=== PATIENT | female | born 1955 | race Caucasian/White ===

== ENCOUNTER 2020-02-02 19:32 | Inpatient (IN) ==
[2020-02-02] MEDS ORDERED: SODIUM CHLORIDE 0.9% 1000ML 500 ML IV ONE (19:55)
[2020-02-02] MEDS ORDERED: DEXAMETHASONE SOD INJ 10 MG/ML VIAL IV ONE (19:55)
--- NOTE | 2020-02-02 20:03 | Emergency Department Note ---
Impression & Plan COVID-19, Hypoxia, Breathlessness, Weakness, Pulmonary embolism ED Provider Note Provider: Edward Milligan MD DATE OF SERVICE:02/02/2020 CHIEF COMPLAINT: Shortness of breath, weakness HISTORY OF PRESENT ILLNESS: Patient is a 64-year-old female history of hypothyroidism presenting today with complaints of weakness and shortness of breath. Patient states began to have symptoms proximally January 13 was tested on January 18 and positive for coronavirus. Since that time has been dealing w ith intermittent fever shortness of breath and weakness. Patient states Levit of burning chest pain. Denies any nausea vomiting or significant diarrhea. Denies abdominal pain. Denies significant rash. States she has been monitoring her pulse ox at home has been wavering a little bit but today seem to be worse with more fatigue and shortness of breath and given this came here for evaluation. Dates she is significantly short of breath and weak when even trying to walk to the bathroom. Denies syncope. REVIEW OF SYSTEMS: A total of 10 review of systems was obtained and negative except as stated above in the HPI. 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 NECK: Trachea midline. LUNGS: Airway patent. No retractions but slightly tachypneic. HEART: Regular rate and rhythm. ABDOMEN: Soft and non-tender, without guarding or rebound. SKIN: Acyanotic, warm, dry, without rashes EXTREMITIES: Without swelling, tenderness or deformity NEUROLOGICAL: No focal deficits. No aphasia. No facial droop or slurred speech. EK bpm normal sinus rhythm. No acute ST segment elevation or depression. QTC 443. Some baseline wander is noted. CONTINUOUS CARDIAC MONITORING: was ordered and showed a heart rate of 95 bpm in normal sinus rhythm Patient's laboratory studies and imaging reviewed. Differential includes Reactive airway disease, pneumonia, pneumothorax, COPD, CHF, infections, cardiac ischemia, pulmonary embolism, musculoskeletal, gastrointestinal, as well as other pathologies. IMPRESSION/MEDICAL DECISION MAKING: Patient presents known Covid positive for the past 2 weeks now with worsening generalized weakness and found to be hypoxic on room air with exertion dropped into the high 70s. Put on 3 L oxygen with improvement. Given dexamethasone given the coronavirus results and recent data suggesting this improves hypoxic patient's outcome. Basic labs, lactate, influenza testing, D-dimer was sent. EKG was obtained as well as troponin of the lower suspicion for acute ACS as this is likely more generalized weakness from infectious source. Patient without significant focal deficit and I doubt acute stroke or intracranial hemorrhage. Patient does not appear meningitic. Benign abdomen on exam. CT of the chest was ordered to evaluate for possible PE. Elevated D-dimer. Bilateral PEs are noted. Start on Lovenox discussed with the hospitalist team. There was some heartburn given some Tylenol, Pepcid, and Mylanta. Discussed the patient findings recommendation for admission. Hospitalist was contacted. No evidence of troponin elevation or significant anemia. Slight leukopenia consistent with coronavirus infection. Patient is stable on 3 L oxygen and was agreeable with plan for admission given the PEs and hypoxia with coronavirus. DIAGNOSIS: COVID-19, shortness of breath, hypoxia, weakness, bilateral PEs DISPOSITION: Hospitalist will evaluate for admission Patient was agreeable with this plan. Critical Care I have personally spent 33 minutes of critical care time in the direct management of this patient. This includes bedside care, interpretation of diagnostic studies, and testing, discussion with consultants, patient, and family members, and other required patient management activities. These 33 minutes is in excess of all separately billable procedures. Preliminary Findings Only See Final Report For Complete Findings CTA CHEST: Impression: Multiple bilateral partially occlusive pulmonary emboli as describ ed. Multiple bilateral subpleural groundglass and interstitial opacities involving the lung eli in the diffuse pattern consistent with multifocal pneumonitis. Multiple lymph nodes along the aortopulmonary window and surrounding the trachea with borderline enlargement. Filling defect within the left pulmonary artery at the bifurcation extending into the mid proximal branches of the left upper lobe and left lower lobe segmental pulmonary branches consistent with multiple partially occlusive pul monary emboli. Similarly, on the right, there is filling defect extending into the mid proximal branch of the right middle lobe pulmonary artery and the posterior basal segmental branches of the right lower lobe pulmonary arteries. Partially occlusive thrombus within the anterior right apical segment of the right upper lobe pulmonary artery. Upper abdomen: Diffuse fatty liver. Minimal hiatal hernia. Multilevel degenerative disease of the spine. Radiologist: Alivia Pride MD Study ready at 21:24 and initial results transmitted at 21:42 Past Med/Surg History Medical History (Updated 02/02/20 @ 21:39 by Edward Milligan M.D.) Hypothyroidism Surgical History H/O knee surgery Social History Smoking Status: Former smoker Preferred Language: Armenian Feels Safe at Home: Yes Allergies Allergies Allergy/AdvReac Type Severity Reaction Status Date / Time prednisone Allergy Unknown RASH Verified 02/02/20 22:55 Home Meds Home Medications Medication Instructions Recorded Confirmed escitalopram oxalate 5 mg PO DAILY 09/04/19 02/02/20 levothyroxine 112 mcg PO DAILY 09/04/19 02/02/20 zolpidem 10 mg PO HS 09/04/19 02/02/20 Results & Data (ED) Vital Signs Vital Signs - 24 hr 02/02/20 19:35 02/02/20 19:40 02/02/20 19:44 Temperature 37.2 C Temperature Source Oral Pulse Rate 110 H 104 H Pulse Rate from SpO2 Sensor 104 H Respiratory Rate 24 21 Respiratory Effort / Characteristics Spontaneous Accessory Muscle Use Short of Breath Respiratory Depth Normal Respiratory Pattern Blood Pressure 137/84 156/91 H Blood Pressure Mean 101 106 Pulse Oximetry 87 L 78 L 96 Oxygen Delivery Method Room Air Room Air Oxygen Flow Rate Sepsis Recent Fever Within 48 Hours No Sepsis New/Unexplained Change in Mental Status No Sepsis Action Taken by Nursing Physician Notified Oxygen Flow Rate - Titration Pulse Oximetry Post Tiitration 02/02/20 19:45 02/02/20 19:49 02/02/20 20:01 Temperature Temperature Source Pulse Rate Pulse Rate from SpO2 Sensor Respiratory Rate Respiratory Effort / Characteristics Spontaneous Respiratory Depth Normal Respiratory Pattern Regular Blood Pressure Blood Pressure Mean Pulse Oximetry 78 L 98 Oxygen Delivery Method Room Air Nasal Cannula Nasal Cannula Oxygen Flow Rate 3 3 Sepsis Recent Fever Within 48 Hours Sepsis New/Unexplained Change in Mental Status Sepsis Action Taken by Nursing Oxygen Flow Rate - Titration 3 Pulse Oximetry Post Tiitration 94 02/02/20 20:30 02/02/20 21:00 02/02/20 21:31 Temperature Temperature Source Pulse Rate 90 85 87 Pulse Rate from SpO2 Sensor 91 H 88 88 Respiratory Rate 18 20 18 Respiratory Effort / Characteristics Respiratory Depth Respiratory Pattern Blood Pressure 132/80 126/81 149/99 H Blood Pressure Mean 91 91 111 Pulse Oximetry 96 95 97 Oxygen Delivery Method Nasal Cannula Nasal Cannula Nasal Cannula Oxygen Flow Rate 3 3 3 Sepsis Recent Fever Within 48 Hours Sepsis New/Unexplained Change in Mental Status Sepsis Action Taken by Nursing Oxygen Flow Rate - Titration Pulse Oximetry Post Tiitration Laboratory Data Result diagrams: 02/02/20 20:02/02/20 20: Lab Results 02/02/20 02/02/20 02/02/20 Range/Units 20: 20: 20: WBC 8.10 (4.8-10.8) K/uL RBC 4.29 (4.2-5.4) M/uL Hgb 12.9 (12.0-16.0) g/dL Hct 39.3 (37-47) % MCV 91.6 (80-100) fL MCH 30.1 (25-34) pg MCHC 32.8 (32-36) g/dL RDW Std Deviation 44.7 (36.4-46.3) fL RDW Coeff of Mis 13.4 (11.5-14.5) % Plt Count 360 (130-400) K/uL MPV 9.3 (7.4-10.4) fL Immature Gran % (Auto) 0.2 % Neut % (Auto) 64.9 % Lymph % (Auto) 23.6 % Phillips % (Auto) 9.9 % Eos % (Auto) 1.2 % Baso % (Auto) 0.2 % Neut # (Auto) 5.25 (1.4-6.5) K/uL Lymph # (Auto) 1.91 (1.2-3.4) K/uL Phillips # (Auto) 0.80 H (0.11-0.59) K/uL Eos # (Auto) 0.10 (0-0.5) K/uL Baso # (Auto) 0.02 (0-0.2) K/uL Immature Gran # (Auto) 0.02 (0.00-0.02) K/uL Absolute Nucleated RBC 0.11 H (0-0) K/uL Nucleated RBC % (auto) 1.4 % PT 11.1 (9.0-12.0) Seconds INR 1.1 (0.9-1.1) APTT 25.6 (21.0-31.0) Seconds PTT Ratio 0.9 D-Dimer 6240 H* (0-500) ug/L FEU Sodium 140 (136-145) mmol/L Potassium 3.6 (3.5-5.1) mmol/L Chloride 108 H (98-107) mmol/L Carbon Dioxide 26 (21-32) mmol/L Anion Gap 6.0 (3-11) BUN 9 (7-18) mg/dl Creatinine 0.97 (0.6-1.2) mg/dl Est Cr Clr Drug Dosing 59.0 ml/min Est GFR ( Amer) 70.5 Est GFR (Non-Af Amer) 60.9 BUN/Creatinine Ratio 9.5 L (10-20) Glucose 117 H (70-99) mg/dl Lactate (0.4-2.0) mmol/L Calcium 9.0 (8.5-10.1) mg/dl Magnesium 2.1 (1.8-2.4) mg/dl Total Bilirubin 0.4 (0.2-1) mg/dl AST 18 (15-37) U/L ALT 28 (12-78) U/L Alkaline Phosphatase 57 (45-117) U/L Troponin I < 0.015 (0-0.045) ng/ml C-Reactive Protein 3.78 H (0-0.29) mg/dl Total Protein 7.3 (6.4-8.2) gm/dl Albumin 3.1 L (3.4-5.0) gm/dl Globulin 4.2 H (2.5-4.0) gm/dl Albumin/Globulin Ratio 0.7 L (0.9-2) TSH 3.740 (0.300-4.500) uIu/ml Influ A Molecular Assay (Negative) Influ B Molecular Assay (Negative) 02/02/20 02/02/20 Range/Units 20:46 20:55 WBC (4.8-10.8) K/uL RBC (4.2-5.4) M/uL Hgb (12.0-16.0) g/dL Hct (37-47) % MCV (80-100) fL MCH (25-34) pg MCHC (32-36) g/dL RDW Std Deviation (36.4-46.3) fL RDW Coeff of Mis (11.5-14.5) % Plt Count (130-400) K/uL MPV (7.4-10.4) fL Immature Gran % (Auto) % Neut % (Auto) % Lymph % (Auto) % Phillips % (Auto) % Eos % (Auto) % Baso % (Auto) % Neut # (Auto) (1.4-6.5) K/uL Lymph # (Auto) (1.2-3.4) K/uL Phillips # (Auto) (0.11-0.59) K/uL Eos # (Auto) (0-0.5) K/uL Baso # (Auto) (0-0.2) K/uL Immature Gran # (Auto) (0.00-0.02) K/uL Absolute Nucleated RBC (0-0) K/uL Nucleated RBC % (auto) % PT (9.0-12.0) Seconds INR (0.9-1.1) APTT (21.0-31.0) Seconds PTT Ratio D-Dimer (0-500) ug/L FEU Sodium (136-145) mmol/L Potassium (3.5-5.1) mmol/L Chloride (98-107) mmol/L Carbon Dioxide (21-32) mmol/L Anion Gap (3-11) BUN (7-18) mg/dl Creatinine (0.6-1.2) mg/dl Est Cr Clr Drug Dosing ml/min Est GFR ( Amer) Est GFR (Non-Af Amer) BUN/Creatinine Ratio (10-20) Glucose (70-99) mg/dl Lactate 1.1 (0.4-2.0) mmol/L Calcium (8.5-10.1) mg/dl Magnesium (1.8-2.4) mg/dl Total Bilirubin (0.2-1) mg/dl AST (15-37) U/L ALT (12-78) U/L Alkaline Phosphatase (45-117) U/L Troponin I (0-0.045) ng/ml C-Reactive Protein (0-0.29) mg/dl Total Protein (6.4-8.2) gm/dl Albumin (3.4-5.0) gm/dl Globulin (2.5-4.0) gm/dl Albumin/Globulin Ratio (0.9-2) TSH (0.300-4.500) uIu/ml Influ A Molecular Assay Negative (Negative) Influ B Molecular Assay Negative (Negative) Administered Medications Discontinued Medications Acetaminophen (Acetaminophen 500 Mg Tab) 1,000 mg PO NOW STA Stop: 02/02/20 21:29 Last Admin: 02/02/20 21:45 Dose: 1,000 mg Documented by: [id number] Al Hydrox/Mg Hydrox/Simethicone (Gi Cocktail Ed Use) Confirm Administered Dose 1 dose PO .STK-MED ONE Stop: 02/02/20 21:40 Last Admin: 02/02/20 21:44 Dose: 1 dose Documented by: [id number] Al Hydrox/Mg Hydrox/Simethicone 18 ml/ Lidocaine HCl 6 ml/ BARCODE IDENTIFIER 1 ea 0 ml PO ONE ONE Stop: 02/02/20 21:29 Last Admin: 02/02/20 21:45 Dose: Not Given Documented by: [id number] Dexamethasone (Dexamethasone Sod Inj 10 Mg/Ml Vial) 6 mg IV NOW ONE Stop: 02/02/20 19:56 Last Admin: 02/02/20 20:14 Dose: 6 mg Documented by: [id number] Enoxaparin Sodium (Enoxaparin 1 Mg/Kg) 1 mg SQ ONCE STA Stop: 02/02/20 21:29 Last Admin: 02/02/20 21:47 Dose: Not Given Documented by: [id number] Enoxaparin Sodium (Enoxaparin 80 Mg/0.8 Ml Syr) 80 mg SQ NOW ONE Stop: 02/02/20 21:46 Last Admin: 02/02/20 21:46 Dose: 80 mg Documented by: [id number] Sodium Chloride (Nss 1000ml) 500 mls @ 999 mls/hr IV .Q31M ONE Stop: 02/02/20 20:25 Last Infusion: 02/02/20 20:42 Dose: 0 mls/hr Documented by: [id number] Admin: 02/02/20 20:15 Dose: 999 mls/hr Documented by: [id number] Famotidine (Pepcid 20mg Iv Push) 20 mg in 5 mls @ 2.5 mls/min IV NOW STA Stop: 02/02/20 21:29 Last Admin: 12/01/20 21:45 Dose: 2.5 mls/min Documented by: [id number] Ioversol (Optiray 320 125ml) 118 ml IV ONCE ONE Stop: 02/02/20 20:40 Last Admin: 02/02/20 20:40 Dose: 1 ml Documented by: [id number] Discharge Plan Visit Data Chief Complaint: Shortness of Breath/Dyspnea Stated Complaint: SOB ED Provider: Edward Milligan Discharge Problem: COVID-19, Hypoxia, Breathlessness, Weakness, Pulmonary embolism Patient Disposition: Admitted As Inpatient Condition: Fair Forms Stand Alone Forms: [facility] Prescriptions Prescriptions: No Action zolpidem 10 mg tablet 10 mg PO HS RF: 0 levothyroxine 112 mcg tablet 112 mcg PO DAILY RF: 0 escitalopram oxalate 5 mg tablet 5 mg PO DAILY RF: 0 Referrals Referrals: Lewis Nascimento MD [Primary Care Provider] - Discharge Problem: Pulmonary embolism Qualifiers: Pulmonary embolism type: unspecified Chronicity: acute Acute cor pulmonale presence: without acute cor pulmonale Qualified Code(s): I26.99 - Other pulmonary embolism without acute cor pulmonale
[2020-02-02 20:11] LABS: Basophils # (auto) 0.02 K/uL (0-0.2); Basophils % (auto) 0.2 %; Eosinophils % (auto) 1.2 %; Hematocrit (blood only) 39.3 % (37-47); Hemoglobin 12.9 g/dL (12.0-16.0); Immature Granulocytes # (auto) 0.02 K/uL (0.00-0.02); Immature Granulocytes % (auto) 0.2 %; Lymphocytes # (auto) 1.91 K/uL (1.2-3.4); Lymphocytes % (auto) 23.6 %; Mean Corpuscular Hemoglobin 30.1 pg (25-34); Mean Corpuscular Hgb Conc 32.8 g/dL (32-36); Mean Corpuscular Volume 91.6 fL (80-100); Mean Platelet Volume 9.3 fL (7.4-10.4); Monocytes % (auto) 9.9 %; Neutrophils # (auto) 5.25 K/uL (1.4-6.5); Neutrophils % (auto) 64.9 %; Nucleated RBC # (auto) 0.11 K/uL (0-0); Nucleated RBC % (auto) 1.4 %; Platelet Count 360 K/uL (130-400); RDW Coefficient of Variation 13.4 % (11.5-14.5); RDW Standard Deviation 44.7 fL (36.4-46.3); Red Blood Count 4.29 M/uL (4.2-5.4)
[2020-02-02 20:30] LABS: INR 1.1 (0.9-1.1); Partial Thromboplastin Ratio 0.9; Partial Thromboplastin Time 25.6 Seconds (21.0-31.0); Prothrombin Time 11.1 Seconds (9.0-12.0)
[2020-02-02 20:35] LABS: Alanine Aminotransferase 28 U/L (12-78); Albumin Level 3.1 gm/dl (3.4-5.0); Aspartate Aminotransferase 18 U/L (15-37); BUN Creatinine Ratio 9.5 (10-20); Blood Urea Nitrogen 9 mg/dl (7-18); Carbon Dioxide 26 mmol/L (21-32); Chloride 108 mmol/L (98-107); Est GFR (African American) 70.5; Est GFR (Non-African American) 60.9; Glucose 117 mg/dl (70-99); Magnesium 2.1 mg/dl (1.8-2.4); Potassium 3.6 mmol/L (3.5-5.1); Sodium 140 mmol/L (136-145)
[2020-02-02] MEDS ORDERED: OPTIRAY 320 125ml IV ONE (20:39)
[2020-02-02 20:46] LABS: Albumin Globulin Ratio 0.7 (0.9-2); Alkaline Phosphatase 57 U/L (45-117); Bilirubin,Total 0.4 mg/dl (0.2-1); C Reactive Protein 3.78 mg/dl (0-0.29); Globulin 4.2 gm/dl (2.5-4.0); Total Protein 7.3 gm/dl (6.4-8.2); Troponin I < 0.015 ng/ml (0-0.045)
--- NOTE | 2020-02-02 20:46 | XRay Report ---
XR chest 1V portable HISTORY: 64 years-old Female Dyspnea acute shortness of breath. COMPARISON: Chest radiograph 06/08/2015 TECHNIQUE: Portable AP view of the chest FINDINGS: Cardiac silhouette is upper limits of normal in size. Subpleural predominant ill-defined airspace opa cities. No pneumothorax, large pleural effusion or overt pulmonary edema. Degenerative changes of the shoulders and spine. IMPRESSION: Subpleural predominant ill-defined airspace opacities are compatible with a nonspecific i nfectious or inflammatory pneumonitis, likely viral pneumonia. ACT 112: Negative or not required by law. The above report was generated using voice recognition software. It may contain grammatical, syntax o r spelling errors. Electronically signed by: Kolton Agudelo M.D. 02/02/2020 8:44 PM
[2020-02-02 21:07] LABS: D Dimer 6240 ug/L FEU (0-500)
[2020-02-02] MEDS ORDERED: ALUMINUM/MAGNESIUM SUSP 18 ML, LIDOCAINE HCL VISCOUS 2% 6 ML, BARCODE IDENTIFIER 1 EA PO ONE (21:28)
[2020-02-02] MEDS ORDERED: FAMOTIDINE 20MG IV PUSH 20 MG/5 ML SYR IV STA (21:28)
[2020-02-02] MEDS ORDERED: ACETAMINOPHEN 500 MG TAB PO STA (21:28)
[2020-02-02] MEDS ORDERED: ENOXAPARIN 1 MG/KG SQ STA (21:28)
[2020-02-02] MEDS ORDERED: GI COCKTAIL ED USE PO ONE (21:39)
[2020-02-02] MEDS ORDERED: ENOXAPARIN 80 MG/0.8 ML SYR SQ ONE (21:45)
[2020-02-02 21:59] LABS: Influenza A virus by PCR Negative (Negative); Influenza B virus by PCR Negative (Negative)
[2020-02-03 00:29] LABS: Appearance Urine Clear (Clear); Bacteria Urine Automated Negative (Negative); Bilirubin Urine Negative (Negative); Blood Urine Negative (Negative); Color Urine Yellow; Glucose Urine UA Negative (Negative); Ketones Urine Negative (Negative); Leukocyte Esterase Urine 1+ (Negative); Nitrite Urine Negative (Negative); Protein Urine Negative (Negative); RBC Urine Automated 0-4 /hpf (0-4); Specific Gravity Urine 1.018 (1.000-1.030); Urobilinogen Urine Negative (Negative)
--- NOTE | 2020-02-03 00:38 | History and Physical Report ---
DATE OF ADMISSION: 02/02/2020 CHIEF COMPLAINT: Shortness of breath. HISTORY OF PRESENT ILLNESS: A 64-year-old female with past medical history significant for hypothyroidism, insomnia, depression with anxiety, who was recently diagnosed with COVID on 01/19/2020, prior to that she has symptoms for 2-3 days, she is quarantining at home. 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 She was doing fine until a couple of days ago. She did not have any fever for the last couple of days, but she started noticing some chest discomfort and shortness of breath on exertion which got worse yesterday and today and today with minimal activity she was feeling short of breath. She says she checked her pulse ox and it was in 70% so she came to the ER. In the ER when she came in, oxygen was 78% on room air, on 3 liters, she is saturating in mid 90s. Currently resting comfortably. She says she does not have much discomfort at this time. Her nose was dry yesterday but not much runny nose, no sore throat. She had some loss of sense of smell and taste, but that got resolved a few days back, but appetite is not back yet. She lost several pounds. Denies any headache, no blurred vision, no earache. She has a minimal cough, not bringing phlegm. Was nauseous earlier, but no nausea now, no abdominal pain. Had loose stools a couple of days ago, but that resolved. Normal bladder movements. She has some rash in the chest region. She thinks it is from lying on the back and from the sweating, it is mild rash. Currently resting comfortably, talking in full sentences. In the ER, imaging studies showed bilateral PE and she was given a shot of Lovenox and also dexamethasone. ALLERGIES: No known drug allergies. PAST MEDICAL HISTORY: As mentioned above. PAST SURGICAL HISTORY: Abdominal surgery in 2014, arthroscopy of knee joint, carpal tunnel surgery, colonoscopy, bilateral cataract surgeries, right meniscus repair. MEDICATIONS: The patient is on Lexapro 5 mg p.o. daily, levothyroxine 112 mcg p.o. daily, Ambien 10 mg p.o. at bedtime. FAMILY HISTORY: Significant for father had heart disorder. SOCIAL HISTORY: . Former smoker, quit in 1994. Alcohol rarely. No drug use. REVIEW OF SYMPTOMS: As per HPI. Rest of review of symptoms negative. PHYSICAL EXAMINATION: GENERAL: The patient is of moderate build, not in acute distress. VITAL SIGNS: Temperature 37.8, pulse 87, respiratory rate 18, blood pressure 149/99, and oxygen was 78% on room air, 97% on 3 liters. HEENT: Pupils equal, round, reactive to light. Oral mucosa moist. NECK: Supple, no neck masses seen. CARDIOVASCULAR: S1, S2 heard heard, regular rate and rhythm, no murmur, no gallop. RESPIRATORY SYSTEM: Normal AP diameter. No accessory muscle use. No wheezing, no crackles. ABDOMEN: Soft, bowel sounds present, nontender. No distention. CENTRAL NERVOUS SYSTEM: Cranial nerves II-XII grossly intact, nonfocal. EXTREMITIES: No edema, no erythema. LABORATORY DATA: WBC 8.1, hemoglobin 12.9, hematocrit 39.3, platelets 360. PT 11.1, INR 1.1, APTT 25.6. D-dimer 6240. Sodium 140, potassium 3.6, chloride 108, bicarbonate 26, BUN 9, creatinine 0.9, serum glucose 117, lactate 1.1, calcium 9, magnesium 2.1, total bilirubin 0.4, AST 18, ALT 28, alkaline phosphatase 57. Troponin I less than 0.015. TSH 3.7. Influenza A and B negative. IMAGING: Chest x-ray, subpleural predominant ill-defined airspace opacities are compatible with nonspecific infectious or inflammatory pneumonitis, likely viral pneumonia. CTA of the chest preliminary report multiple bilaterally partially occlusive pulmonary emboli, multiple bilateral subpleural ground-glass and interstitial opacity involving the lung eli in a diffuse pattern consistent with multifocal pneumonitis, multiple lymph nodes along the aortopulmonary window and surrounding trachea with borderline enlargement, filling defect within the left pulmonary artery at the bifurcation extending to the mid proximal branch of the left upper lobe and left lower lobe segmental pulmonary artery branches consistent with multiple partially occlusive pulmonary emboli. Similarly in the right there is a filling defect extending into the mid proximal branch of the right middle lobe pulmonary artery and the posterior basal segmental branches of the right lower lobe pulmonary arteries, partially occlusive thrombus of the right anterior, right apical segment of the right upper lobe pulmonary artery. EKG: Normal sinus rhythm with rate of 100, no significant change was seen. ASSESSMENT AND PLAN: A 64-year-old female who was recently diagnosed with COVID, comes with increasing shortness of breath and hypoxia and found to have bilateral pulmonary embolism. 1. Hypoxia bilateral pulmonary embolism,diagnosed with COVID 19 on 01/19/2020, was quarantining at home, became short of breath, was getting worse in last [address] A chest showing bilateral PE. Started on Lovenox, which we will continue and monitor in tele floor. Requiring oxygenation.We will also get echocardiogram to check for any right heart strain , and lower extremity Doppler for clot burden.. Troponin is negative. We will closely monitor. 2. COVID-19 pneumonia. The patient was diagnosed with COVID-19 01/19/2020. She has symptoms 2-3 days prior to that.Received a dose dexamethasone in the ER.Discussed with the Pulmonary. Says has no benefit currently with remdesivir or dexamethasone. We will follow with supportive care and treat the PE for now. Her lactic acid was normal and troponin is negative. Rest of the labs are fine. Will follow d dimer, ferritin and troponin levels in am . Will continue airborne and contact isolation precautions. 3. Hypothyroidism. Continue Synthroid. 4. Depression, anxiety. Continue Lexapro. 5. Deep venous thrombosis prophylaxis on Lovenox. DISPOSITION: Closely monitor in tele floor. Level 1 full code. MTDD
[2020-02-03] MEDS ORDERED: ACETAMINOPHEN 325 MG TAB PO PRN (02:42)
[2020-02-03] MEDS ORDERED: NITROGLYCERIN SL 0.4 MG/TAB TAB SL PRN (02:42)
[2020-02-03] MEDS ORDERED: POLYETHYLENE (MIRALAX) 17 GM PACK PO PRN (02:42)
[2020-02-03] MEDS: LEVOTHYROXINE SODIUM 112 MCG TABLET PO SCH (05:45)
[2020-02-03] MEDS: ESCITALOPRAM OXALATE 10 MG TAB PO SCH (05:45)
[2020-02-03 06:03] LABS: Basophils # (auto) 0.01 K/uL (0-0.2); Basophils % (auto) 0.1 %; Hematocrit (blood only) 39.4 % (37-47); Hemoglobin 12.8 g/dL (12.0-16.0); Immature Granulocytes # (auto) 0.01 K/uL (0.00-0.02); Immature Granulocytes % (auto) 0.1 %; Lymphocytes # (auto) 0.84 K/uL (1.2-3.4); Lymphocytes % (auto) 11.1 %; Mean Corpuscular Hemoglobin 30.1 pg (25-34); Mean Corpuscular Hgb Conc 32.5 g/dL (32-36); Mean Corpuscular Volume 92.7 fL (80-100); Mean Platelet Volume 9.4 fL (7.4-10.4); Monocytes # (auto) 0.07 K/uL (0.11-0.59); Monocytes % (auto) 0.9 %; Neutrophils # (auto) 6.66 K/uL (1.4-6.5); Neutrophils % (auto) 87.8 %; Platelet Count 421 K/uL (130-400); RDW Coefficient of Variation 13.4 % (11.5-14.5); Red Blood Count 4.25 M/uL (4.2-5.4); White Blood Count 7.59 K/uL (4.8-10.8)
[2020-02-03 06:30] LABS: BUN Creatinine Ratio 8.7 (10-20); Blood Urea Nitrogen 8 mg/dl (7-18); Calcium 8.9 mg/dl (8.5-10.1); Carbon Dioxide 26 mmol/L (21-32); Chloride 109 mmol/L (98-107); Creatinine Clr Calc Pharmacy 64.5 ml/min; Est GFR (African American) 79.4; Est GFR (Non-African American) 68.5; Glucose 173 mg/dl (70-99); Magnesium 2.3 mg/dl (1.8-2.4); Sodium 139 mmol/L (136-145)
[2020-02-03 06:37] LABS: Ferritin 476.2 ng/ml (8-388); Troponin I < 0.015 ng/ml (0-0.045)
[2020-02-03 06:52] LABS: D Dimer 4450 ug/L FEU (0-500)
--- NOTE | 2020-02-03 07:02 | CT Scan Report ---
CT ANGIOGRAM OF THE CHEST CLINICAL HISTORY: Dyspnea, +COVID FEVER, COUGH COMPARISON STUDY: Chest x-ray dated 02/02/2020 TECHNIQUE: Following the IV administration of 118 mL of [id number]-320, CT angiogram of the thorax was p erformed from the thoracic inlet to the lung bases utilizing the pulmonary embolus protocol. Images a re reviewed in the axial, sagittal, and coronal planes. IV contrast was administered without complica tion. MIP imaging was performed. A dose lowering technique was utilized adhering to the principles o f ALARA. CT DOSE: 580.40 mGy.cm FINDINGS: There is hepatic steatosis. There are borderline enlarged mediastinal and hilar lymph nodes, likely reactive. There was no evidence of thoracic aortic dilatation. There are bilateral multilobar pulmonary artery filling defects indicative of acute pulmonary embolis m. There is slight straightening of the intraventricular septum. There are peripheral groundglass pulmonary opacities, likely secondary to a multifocal pneumonitis. T here are dependent lower lobe airspace opacities, atelectatic versus infectious/inflammatory There are no significant pleural effusions IMPRESSION: 1. Acute bilateral pulmonary embolism 2. Multifocal airspace opacities consistent with a multifocal pneumonitis 3. Hepatic steatosis 4. Borderline enlarged mediastinal and hilar lymph nodes ACT 112: Negative or not required by law. Electronically signed by: Preston Flores M.D. 02/03/2020 7:01 AM
--- NOTE | 2020-02-03 07:27 | Ultrasound Report ---
US venous doppler LE BI CLINICAL HISTORY: Pulmonary embolism. COVID POSITIVE PATIENT COMPARISON STUDY: No previous studies for comparison. FINDINGS: Real-time and color flow Doppler imaging were performed. Flow was seen within the femoral, popliteal and calf veins with no intraluminal thrombus demonstrated. The saphenous vein is patent. IMPRESSION: No evidence of lower extremity DVT. ACT 112: Negative or not required by law. Electronically signed by: Preston Flores M.D. 02/03/2020 7:26 AM
[2020-02-03] MEDS: ENOXAPARIN 80 MG/0.8 ML SYR SQ SCH ×2 (08:57→20:07)
--- NOTE | 2020-02-03 14:07 | Electrocardiogram Report ---
Test Reason : Blood Pressure : / mmHG Vent. Rate : 100 BPM Atrial Rate : 100 BPM P-R Int : 138 ms QRS Dur : 076 ms QT Int : 344 ms P-R-T Axes : 033 016 023 degrees QTc Int : 443 ms Poor data quality, interpretation may be adversely affected Normal sinus rhythm When compared with ECG of 08-JUN-2015 21:35, No significant change was found Confirmed by Ross Valle ([id number]) on 02/03/2020 2:07:11 PM Referred By: REFERRED SELF Confirmed By:Travon Valle
--- NOTE | 2020-02-03 14:13 | Electrocardiogram Report ---
Test Reason : Blood Pressure : / mmHG Vent. Rate : 066 BPM Atrial Rate : 066 BPM P-R Int : 148 ms QRS Dur : 070 ms QT Int : 426 ms P-R-T Axes : 046 008 012 degrees QTc Int : 446 ms Poor data quality, interpretation may be adversely affected Normal sinus rhythm Normal ECG When compared with ECG of 02-FEB-2020 19:49, (unconfirmed) Vent. rate has decreased BY 34 BPM Confirmed by Ross Valle ([id number] on 02/03/2020 2:13:33 PM Referred By: REFERRED SELF Confirmed By:Travon Valle
--- NOTE | 2020-02-03 15:53 | Hospitalist Progress Note ---
Date of Service February 03, 2020 Assessment & Plan (1) Pulmonary embolism: Patient is a 64 yr female who was recently diagnosed with COVID, comes with worsening SOB and hypoxia and found to have B/L Pulmonary Embolism. Acute respiratory failure with hypoxia Acute bilateral pulmonary embolism Recently diagnosed with COVID on 01/19/2020 --CTA:Acute bilateral pulmonary embolism. Multifocal airspace opacities consistent with a multifocal pneumonitis. Hepatic steatosis. Borderline enlarged mediastinal and hilar lymph nodes -Venous Doppler:No evidence of lower extremity DVT. -Elevated D-dimer -Negative troponin X2 Denies cough, chest pain, hemoptysis -Discussed with Atmospheric Scientist electrician front--No indication for remdesivir, dexamethasone currently as per pulmonology -Continue Lovenox BID at therapeutic dose -Plan to transition to oral anticoagulation as able -Continue supplemental oxygen as needed -Continue Isolation precautions -Hypercoagulable work-up as outpatient -May need 2 step prior to discharge Hypothyroidism Continue Levothyroxine Depression, anxiety Continue Lexapro, Zolpidem DVT Px: On Lovenox Code Status Full Code DISPOSITION: Expected discharge home when medically stable Admission and Anticipated Discharge Date Admission Date: February 02, 2020 Subjective Patient is seen and examined at bedside Reports dyspnea on exertion Also states having mild headache this morning Denies cough, hemoptysis, chest pain, nausea, vomiting, abdominal pain Offers no other complaints Discussed with pulmonology this morning Review of Systems Review of Systems: All systems reviewed & are unremarkable except as noted in HPI & below Physical Exam Physical Exam: Physical Exam: Vitals signs as noted above General Appearance:Moderately built and nourished, no apparent distress Head: normocephalic, Atraumatic Eyes: normal inspection, EOMI Neck: supple, Trachea midline Respiratory/Chest: Normal breath sounds, CTA, No accessory muscle use Cardiovascular: S1, S2, No murmur Abdomen/GI:Soft, Non tender, Bowel sounds present Extremities/Musculoskelatal:normal inspection, no edema Neurologic/Psych:AAOX3, grossly no focal neurological deficits Skin: normal color, warm Results & Data Results & Data ([facility]) Vital Signs (Past 12 Hours) Vital Signs Temp Pulse Resp BP Pulse Ox 02/03/20 15:17 70 24 114/72 95 02/03/20 13:23 36.7 C 72 20 130/75 95 02/03/20 07:24 36.6 C 69 18 141/77 H 95 Laboratory Results Short CBC 02/02/20 02/03/20 Range/Units 20:01 05:29 WBC 8.10 7.59 (4.8-10.8) K/uL Hgb 12.9 12.8 (12.0-16.0) g/dL Hct 39.3 39.4 (37-47) % Plt Count 360 421 H (130-400) K/uL BMP 02/02/20 02/03/20 20:01 05:29 Sodium 140 139 Potassium 3.6 4.0 Chloride 108 H 109 H Carbon Dioxide 26 26 BUN 9 8 Creatinine 0.97 0.88 Glucose 117 H 173 H Calcium 9.0 8.9 Cardiac Enzymes 02/02/20 02/03/20 Range/Units 20:01 05:29 Troponin I < 0.015 < 0.015 (0-0.045) ng/ml Liver Function 02/02/20 Range/Units 20:01 Total Bilirubin 0.4 (0.2-1) mg/dl AST 18 (15-37) U/L ALT 28 (12-78) U/L Alkaline Phosphatase 57 (45-117) U/L Albumin 3.1 L (3.4-5.0) gm/dl Urine 02/02/20 Range/Units 23:00 Urine Color Yellow Urine Appearance Clear (Clear) Urine pH 7.0 (4.5-7.5) Ur Specific [place] 1.018 (1.000-1.030) Urine Protein Negative (Negative) Urine Glucose (UA) Negative (Negative) (1) Pulmonary embolism Acute cor pulmonale presence: without acute cor pulmonale Chronicity: acute Pulmonary embolism type: unspecified Qualified Code(s): I26.99 - Other pulmonary embolism without acute cor pulmonale
[2020-02-03] MEDS: ZOLPIDEM TARTRATE 5 MG TAB PO PRN (21:33)
[2020-02-04] MEDS: LEVOTHYROXINE SODIUM 112 MCG TABLET PO SCH (05:53)
[2020-02-04] MEDS: ESCITALOPRAM OXALATE 10 MG TAB PO SCH (05:54)
[2020-02-04] MEDS: ENOXAPARIN 80 MG/0.8 ML SYR SQ SCH ×2 (05:57→20:04)
[2020-02-04 06:58] LABS: Calcium 9.1 mg/dl (8.5-10.1); Creatinine Clr Calc Pharmacy 68.8 ml/min; Est GFR (African American) 85.2; Est GFR (Non-African American) 73.5; Magnesium 2.4 mg/dl (1.8-2.4); Potassium 4.2 mmol/L (3.5-5.1)
--- NOTE | 2020-02-04 17:37 | Hospitalist Progress Note ---
Date of Service February 04, 2020 Assessment & Plan (1) Pulmonary embolism: Patient is a 64 yr female who was recently diagnosed with COVID, comes with worsening SOB and hypoxia and found to have B/L Pulmonary Embolism. Acute respiratory failure with hypoxia Acute bilateral pulmonary embolism Recently diagnosed with COVID on 01/19/2020 --CTA:Acute bilateral pulmonary embolism. Multifocal airspace opacities consistent with a multifocal pneumonitis. Hepatic steatosis. Borderline enlarged mediastinal and hilar lymph nodes -Venous Doppler:No evidence of lower extremity DVT. -Elevated D-dimer -Negative troponin X2 Denies cough, chest pain, hemoptysis -Discussed with Supervisor Of Instruction power generation technician--No indication for remdesivir, dexamethasone currently as per pulmonology -Continue Lovenox BID at therapeutic dose -Plan to transition to oral anticoagulation as able--Prefers Xarelto (Explained risks and benefits)--Patient agrees -Continue supplemental oxygen as needed -Continue Isolation precautions -Hypercoagulable work-up as outpatient -May need 2 step prior to discharge -Wean off of oxygen as able Hypothyroidism Continue Levothyroxine Depression, anxiety Continue Lexapro, Zolpidem DVT Px: On Lovenox Code Status Full Code DISPOSITION: Expected discharge home when medically stable Admission and Anticipated Discharge Date Admission Date: February 02, 2020 Subjective Patient is seen and examined at bedside Minimal non expectorant cough Dyspnea on exertion improved Denies any bleeding issues Headache resolved Denies hemoptysis, chest pain, nausea, vomiting, abdominal pain Requiring 2 to 3 L of supplemental oxygen to maintain saturation Review of Systems Review of Systems: All systems reviewed & are unremarkable except as noted in HPI & below Physical Exam Physical Exam: Physical Exam: Vitals signs as noted above General Appearance:Moderately built and nourished, no apparent distress Head: normocephalic, Atraumatic Eyes: normal inspection, EOMI Neck: supple, Trachea midline Respiratory/Chest: Normal breath sounds, CTA, No accessory muscle use Cardiovascular: S1, S2, No murmur Abdomen/GI:Soft, Non tender, Bowel sounds present Extremities/Musculoskelatal:normal inspection, no edema Neurologic/Psych:AAOX3, grossly no focal neurological deficits Skin: normal color, warm Results & Data Results & Data ([facility]) Vital Signs (Past 12 Hours) Vital Signs Temp Pulse Resp BP Pulse Ox 02/04/20 15:30 36.5 C 61 22 111/58 L 97 02/04/20 11:26 36.5 C 56 L 15 129/78 97 02/04/20 07:26 36.7 C 53 L 18 104/65 96 Laboratory Results [facility] 02/04/20 05:22 Sodium 143 Potassium 4.2 Chloride 111 H Carbon Dioxide 25 BUN 15 D Creatinine 0.83 Glucose 115 H Calcium 9.1 (1) Pulmonary embolism Acute cor pulmonale presence: without acute cor pulmonale Chronicity: acute Pulmonary embolism type: unspecified Qualified Code(s): I26.99 - Other pulmonary embolism without acute cor pulmonale
[2020-02-04] MEDS: ZOLPIDEM TARTRATE 5 MG TAB PO PRN (20:03)
[2020-02-05] MEDS: LEVOTHYROXINE SODIUM 112 MCG TABLET PO SCH (06:23)
[2020-02-05 06:49] LABS: BUN Creatinine Ratio 20.4 (10-20); Calcium 8.5 mg/dl (8.5-10.1); Creatinine Clr Calc Pharmacy 69.8 ml/min; Est GFR (African American) 86.4; Est GFR (Non-African American) 74.6; Potassium 4.1 mmol/L (3.5-5.1)
[2020-02-05] MEDS: ESCITALOPRAM OXALATE 10 MG TAB PO SCH (08:11)
[2020-02-05] MEDS: ENOXAPARIN 80 MG/0.8 ML SYR SQ SCH (08:12)
--- NOTE | 2020-02-05 15:41 | Hospitalist Progress Note ---
Date of Service February 05, 2020 Assessment & Plan (1) Pulmonary embolism: Patient is a 64 yr female who was recently diagnosed with COVID, comes with worsening SOB and hypoxia and found to have B/L Pulmonary Embolism. Acute respiratory failure with hypoxia Acute bilateral pulmonary embolism Recently diagnosed with COVID on 01/19/2020 --CTA:Acute bilateral pulmonary embolism. Multifocal airspace opacities consistent with a multifocal pneumonitis. Hepatic steatosis. Borderline enlarged mediastinal and hilar lymph nodes -Venous Doppler:No evidence of lower extremity DVT. -Elevated D-dimer -Negative troponin X2 Denies cough, chest pain, hemoptysis -Discussed with [facility] Nurse community relations director--No indication for remdesivir, dexamethasone currently as per pulmonology -Continue Lovenox BID at therapeutic dose -Plan to transition to oral anticoagulation as able--Prefers Xarelto (Explained risks and benefits)--Patient agrees -Continue supplemental oxygen as needed -Continue Isolation precautions -Hypercoagulable work-up as outpatient -Saturating low 90s on room air -2 STep: Requires 2 L of supplemental oxygen with activity. Hypothyroidism Continue Levothyroxine Depression, anxiety Continue Lexapro, Zolpidem DVT Px: On Lovenox Code Status Full Code DISPOSITION: Expected discharge home when medically stable Admission and Anticipated Discharge Date Admission Date: February 02, 2020 Subjective Patient is seen and examined at bedside States feeling much better today No new complaints Much less cough today Denies shortness of breath Denies hemoptysis, chest pain, nausea, vomiting, abdominal pain Saturating low 90s on room air Review of Systems Review of Systems: All systems reviewed & are unremarkable except as noted in HPI & below Physical Exam Physical Exam: Physical Exam: Vitals signs as noted above General Appearance:Moderately built and nourished, no apparent distress Head: normocephalic, Atraumatic Eyes: normal inspection, EOMI Neck: supple, Trachea midline Respiratory/Chest: Normal breath sounds, CTA, No accessory muscle use Cardiovascular: S1, S2, No murmur Abdomen/GI:Soft, Non tender, Bowel sounds present Extremities/Musculoskelatal:normal inspection, no edema Neurologic/Psych:AAOX3, grossly no focal neurological deficits Skin: normal color, warm Results & Data Results & Data ([facility]) Vital Signs (Past 12 Hours) Vital Signs Temp Pulse Pulse Pulse Pulse Pulse Pulse 02/05/20 15:33 105 H 02/05/20 15:00 36.9 C 85 02/05/20 11:41 75 82 77 70 02/05/20 10:51 36.7 C 69 02/05/20 07:37 36.6 C 62 02/05/20 07:36 52 L 02/05/20 05:11 36.5 C 62 Resp Resp Resp Resp Resp BP Pulse Ox 02/05/20 15:33 02/05/20 15:00 20 107/75 90 02/05/20 11:41 20 22 20 20 02/05/20 10:51 20 97/54 L 96 02/05/20 07:37 21 120/70 97 02/05/20 07:36 02/05/20 05:11 18 110/69 95 Pulse Ox Pulse Ox Pulse Ox Pulse Ox 02/05/20 15:33 02/05/20 15:00 02/05/20 11:41 93 86 L 91 91 02/05/20 10:51 02/05/20 07:37 02/05/20 07:36 02/05/20 05:11 Laboratory Results [facility] 02/05/20 05:47 Sodium 140 Potassium 4.1 Chloride 109 H Carbon Dioxide 26 BUN 17 Creatinine 0.82 Glucose 90 Calcium 8.5 (1) Pulmonary embolism Acute cor pulmonale presence: without acute cor pulmonale Chronicity: acute Pulmonary embolism type: unspecified Qualified Code(s): I26.99 - Other pulmonary embolism without acute cor pulmonale
--- NOTE | 2020-02-05 15:55 | Discharge Summary ---
Date of Service February 05, 2020 Admission HPI Per Admitting Provider CHIEF COMPLAINT: Shortness of breath. HISTORY OF PRESENT ILLNESS: A 64-year-old female with past medical history significant for hypothyroidism, insomnia, depression with anxiety, who was recently diagnosed with COVID on 01/19/2020, prior to that she has symptoms for 2-3 days, she is quarantining at home. 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 She was doing fine until a couple of days ago. She did not have any fever for the last couple of days, but she started noticing some chest discomfort and shortness of breath on exertion which got worse yesterday and today and today with minimal activity she was feeling short of breath. She says she checked her pulse ox and it was in 70% so she came to the ER. In the ER when she came in, oxygen was 78% on room air, on 3 liters, she is saturating in mid 90s. Currently resting comfortably. She says she does not have much discomfort at this time. Her nose was dry yesterday but not much runny nose, no sore throat. She had some loss of sense of smell and taste, but that got resolved a few days back, but appetite is not back yet. She lost several pounds. Denies any headache, no blurred vision, no earache. She has a minimal cough, not bringing phlegm. Was nauseous earlier, but no nausea now, no abdominal pain. Had loose stools a couple of days ago, but that resolved. Normal bladder movements. She has some rash in the chest region. She thinks it is from lying on the back and from the sweating, it is mild rash. Currently resting comfortably, talking in full sentences. In the ER, imaging studies showed bilateral PE and she was given a shot of Lovenox and also dexamethasone. Admission Exam Per Admitting Provider PHYSICAL EXAMINATION: GENERAL: The patient is of moderate build, not in acute distress. VITAL SIGNS: Temperature 37.8, pulse 87, respiratory rate 18, blood pressure 149/99, and oxygen was 78% on room air, 97% on 3 liters. HEENT: Pupils equal, round, reactive to light. Oral mucosa moist. NECK: Supple, no neck masses seen. CARDIOVASCULAR: S1, S2 heard heard, regular rate and rhythm, no murmur, no gallop. RESPIRATORY SYSTEM: Normal AP diameter. No accessory muscle use. No wheezing, no crackles. ABDOMEN: Soft, bowel sounds present, nontender. No distention. CENTRAL NERVOUS SYSTEM: Cranial nerves II-XII grossly intact, nonfocal. EXTREMITIES: No edema, no erythema. Principal Diagnosis Acute respiratory failure with hypoxia Acute bilateral pulmonary embolism Discharge Data Allergies Allergy/AdvReac Type Severity Reaction Status Date / Time prednisone Allergy Unknown RASH Verified 02/02/20 22:55 Consultations 02/02/20 21:27 ED Decision to Admit Stat 02/03/20 02:42 Consult Case Management - Discharge Planning Routine Procedures Performed CTA:Acute bilateral pulmonary embolism. Multifocal airspace opacities consistent with a multifocal pneumonitis. Hepatic steatosis. Borderline enlarged mediastinal and hilar lymph nodes Venous Doppler:No evidence of lower extremity DVT. Ordered Studies 02/02/20 19:43 CT angio chest PE protocol Urgent 02/03/20 02:42 US venous doppler LE BI Routine Hospital Course (1) Pulmonary embolism: Patient is a 64 yr female who was recently diagnosed with COVID, comes with worsening SOB and hypoxia and found to have B/L Pulmonary Embolism. Acute respiratory failure with hypoxia Acute bilateral pulmonary embolism Recently diagnosed with COVID on 01/19/2020 --CTA:Acute bilateral pulmonary embolism. Multifocal airspace opacities consistent with a multifocal pneumonitis. Hepatic steatosis. Borderline enlarged mediastinal and hilar lymph nodes -Venous Doppler:No evidence of lower extremity DVT. -Elevated D-dimer -Negative troponin X2 Denies cough, chest pain, hemoptysis -Discussed with Territory Sales Representative rehabilitation team lead--No indication for remdesivir, dexamethasone currently as per pulmonology -Continue Lovenox BID at therapeutic dose -Plan to transition to oral anticoagulation as able--Prefers Xarelto (Explained risks and benefits)--Patient agrees -Continue supplemental oxygen as needed -Continue Isolation precautions -Hypercoagulable work-up as outpatient -Saturating low 90s on room air -2 STep: Requires 2 L of supplemental oxygen with activity. Hypothyroidism Continue Levothyroxine Depression, anxiety Continue Lexapro, Zolpidem DVT Px: On Lovenox Code Status Full Code DISPOSITION: Expected discharge home when medically stable Total Time Total Time Spent Total Time Spent (In Minutes): 39 minutes Total Time Includes: Examination of the Patient, Discharge Planning, Medication Reconciliation, Communication With Other Providers and Other Discharge Plan Discharge Items Patient Disposition: Home - Self-Care Reason For Visit: SOB Discharge Diagnosis: Acute respiratory failure with hypoxia Acute bilateral pulmonary embolism Condition on Discharge: Fair Activity: Per Instructions section Exercise/Sports: Gradually increase as tolerated Non-emergency contact: Primary Care Provider Call non-emergency contact if: you have any medication questions, your symptoms worsen, your pain is not controlled, your pain is worsening, your pain is unusual for you, your pain is concerning for you and you have a fever Follow-up/Referrals: Lewis Nascimento MD [Primary Care Provider] - 02/10/20 11:20 am (Date & Time 02/10/2020 11:20 AM Provider Lewis Nascimento MD Department Family [facility] PLEASE NOTE: THIS HOSPITAL DISCHARGE FOLLOW UP IS A TELEVIDEO APPOINTMENT. PLEASE FOLLOW THE INSTRUCTIONS IN THE EMAIL THAT YOU WILL RECEIVE. IF YOU HAVE ANY QUESTIONS OR NEED TO CHANGE THE APPOINTMENT, PLEASE CALL ) Diet: Heart Healthy Addtl Attending Provider Instructions: Follow-up with your primary care physician on 02/10/2020 11:20 AM Use oxygen 2 L via nasal cannula with activity as advised Take Xarelto regularly: Start Xarelto 15 mg twice a day for 3 weeks and then 20 mg daily Get hypercoagulable work-up as advised as outpatient. Seek immediate medical attention if your symptoms reoccur or worsen Home Isolation COVID-19 Instructions The following information about Home Isolation is from the CDC Website: https://www.cdc.gov/coronavirus/2019-ncov/hcp/ulxkjawl-icrleow-uqroed.html Stay home except to get medical care People who are mildly ill with COVID-19 are able to isolate at home during their illness. You should restrict activities outside your home, except for getting medical care. Do not go to work, school, or public areas. Avoid using public transportation, ride-sharing, or taxis. Separate yourself from other people and animals in your home People: As much as possible, you should stay in a specific room and away from other people in your home. Also, you should use a separate bathroom, if available. Animals: You should restrict contact with pets and other animals while you are sick with COVID-19, just like you would around other people. Although there have not been reports of pets or other animals becoming sick with COVID-19, it is still recommended that people sick with COVID-19 limit contact with animals until more information is known about the virus. When possible, have another member of your household care for your animals while you are sick. If you are sick with COVID-19, avoid contact with your pet, including petting, snuggling, being kissed or licked, and sharing food. If you must care for your pet or be around animals while you are sick, wash your hands before and after you interact with pets and wear a face mask. Call ahead before visiting your doctor If you have a medical appointment, call the healthcare provider and tell them that you have or may have COVID-19. This will help the healthcare providers office take steps to keep other people from getting infected or exposed. Wear a face mask You should wear a face mask when you are around other people (e.g., sharing a room or vehicle) or pets and before you enter a healthcare providers office. If you are not able to wear a face mask (for example, because it causes trouble breathing), then people who live with you should not stay in the same room with you, or they should wear a face mask if they enter your room. Cover your coughs and sneezes Cover your mouth and nose with a tissue when you cough or sneeze. Throw used tissues in a lined trash can. Immediately wash your hands with soap and water for at least 20 seconds or, if soap and water are not available, clean your hands with an alcohol-based hand water main installer helper that contains at least 60% alcohol. Clean your hands often Wash your hands often with soap and water for at least 20 seconds, especially after blowing your nose, coughing, or sneezing; going to the bathroom; and before eating or preparing food. If soap and water are not readily available, use an alcohol-based hand water main installer helper with at least 60% alcohol, covering all surfaces of your hands and rubbing them together until they feel dry. Soap and water are the best option if hands are visibly dirty. Avoid touching your eyes, nose, and mouth with unwashed hands. Avoid sharing personal household items You should not share dishes, drinking glasses, cups, eating utensils, towels, or bedding with other people or pets in your home. After using these items, they should be washed thoroughly with soap and water. Clean all high-touch surfaces everyday High touch surfaces include counters, tabletops, doorknobs, bathroom fixtures, toilets, phones, keyboards, tablets, and bedside tables. Also, clean any surfaces that may have blood, stool, or body fluids on them. Use a household cleaning spray or wipe, according to the label instructions. Labels contain instructions for safe and effective use of the cleaning product including precautions you should take when applying the product, such as wearing gloves and making sure you have good ventilation during use of the product. Monitor your symptoms Seek prompt medical attention if your illness is worsening (e.g., difficulty breathing).Beforeseeking care, call your healthcare provider and tell them that you have, or are being evaluated for, COVID-19. Put on a face mask before you enter the facility. These steps will help the healthcare providers office to keep other people in the office or waiting room from getting infected or exposed. Ask your healthcare provider to call the local or state health department. Persons who are placed under active monitoring or facilitated self- monitoring should follow instructions provided by their local health department or occupational health professionals, as appropriate. When working with your local health department check their available hours. If you have a medical emergency and need to call 911, notify the dispatch personnel that you have, or are being evaluated for COVID-19. If possible, put on a face mask before emergency medical services arrive. Discontinuing home isolation Patients with confirmed COVID-19 should remain under home isolation precautions until the risk of secondary transmission to others is thought to be low. The decision to discontinue home isolation precautions should be made on a pkcp-dc-tsju basis, in consultation with healthcare providers and state and local health departments. Coronavirus disease 2019 (COVID-19) is a virus that causes a respiratory illness. It is caused by a coronavirus called 2019 novel coronavirus (2019- nCoV). There are many types of coronavirus. Coronaviruses are a very common cause of bronchitis. They may sometimes cause lung infection(pneumonia). Symptoms can range from mild to severe respiratory illness. These viruses are also foundin some animals. COVID-19 was first found in people in [facility], in late 2019. In 2020, several cases of COVID-19 have been confirmed in the [place] Public health officials are working to find the source. How the virus spreads is not yet fully known. It may be spread through droplets of fluid that a person coughs or sneezes into the air. It may be spread if you touch a surface with virus on it, such as a handle or object, and then touch your mouth. What are the symptoms of COVID-19? Some people have no symptoms or mild symptoms. Symptoms may appear 2 to 14 days after contact with the virus. Symptoms can include: Fever Coughing Trouble breathing What are possible complications from COVID-19? In many cases, this virus can cause infection (pneumonia) in both lungs. In some cases, this can cause . How is COVID-19 diagnosed? Your healthcare provider will ask about your symptoms. He or she will also ask about your recent travel and contact with sick people. Testing for the virus is only done through the [facility]. If yourhealthcare provider thinks you may have COVID- 19, he or she will work with your local health department and the CDC on testing. Follow all instructions from your healthcare provider. COVID-19 is diagnosed by: Nasal and throat swab. A cotton-tipped swab is wiped inside your nose or throat. This is done to check for viruses in your nasal mucus. Sputum culture. A small sample of mucus coughed from your lungs (sputum) is collected if you have a cough. It is checked for the virus. How is COVID-19 treated? There is currently no medicine to treat the virus. Treatment is done to help your body while it fights the virus. This is known as supportive care. Supportive care may include: Pain medicine. These include acetaminophen and ibuprofen. They are used to help ease pain and reduce fever. Bed rest. This helps your body fight the illness. For severe illness, you may need to stay in the hospital. Care during severe illness may include: IV (intravenous) fluids.These are given through a vein to help keep your body hydrated. Oxygen. Supplemental oxygen or ventilation with a breathing machine (ventilator) may be given. This is done to keep enough oxygen in your body. Are you at risk for COVID-19? If youve been to a place where people have been sick with this virus, you are at risk for infection. You are at risk if you: Recently traveled to an affected area Had contact with a sick person who recently traveled to this area Had contact with a person who was diagnosed with COVID-19 How can COVID-19 be prevented? There is no vaccine yet. The best prevention is to not have contact with the virus. The CDC advises that people should not travel to areas where there are COVID-19 outbreaks right now for any reason that is not urgent. To help prevent spreading the infection, wash your hands often, or use an alcohol-basedhand water main installer helper. If you are in an area with COVID-19: Wash your hands often. Or use an alcohol-based hand water main installer helper often. Only touch your eyes, nose, or mouth with clean hands. Dont have contact with people who are sick. Follow local instructions about being in public. For example, you may be told to not use public transport for a period of time. Stay away from markets that have live or animals. Wash your hands after touching any animals. Don't touch animals that may be sick. Dont share eating or drinking tools with sick people. Dont kiss someone who is sick. Clean surfaces often with disinfectant. If you were in an area with COVID-19 in the last 14 days: Call your healthcare provider. He or she can talk with local health staff to see what action may be needed. Follow all instructions from your provider. Take your temperature every morning and evening for at least 14 days. This is to check for fever. Keep a record of the readings. Keep watch for symptoms of the virus. Tell your provider right away if you have symptoms. If you were in an area with COVID-19 and have a fever or other symptoms: Dont panic. Keep in mind that other illnesses can cause similar symptoms. Stay away from work, school, and public places. Limit physical contact with family members. Don't kiss anyone or share eating or drinking utensils. Clean surfaces you touch with disinfectant. This is to help prevent the virus from spreading. Call your healthcare provider. Explain that you have been exposed to COVID-19 and have symptoms. Do this before going to any hospital. Wait for instructions. Keep in mind that healthcare staff may wear protective equipment such as masks, gowns, gloves, and eye protection. You may be put in a separate room. This is to prevent the possible virus from spreading. Tell the healthcare staff about recent travel. This includes local travel on public transport. Staff may need to find other people you have been in contact with. Follow all instructions the healthcare staff give you. If you have been diagnosed with COVID-19 Follow all instructions from your healthcare provider. Dont leave your home, except to get medical care. Call your healthcare providers office before going. They can prepare and give you instructions. This will help prevent the virus from spreading. Dont go to work, school, or public areas. Dont use public transport or taxis. Stay away from other people in your home. Have them wear face masks around you. Dont share household items or food. Wear a face mask if you can. This includes at home or in a medical facility. Cover your face with a tissue when you cough or sneeze. Throw the tissue away. Wash your hands. Wash your hands often. Caregivers should: Follow all instructions from healthcare staff. Wear a face mask and protective clothing as advised. Wash hands often. Keep track of the sick persons symptoms. Clean surfaces, fabrics, and laundry thoroughly. Keep other people away from the sick person. When to call your healthcare provider Call your healthcare provider: If youve recently traveled and have symptoms If you have been diagnosed with COVID-19 and your symptoms are worse To learn more To find out more about COVID-19, visit the CDC website at www.cdc.gov/coronavirus/2019-ncov/index.html. 9237-2269 [employer]. [address] [place] [address]. All rights reserved. This information is not intended as a substitute for professional medical care. Always follow your healthcare professional's instructions. This information has been adapted from [employer] Pending Studies at Discharge: No Stand-Alone Forms: My [facility] [employer], Smoking Cessation Medications and DC Order Prescriptions: New (DME) Oxygen Home Liters Per Minute 1 ea .Route UD Qty: 1 RF: 0 Xarelto DVT-PE Treat 30d Start 15 mg (42)- 20 mg (9) tablets,dose pack 1 ea PO UD Qty: 51 RF: 0 Continued zolpidem 10 mg tablet 10 mg PO HS RF: 0 levothyroxine 112 mcg tablet 112 mcg PO DAILY RF: 0 escitalopram oxalate 5 mg tablet 5 mg PO DAILY RF: 0 Discharge Orders: Discharge Order (Routine); Ordered 02/05/20 Ordered By: Edgar Sarah Admission Data Admit Date/Time: 02/02/20 23:02 Attending Provider: Edgar Sarah Admit Provider: Srinath Grady Primary Care Provider: Lewis Nascimento Other Providers: Srinath Grady Other Interventions: Discharge Summary Assessment (RN) Last Done: 02/05/20 15:41
--- NOTE | 2020-02-14 12:07 | Coding Query ---
PRESENT ON ADMISSION QUERY To promote full compliance with coding requirements relating to pateint care, physician participation is requested in all cases of wet process assistant head miller uncertainty. Please assist us with the question(s) below: Please place an X within the parenthesis (x). The following diagnosis listed in this patient's medical record require physician assistance to determine if they were present on admission (POA) or not. Please advise for each diagnosis whether it was present on admission, not present on admission, or if it was clinically undetermined. 1. ACUTE RESPIRATORY FAILURE WITH HYPOXIA (regarding the Acute Respiratory Failure with documentation beginning on 02/03/20 PN) ( x) Present On Admission ( ) Not Present On Admission ( ) Clinically Undetermined Thank you Ruth Bruce *Definition of the present on admission (POA)-Present on admission is defined as present at the time the order for inpatient admission occurs. Conditions that develop during an outpatient encounter prior to a written order for inpatient admission (including emergency department, observation, or outpatient surgery) are considered present on admission. ANTONIETAD
--- NOTE | 2020-02-14 12:24 | Coding Query ---
CODING QUERY To promote full compliance with coding requirements relating to patient care, provider participation is requested in all cases of fermentation operator uncertainty. Please assist us with the question(s) below: Coding Question(s): 1. There is documentation on the ER of COVID-19 with positive test results on 01/18 and "Slight leukopenia consistent with coronavirus infection. Patient is stable on 3 L oxygen and was agreeable with plan for admission given the PEs and hypoxia with coronavirus", and documentation on the H&P besided COVID-19 pneumonia that the patient received a dose of Dexamethasone in the ER, with documentation in the rest of the chart including the Discharge Summary of recent COVID-19. It is not clear if the patient was treated for COVID-19 or had history of COVID-19 with no current infection on this admission. Please specify below, in your clinical opinion. ( ) COVID-19 treated on this admission (x ) History only of COVID-19 on this admission with No current COVID-19 ( ) Other: Please Specify 2. The H&P documents COVID-19 Pneumonia. There is no further documentation in the Progress Notes or Discharge Summary of COVID-19 Pneumonia but documentation of, "Recently diagnosed with COVID on 01/19/2020 --CTA:Acute bilateral pulmonary embolism. Multifocal airspace opacities consistent with a multifocal pneumonitis". Please specify below, in your clinical opinion. ( ) COVID-19 Pneumonia treated on this admission ( x) History only of COVID-19 Pneumonia on this admission with No current COVID-19 Pneumonia ( ) Other Pneumonia treated: Please Specify 3. There is documentation of Acute Bilateral Pulmonary Embolism in patient with recent positive COVID-19 testing from 01/19/20. Please specify below, regarding the Pulmonary Embolism regarding etiology. (x ) Acute Bilateral Pulmonary Embolism is likely due to COVID-19 ( ) Acute Bilateral Pulmonary Embolism is likely due to Other: Please Specify ( ) Acute Bilateral Pulmonary Embolism from Unknown likely etiology Physician's Response(s): Thank you Ruth Bruce Principal Diagnosis: "that condition established after study, to be chiefly responsible for occasioning the admission of the patient to the hospital for care." Co-Existing Principal Diagnosis: "when two or more diagnoses equally meet the criteria for principal diagnosis as determined by the circumstances of admission, diagnostic work up, and/or therapy provided, and the Alphabetic Index, Tabular List, or another coding guideline does not provide sequencing direction, any one of the diagnoses may be sequenced first." "When the physician has documented what appears to be a current diagnosis in the body of the record, but has not included the diagnosis in the final diagnostic statement, the physician should be asked whether the diagnosis should be added." (Source Coding Clinic 2 QTR90. p3-4) MARY
== END 2020-02-05 17:04 | disposition home or self-care (01) | DRG 175 ==
LOC: ED 19:32 → SUATTDRO 23:02 → 2E 23:02

== ENCOUNTER 2023-09-16 09:10 | Inpatient (IN) ==
--- NOTE | 2023-09-16 09:30 | Emergency Department Note ---
Impression & Plan Vertigo, Ataxia, Stroke-like symptoms, Carotid arterial disease ED Provider Note NAME: ÁNGELA GIRALDO AGE: 68 SEX: F : 1955 ARRIVES VIA: Ambulance INFORMANT: Patient, EMS ED PROVIDER(S): Jeremy Rocha DO CHIEF COMPLAINT: Dizziness HPI: The patient is a 68-year-old female who presented to the emergency department by ambulance because of difficulty ambulating. The patient started having symptoms on Saturday. She initially went to stand up and felt her left leg was not working. She describes it as not being able to walk straight and was "drunk walking". I introduced this phrase to the patient and she agreed. The patient states that she has a slight frontal headache. She does complain of nausea but she has not had any vomiting. She denies having any recent falls. She also notices her left arm is not working well. The patient states that these symptoms resolved spontaneously. She continued to work. She called 911 this morning because she awoke with the symptoms this a.m. The patient states that she went to bed normally last evening. She had no symptoms at that time. The patient denies having any fevers. She has not been seen by her family doctor for the symptoms. She has no history of hypertension or irregular heartbeat. ROS: See above HPI for pertinent positives & negatives. A total of 10 systems reviewed and were otherwise negative. PAST MEDICAL HISTORY: See Below PAST SURGICAL HISTORY: See Below FAMILY HISTORY: See Below SOCIAL HISTORY: See Below HOME MEDICATIONS: See Below ALLERGIES: See Below VITALS: See Below PHYSICAL EXAMINATION: GENERAL: Patient is awake alert in no acute distress patient is resting comfortably and showing no signs of anxiety EYES: The conjunctivae are clear. The pupils are round and reactive. There is no nystagmus elicited. EARS, NOSE, MOUTH AND THROAT: The nose is without any evidence of any deformity. Mucous membranes are moist. Panic membranes are clear. NECK: The neck is nontender and supple. RESPIRATORY: Normal respiratory effort is noted there is no evidence of wheezing rhonchi or rales CARDIOVASCULAR: Regular rate and rhythm noted there no murmurs rubs or gallops normal S1 normal S2. GASTROINTESTINAL: The abdomen is soft. Abdomen is nontender. MUSCULOSKELETAL/EXTREMITIES: There is no evidence of gross deformity full range of motion is noted in the hips and shoulders. SKIN: There is no obvious evidence of any rash. There are no petechiae, pallor or cyanosis noted. NEUROLOGIC: Patient is awake alert and oriented x3. There is no drift in the upper extremities however there is a fine tremor noted in the left upper extremity. [id number] was symmetric. Marketing Services Specialist strength was symmetric. MEDICAL DECISION MAKING: The patient is a 68-year-old female who presented to the emergency department by ambulance for an evaluation of dizziness. The patient had an acute onset of dizziness which was associated with ataxia. In the emergency department the patient had a similar exam. The ataxia was worrisome for a central cause for her dizziness. I discussed patient's laboratory and radiographic studies with her. Given her physical exam findings I do feel that she would benefit from further inpatient management. [facility] have agreed to evaluate the patient in the emergency department. The patient was agreeable to the plan. Triage Nursing notes reviewed. Prior medical records reviewed Vital Signs: reviewed and remarkable for no significant abnormalities Differential diagnosis: Benign positional vertigo, dehydration, hypovolemia, anemia, tumor, infection, hypoglycemia, electrolyte abnormalities, cardiac sources, intracerebral event, toxicologic, neurologic, as well as other pathologies. ER treatment provided: See below Diagnostics interpreted by me: ECG: EKG was obtained in the emergency department. My interpretation is normal sinus rhythm at 74 bpm. There is no ectopy. There is no acute ST segment abnormalities noted. This was compared to a tracing from May 23, 2023. No changes were noted. Cardiac Monitoring: An order was placed for continuous cardiac monitoring. The monitor shows a rate of 75 bpm with sinus rhythm. Laboratory studies: As stated above and show below. Imaging studies: See below. Radiographic imaging was reviewed by myself Consultation(s): I discussed this case with Solange who [facility] Past Med/Surg History Problem List (Updated 09/16/23 @ 16:10 by Jeremy Rocha DO) Carotid arterial disease (Acute) Stroke-like symptoms (Acute) Depression with anxiety Prediabetes Ataxia (Acute) Vertigo (Acute) Hypothyroidism (Chronic) Medical History (Updated 09/16/23 @ 16:10 by Jeremy Rocha DO) Diverticulosis of colon Atypical migraine Pinched nerve lower back, takes meloxicam prn History of depression controlled with med History of COVID-19 (~2019) admitted to hospital Hx pulmonary embolism (~2019) had COVID, admitted to [facility], blood thinners Surgical History H/O abdominoplasty H/O colonoscopy Hx of cataract removal with insertion of prosthetic lens H/O arthroscopic knee surgery Hx of tooth extraction (~2021) with implants History of bilateral carpal tunnel release Family History (Updated 09/16/23 @ 10:59 by Chelsea Mendes PA-C) Other Heart disease Social History Smoking Status: Former smoker Tobacco Type: Cigarettes Cigarettes Per Day: socially; Second Hand Exposure: No; Do You Dip or Chew Tobacco: No; Tobacco Cessation Education Requested by Patient: No Hx Alcohol Use: Yes Alcohol type: beer Hx Substance Use: No Preferred Language: Irish Communication Ability: Effective Neuropsychologist Required: No Beliefs That Will Affect Care: None Current Living Situation: Alone Other Information That Helps Us Care for You: No Feels Safe at Home: Yes Safety Concerns: Feels Safe At This Time Assistive Devices: None Allergies Allergies Allergy/AdvReac Type Severity Reaction Status Date / Time prednisone Allergy Intermediate RASH Verified 06/04/23 06:13 Home Meds Home Medications Medication Instructions Recorded Confirmed escitalopram oxalate 5 mg tablet 5 mg PO QAM 09/04/19 09/16/23 levothyroxine 112 mcg tablet 112 mcg PO QAM 09/04/19 09/16/23 zolpidem 10 mg tablet 5 mg PO HS PRN Sleep 09/04/19 09/16/23 meloxicam 15 mg tablet 15 mg PO QAM PRN Pain 09/16/23 09/16/23 Results & Data (ED) Vital Signs Vital Signs - 24 hr 09/16/23 09:06 09/16/23 09:23 Temperature 37.0 C Temperature Source Oral Pulse Rate 78 76 Respiratory Rate 16 Blood Pressure 150/93 H Blood Pressure Mean 112 Pulse Oximetry 95 Oxygen Delivery Method Room Air Sepsis Recent Fever Within 48 Hours No Sepsis New/Unexplained Change in Mental Status N/A Sepsis Action Taken by Nursing No Action Required Home Medications Current Medication List: was personally reviewed by me Laboratory Data Attestation: I reviewed the patient's lab results. 09/16/23 09:15 09/16/23 09:15 Lab Results 09/16/23 09/16/23 Range/Units 09:15 09:22 WBC 5.61 (4.8-10.8) K/ul RBC 4.37 (4.20-5.40) M/uL Hgb 12.7 (12.0-16.0) g/dl POC Hgb 12.9 (12.0-16.0) g/dl Hct 40.3 (37.0-47.0) % POC Hct 38 (37-47) % MCV 92.2 (80.0-100.0) fL MCH 29.1 (25.0-34.0) pg MCHC 31.5 L (32.0-36.0) g/dL RDW Std Deviation 46.1 (36.4-46.3) fL RDW Coeff of Mis 13.5 (11.5-14.5) % Plt Count 269 (130-400) K/uL MPV 9.9 (9.4-12.4) fL Immature Gran % (Auto) 0.4 % Neut % (Auto) 57.3 % Lymph % (Auto) 27.3 % Ashley % (Auto) 9.6 % Eos % (Auto) 4.3 % Baso % (Auto) 1.1 % Neut # (Auto) 3.22 (1.40-6.50) K/uL Lymph # (Auto) 1.53 (1.20-3.40) K/uL Ashley # (Auto) 0.54 (0.11-0.59) K/uL Eos # (Auto) 0.24 (0.00-0.50) K/uL Baso # (Auto) 0.06 (0.00-0.20) K/uL Immature Gran # (Auto) 0.02 (0.01-0.20) K/uL PT 10.5 (9.0-12.0) Seconds INR 1.0 (0.9-1.1) APTT 23 (21-31) Seconds PTT Ratio 0.9 POC Sodium 140 (135-144) mmol/L Sodium 139 (136-145) mmol/L POC Potassium 4.2 (3.3-5.0) mmol/L Potassium 4.3 (3.5-5.1) mmol/L POC Chloride 107 (101-112) mmol/L Chloride 108 H (98-107) mmol/L Carbon Dioxide 25 (21-32) mmol/L POC Total CO2 23 L (24-31) mmol/L Anion Gap 6 (3-11) POC Anion Gap 16.0 (16-25) mmol/L POC BUN 17 (7-18) mg/dl BUN 18 (6-23) mg/dl Creatinine 0.82 (0.6-1.2) mg/dl POC Creatinine 0.8 (0.6-1.3) mg/dl Est Cr Clr Drug Dosing 62.9 ml/min Est GFR ( Amer) 84.0 ml/min Est GFR (Non-Af Amer) 72.5 ml/min BUN/Creatinine Ratio 22.0 H (10-20) Glucose 98 (70-99(Fasting)) mg/dl POC Glucose (other) 102 H (70-99) mg/dl Calcium 9.1 (8.6-10.3) mg/dl POC Ioniz Calcium Nicole 1.12 (1.12-1.32) mmol/l Magnesium 1.9 (1.7-2.4) mg/dl Total Bilirubin 0.4 (0.2-1.0) mg/dl AST 14 (13-39) U/L ALT 13 (7-52) U/L Alkaline Phosphatase 58 (34-104) U/L Troponin I High Sens 3.2 (0-14) pg/ml Total Protein 6.5 (6.0-8.3) gm/dl Albumin 4.0 (3.4-5.0) gm/dl Globulin 2.5 (2.5-4.0) gm/dl Albumin/Globulin Ratio 1.6 (0.9-2) Administered Medications Discontinued Medications Ioversol (Optiray 320 125ml) 112 ml IV ONCE ONE Stop: 09/16/23 09:51 Last Admin: 09/16/23 09:50 Dose: 112 ml Documented By: EZE Lorazepam (Lorazepam 1 Mg Tab) 1 mg PO NOW ONE Stop: 09/16/23 11:44 Last Admin: 09/16/23 12:07 Dose: 1 mg Documented By: AZAEL Imaging Data Attestation: I personally reviewed and interpreted this imaging study as follows: My Impression: 1 view chest x-ray was obtained in the emergency department. My interpretation is no free air or definite infiltrate, final report below. CT of the brain was obtained in the emergency department. My interpretation is no intracranial hemorrhage or mass effect, final report below. Radiologist's Impression: Chest X-Ray 09/16/23 09:21 XR chest 1V portable CLINICAL HISTORY: neuro deficit, acute stroke suspected TECHNIQUE: Single frontal radiograph of the chest was obtained. Comparison: Comparison is made to chest radiograph 03/01/2020 FINDINGS: No lines and tubes are seen. The cardiomediastinal silhouette is normal. The lungs are clear. No evidence of pleural effusion or pneumothorax. IMPRESSION: No acute chest disease. ACT 112: Negative or not required by law. Electronically signed by: Myke Arredondo M.D. 09/16/2023 9:[address] 09/16/23 09:21 CT head/brain wo con CLINICAL HISTORY: neuro deficit, acute stroke suspected Technique: Contiguous axial CT images of the head were acquired from the base of the skull to the vertex without intravenous contrast administration. Images were viewed in brain, subdural and bone windows. Automated dose lowering techniques and/or adjustment according to patient size were utilized for this exam. Comparison: None available at the time of this dictation. Findings: The ventricles, basal cisterns, and cerebral sulci are normal. There is no acute intracranial hemorrhage or evidence of acute territorial infarction. Neither mass effect, shift of the midline structures, nor abnormal extra-axial fluid collections are shown. Imaged portions of the paranasal sinuses and mastoid air cells are clear. The orbits appear normal. There are no acute fractures of the calvaria or scalp swelling. Impression: No acute intracranial hemorrhage, no evidence of acute territorial infarction or other acute intracranial disease process. ACT 112: Negative or not required by law. Electronically signed by: Myke Arredondo M.D. 09/16/2023 10:03 AM Head CTA 09/16/23 09:21 CTA ANGIOGRAPHY OF THE HEAD CLINICAL HISTORY: neuro deficit, acute stroke suspected COMPARISON STUDY: MRA of the head June 10, 2015. TECHNIQUE: Helical axial images of the head were obtained following uneventful intravenous administration of 112 cc of Optiray. Sagittal and coronal reconstructions were viewed as well as maximal intensity projections on an independent 3-D workstation. Automated exposure control was utilized for the study. A dose lowering technique was utilized adhering to the principles of ALARA. FINDINGS: No acute intracranial hemorrhage is identified. Ventricular system is normal. Basal cisterns are patent. There are no extra-axial collections. There is moderate atherosclerotic plaque within bilateral cavernous carotids without stenosis. No vessel occlusion is a identified. The posterior circulation is intact. No intracranial aneurysm or dissection. IMPRESSION: No large vessel occlusion. No intracranial aneurysm. ACT 112: Negative or not required by law. Electronically signed by: Edson Palumbo M.D. 09/16/2023 10:23 AM Neck CTA 09/16/23 09:21 CT ANGIOGRAPHY OF THE NECK WITH CONTRAST CLINICAL HISTORY: neuro deficit, acute stroke suspected COMPARISON STUDY: MRA of the neck June 10, 2015. Technique: CT angiography of the carotid and vertebral arteries was obtained using Optiray and 3D reconstruction on an independent workstation. NASCET criteria was utilized. Automated exposure control was utilized for the study. A dose lowering technique was utilized adhering to the principles of ALARA. CT DOSE: 1047.29 mGy.cm Findings: Visualized portions of the lung apices are unremarkable. There are no cervical spine fracture. There is no cervical lymphadenopathy. There is moderate atherosclerotic plaque within the proximal bilateral internal carotid arteries without significant stenosis. The origin of the left vertebral artery is suboptimally assessed due to artifact. No definite stenoses within the vertebral arteries are present. There is no dissection or aneurysm within the neck. IMPRESSION: 1. Moderate atherosclerotic plaque within the proximal bilateral internal carotid arteries without significant stenosis. 2. No dissection or aneurysm within the neck. 3. Patent bilateral vertebral arteries. Suboptimal evaluation of the left vertebral artery origin. ACT 112: Negative or not required by law. Electronically signed by: Edson Palumbo M.D. 09/16/2023 10:21 AM Discharge Plan Visit Data Chief Complaint: Vertigo Stated Complaint: VERTIGO ED Provider: Jeremy Rocha Discharge Problem: Vertigo, Ataxia, Stroke-like symptoms, Carotid arterial disease Patient Disposition: Admitted As Inpatient Discharge Instructions Interventions: ED Discharge Assessment Last Done: 09/16/23 13:45 Discharge Problem: Carotid arterial disease Qualifiers: Carotid artery disease type: unspecified Laterality: unspecified laterality Q ualified Code(s): I77.9 - Disorder of arteries and arterioles, unspecified
[2023-09-16 09:34] LABS: iSTAT Creatinine 0.8 mg/dl (0.6-1.3); iSTAT Hemoglobin 12.9 g/dl (12.0-16.0); iSTAT Ionized Calcium 1.12 mmol/l (1.12-1.32); iSTAT Potassium 4.2 mmol/L (3.3-5.0)
[2023-09-16 09:36] LABS: Basophils # (auto) 0.06 K/uL (0.00-0.20); Basophils % (auto) 1.1 %; Eosinophils # (auto) 0.24 K/uL (0.00-0.50); Eosinophils % (auto) 4.3 %; Hematocrit (blood only) 40.3 % (37.0-47.0); Hemoglobin 12.7 g/dl (12.0-16.0); Immature Granulocytes # (auto) 0.02 K/uL (0.01-0.20); Immature Granulocytes % (auto) 0.4 %; Lymphocytes # (auto) 1.53 K/uL (1.20-3.40); Lymphocytes % (auto) 27.3 %; Mean Corpuscular Hemoglobin 29.1 pg (25.0-34.0); Mean Corpuscular Hgb Conc 31.5 g/dL (32.0-36.0); Mean Corpuscular Volume 92.2 fL (80.0-100.0); Mean Platelet Volume 9.9 fL (9.4-12.4); Monocytes # (auto) 0.54 K/uL (0.11-0.59); Monocytes % (auto) 9.6 %; Neutrophils # (auto) 3.22 K/uL (1.40-6.50); Neutrophils % (auto) 57.3 %; Platelet Count 269 K/uL (130-400); RDW Coefficient of Variation 13.5 % (11.5-14.5); RDW Standard Deviation 46.1 fL (36.4-46.3); Red Blood Count 4.37 M/uL (4.20-5.40); White Blood Count 5.61 K/ul (4.8-10.8)
--- NOTE | 2023-09-16 09:48 | XRay Report ---
XR chest 1V portable CLINICAL HISTORY: neuro deficit, acute stroke suspected TECHNIQUE: Single frontal radiograph of the chest was obtained. Comparison: Comparison is made to chest radiograph 03/01/2020 FINDINGS: No lines and tubes are seen. The cardiomediastinal silhouette is normal. The lungs are clear. No evid ence of pleural effusion or pneumothorax. IMPRESSION: No acute chest disease. ACT 112: Negative or not required by law. Electronically signed by: Myke Arredondo M.D. 09/16/2023 9:47 AM
[2023-09-16] MEDS: OPTIRAY 320 125ml IV ONE (09:50)
[2023-09-16 09:51] LABS: Albumin Globulin Ratio 1.6 (0.9-2); Bilirubin,Total 0.4 mg/dl (0.2-1.0); Calcium 9.1 mg/dl (8.6-10.3); Creatinine Clr Calc Pharmacy 62.9 ml/min; Est GFR (Non-African American) 72.5 ml/min; Globulin 2.5 gm/dl (2.5-4.0); Magnesium 1.9 mg/dl (1.7-2.4); Potassium 4.3 mmol/L (3.5-5.1); Total Protein 6.5 gm/dl (6.0-8.3)
[2023-09-16 09:58] LABS: Troponin I High Sensitivity 3.2 pg/ml (0-14)
[2023-09-16 10:02] LABS: Partial Thromboplastin Ratio 0.9; Partial Thromboplastin Time 23 Seconds (21-31); Prothrombin Time 10.5 Seconds (9.0-12.0)
--- NOTE | 2023-09-16 10:05 | CT Scan Report ---
CT head/brain wo con CLINICAL HISTORY: neuro deficit, acute stroke suspected Technique: Contiguous axial CT images of the head were acquired from the base of the skull to the rajesh tani without intravenous contrast administration. Images were viewed in brain, subdural and bone [facility]. Automated dose lowering techniques and/or adjustment according to patient size were utilized for this exam. Comparison: None available at the time of this dictation. Findings: The ventricles, basal cisterns, and cerebral sulci are normal. There is no acute intracranial hemorrh age or evidence of acute territorial infarction. Neither mass effect, shift of the midline structures , nor abnormal extra-axial fluid collections are shown. Imaged portions of the paranasal sinuses and mastoid air cells are clear. The orbits appear normal. There are no acute fractures of the calvaria or scalp swelling. Impression: No acute intracranial hemorrhage, no evidence of acute territorial infarction or other acute intracra nial disease process. ACT 112: Negative or not required by law. Electronically signed by: Myke Arredondo M.D. 09/16/2023 10:03 AM
--- NOTE | 2023-09-16 10:22 | CT Scan Report ---
CT ANGIOGRAPHY OF THE NECK WITH CONTRAST CLINICAL HISTORY: neuro deficit, acute stroke suspected COMPARISON STUDY: MRA of the neck June 10, 2015. Technique: CT angiography of the carotid and vertebral arteries was obtained using Optiray and 3D rec onstruction on an independent workstation. NASCET criteria was utilized. Automated exposure control was utilized for the study. A dose lowering technique was utilized adhering to the principles of ALA RA. CT DOSE: 1047.29 mGy.cm Findings: Visualized portions of the lung apices are unremarkable. There are no cervical spine fractu re. There is no cervical lymphadenopathy. There is moderate atherosclerotic plaque within the proxima l bilateral internal carotid arteries without significant stenosis. The origin of the left vertebral artery is suboptimally assessed due to artifact. No definite stenoses within the vertebral arteries a re present. There is no dissection or aneurysm within the neck. IMPRESSION: 1. Moderate atherosclerotic plaque within the proximal bilateral internal carotid arteries without si gnificant stenosis. 2. No dissection or aneurysm within the neck. 3. Patent bilateral vertebral arteries. Suboptimal evaluation of the left vertebral artery origin. ACT 112: Negative or not required by law. Electronically signed by: Edson Palumbo M.D. 09/16/2023 10:21 AM
--- NOTE | 2023-09-16 10:25 | CT Scan Report ---
CTA ANGIOGRAPHY OF THE HEAD CLINICAL HISTORY: neuro deficit, acute stroke suspected COMPARISON STUDY: MRA of the head June 10, 2015. TECHNIQUE: Helical axial images of the head were obtained following uneventful intravenous administr ation of 112 cc of Optiray. Sagittal and coronal reconstructions were viewed as well as maximal inten sity projections on an independent 3-D workstation. Automated exposure control was utilized for the study. A dose lowering technique was utilized adhering to the principles of ALARA. FINDINGS: No acute intracranial hemorrhage is identified. Ventricular system is normal. Basal cistern s are patent. There are no extra-axial collections. There is moderate atherosclerotic plaque within b ilateral cavernous carotids without stenosis. No vessel occlusion is a identified. The posterior circ ulation is intact. No intracranial aneurysm or dissection. IMPRESSION: No large vessel occlusion. No intracranial aneurysm. ACT 112: Negative or not required by law. Electronically signed by: Edson Palumbo M.D. 09/16/2023 10:23 AM
--- NOTE | 2023-09-16 10:59 | History & Physical Report ---
Date of Service September 16, 2023 Assessment & Plan (1) Stroke-like symptoms: Plan: This is a 68 y/o female with history of PAF, no longer on AC, hx PE associated with COVID-19 infection, prediabetes, hypothyroidism, and other history as outlined who presents to the ED today with stroke-like symptoms. She had a brief episode of symptoms three days that resolved within half an hour. She woke up with neurologic symptoms at 4 am today, which have persisted since then. Initial work-up in the ED negative for acute infarct, but pt has continued with symptoms, specifically a sense of dysequilibrium, vertigo, and ataxia. She also notes a new left hand tremor. She was referred for admission for further work-up and management. - Admit to PCU - Check MRI of the brain - Update ECHO - Discussed with patient the importance of restarting anticoagulation. Assuming that event on Saturday was a TIA, pt's current [id number] score is four. She is agreeable to anticoagulation so will start Eliquis - PT evaluation for possible Leonardo, trial of meclizine. OT evaluation - Passed bedside swallow evaluation so will order diet, no need for speech evaluation at this time - Neuro checks per protocol - Labs in the AM - CBC, BMP, TSH, A1c, lipids, homocysteine - Consult neurology for additional recommendations (2) Vertigo: Plan: PT eval for Janetley Trial of meclizine for symptoms (3) Hypothyroidism: Plan: Chronic, stable Continue outpatient levothyroxine Check TSH with reflex T4 in the AM (4) PAF (paroxysmal atrial fibrillation): Plan: Not current in atrial fib, not on rate or rhythm control - consider outpatient f/u with cardiology Anticoagulation as discussed in #1 (5) Prediabetes: Plan: Not on medication Check A1c in the AM Plan Pt seen and reviewed with collaborating physician, Dr. Betancourt. Plan of care discussed and as outlined above. Code status: full code DVT Prophylaxis: starting on Eliquis Admit to PCU for additional evaluation and management Jonathan Mendes PA-C History of Present Illness Chief Complaint: stroke-like symptoms Primary Care Provider: Emery Plummer MD This is a 68 y/o female with history of PAF, no longer on AC, hx PE associated with COVID-19 infection, prediabetes, hypothyroidism, and other history as outlined who presents to the ED today with stroke-like symptoms. 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 She sat down to rest and was evaluated by a medic who was there. These symptoms resolved within about half an hour so she did not come to the ED for additional evaluation. No sense of dysequilibrium at that time. Over the weekend, she reports working long days at her business and felt fine without recurrence of the symptoms. Today woke up around 4 am to go to the bathroom and has trouble walking due to sense of dysequilibrium, balance off which caused legs not to function. Describes sensation of her head spinning, especially when she tries to walk or turns her head to the side. She denies visual changes, numbness or tingling. No overt weakness in the arms or legs. Does note a new left hand tremor today. She is right-hand dominant. She has a history of migraines with associated difficulty speaking - her one was 2-3 weeks ago. She denies LEVIN at present and current symptoms feel different from prior migraines. She denies dysphagia, N/V. Currently feels hungry and asking to eat. She was diagnosed with paroxysmal atrial fibrillation when she had COVID and was placed on Xarelto but reports this was discontinued for unknown reasons. Currently, she denies chest pain, palpitations, syncope, near-syncope. Allergies Allergy/AdvReac Type Severity Reaction Status Date / Time prednisone Allergy Intermediate RASH Verified 06/04/23 06:13 Home Medications Medication Instructions Recorded Confirmed Type escitalopram oxalate 5 mg tablet 5 mg PO QAM 09/04/19 09/16/23 History levothyroxine 112 mcg tablet 112 mcg PO QAM 09/04/19 09/16/23 History zolpidem 10 mg tablet 5 mg PO HS PRN Sleep 09/04/19 09/16/23 History meloxicam 15 mg tablet 15 mg PO QAM PRN Pain 09/16/23 09/16/23 History Past Med/Surg History Problem List (Updated 09/16/23 @ 19:18 by Chelsea Mendes PA-C) PAF (paroxysmal atrial fibrillation) Carotid arterial disease (Acute) Stroke-like symptoms (Acute) Depression with anxiety Prediabetes Ataxia (Acute) Vertigo (Acute) Hypothyroidism (Chronic) Medical History (Updated 09/16/23 @ 19:18 by Chelsea Mendes PA-C) Diverticulosis of colon Atypical migraine Pinched nerve lower back, takes meloxicam prn History of depression controlled with med History of COVID-19 (~2019) admitted to hospital Hx pulmonary embolism (~2019) had COVID, admitted to [facility], blood thinners Surgical History H/O abdominoplasty H/O colonoscopy Hx of cataract removal with insertion of prosthetic lens H/O arthroscopic knee surgery Hx of tooth extraction (~2021) with implants History of bilateral carpal tunnel release Family History (Updated 09/16/23 @ 10:59 by Chelsea Mendes PA-C) Other Heart disease Social History Smoking Status: Former smoker Tobacco Type: Cigarettes Cigarettes Per Day: socially; Second Hand Exposure: No; Do You Dip or Chew Tobacco: No; Tobacco Cessation Education Requested by Patient: No Hx Alcohol Use: Yes Alcohol type: beer Hx Substance Use: No Preferred Language: Polish Communication Ability: Effective 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 Beliefs That Will Affect Care: None Current Living Situation: Alone Other Information That Helps Us Care for You: No Feels Safe at Home: Yes Safety Concerns: Feels Safe At This Time Assistive Devices: None Review of Systems Review of Systems: All systems reviewed & are unremarkable except as noted in Subjective Physical Exam Physical Exam: General: awake, alert, NAD HEENT: PERRL, EOMI though mild difficulty tracking to the extreme periphery on the left, no nystagmus, tongue midline, uvula rises symmetrically with phonation, facial expressions symmetric Neck: trachea midline Heart: RRR Lungs: CTA bilaterally without W/R/R Abdomen: soft, NT, +BS Extremities: distal pulses intact and equal, no pedal edema. Neurologic: +left hand tremor with intention, no tremor noted right hand; left emergency care attendant 4/5, right emergency care attendant 5/5, otherwise strength testing equal bilaterally; Ox3, no confusion or dysarthria, no aphasia Skin: warm, dry, no jaundice Results & Data Results & Data Vital Signs (Past 12 Hours) Vital Signs Temp Pulse Resp BP Pulse Ox O2 Del Method 09/16/23 09:23 76 09/16/23 09:06 37.0 C 78 16 150/93 H 95 Room Air Laboratory Results Lab Results 09/16/23 09/16/23 Range/Units 09:15 09:22 WBC 5.61 (4.8-10.8) K/ul RBC 4.37 (4.20-5.40) M/uL Hgb 12.7 (12.0-16.0) g/dl POC Hgb 12.9 (12.0-16.0) g/dl Hct 40.3 (37.0-47.0) % POC Hct 38 (37-47) % MCV 92.2 (80.0-100.0) fL MCH 29.1 (25.0-34.0) pg MCHC 31.5 L (32.0-36.0) g/dL RDW Std Deviation 46.1 (36.4-46.3) fL RDW Coeff of Mis 13.5 (11.5-14.5) % Plt Count 269 (130-400) K/uL MPV 9.9 (9.4-12.4) fL Immature Gran % (Auto) 0.4 % Neut % (Auto) 57.3 % Lymph % (Auto) 27.3 % [place] % (Auto) 9.6 % Eos % (Auto) 4.3 % Baso % (Auto) 1.1 % Neut # (Auto) 3.22 (1.40-6.50) K/uL Lymph # (Auto) 1.53 (1.20-3.40) K/uL [place] # (Auto) 0.54 (0.11-0.59) K/uL Eos # (Auto) 0.24 (0.00-0.50) K/uL Baso # (Auto) 0.06 (0.00-0.20) K/uL Immature Gran # (Auto) 0.02 (0.01-0.20) K/uL PT 10.5 (9.0-12.0) Seconds INR 1.0 (0.9-1.1) APTT 23 (21-31) Seconds PTT Ratio 0.9 POC Sodium 140 (135-144) mmol/L Sodium 139 (136-145) mmol/L POC Potassium 4.2 (3.3-5.0) mmol/L Potassium 4.3 (3.5-5.1) mmol/L POC Chloride 107 (101-112) mmol/L Chloride 108 H (98-107) mmol/L Carbon Dioxide 25 (21-32) mmol/L POC Total CO2 23 L (24-31) mmol/L Anion Gap 6 (3-11) POC Anion Gap 16.0 (16-25) mmol/L POC BUN 17 (7-18) mg/dl BUN 18 (6-23) mg/dl Creatinine 0.82 (0.6-1.2) mg/dl POC Creatinine 0.8 (0.6-1.3) mg/dl Est Cr Clr Drug Dosing 62.9 ml/min Est GFR ( Amer) 84.0 ml/min Est GFR (Non-Af Amer) 72.5 ml/min BUN/Creatinine Ratio 22.0 H (10-20) Glucose 98 (70-99(Fasting)) mg/dl POC Glucose (other) 102 H (70-99) mg/dl Calcium 9.1 (8.6-10.3) mg/dl POC Ioniz Calcium Nicole 1.12 (1.12-1.32) mmol/l Magnesium 1.9 (1.7-2.4) mg/dl Total Bilirubin 0.4 (0.2-1.0) mg/dl AST 14 (13-39) U/L ALT 13 (7-52) U/L Alkaline Phosphatase 58 (34-104) U/L Troponin I High Sens 3.2 (0-14) pg/ml Total Protein 6.5 (6.0-8.3) gm/dl Albumin 4.0 (3.4-5.0) gm/dl Globulin 2.5 (2.5-4.0) gm/dl Albumin/Globulin Ratio 1.6 (0.9-2) Diagnostic Findings Chest X-Ray 09/16/23 09:21 XR chest 1V portable CLINICAL HISTORY: neuro deficit, acute stroke suspected TECHNIQUE: Single frontal radiograph of the chest was obtained. Comparison: Comparison is made to chest radiograph 03/01/2020 FINDINGS: No lines and tubes are seen. The cardiomediastinal silhouette is normal. The lungs are clear. No evidence of pleural effusion or pneumothorax. IMPRESSION: No acute chest disease. ACT 112: Negative or not required by law. Electronically signed by: Myke Arredondo M.D. 09/16/2023 9:[address] 09/16/23 09:21 CT head/brain wo con CLINICAL HISTORY: neuro deficit, acute stroke suspected Technique: Contiguous axial CT images of the head were acquired from the base of the skull to the vertex without intravenous contrast administration. Images were viewed in brain, subdural and bone windows. Automated dose lowering techniques and/or adjustment according to patient size were utilized for this exam. Comparison: None available at the time of this dictation. Findings: The ventricles, basal cisterns, and cerebral sulci are normal. There is no acute intracranial hemorrhage or evidence of acute territorial infarction. Neither mass effect, shift of the midline structures, nor abnormal extra-axial fluid collections are shown. Imaged portions of the paranasal sinuses and mastoid air cells are clear. The orbits appear normal. There are no acute fractures of the calvaria or scalp swelling. Impression: No acute intracranial hemorrhage, no evidence of acute territorial infarction or other acute intracranial disease process. ACT 112: Negative or not required by law. Electronically signed by: Myke Arredondo M.D. 09/16/2023 10:03 AM Head CTA 09/16/23 09:21 CTA ANGIOGRAPHY OF THE HEAD CLINICAL HISTORY: neuro deficit, acute stroke suspected COMPARISON STUDY: MRA of the head June 10, 2015. TECHNIQUE: Helical axial images of the head were obtained following uneventful intravenous administration of 112 cc of Optiray. Sagittal and coronal reconstructions were viewed as well as maximal intensity projections on an independent 3-D workstation. Automated exposure control was utilized for the study. A dose lowering technique was utilized adhering to the principles of ALARA. FINDINGS: No acute intracranial hemorrhage is identified. Ventricular system is normal. Basal cisterns are patent. There are no extra-axial collections. There is moderate atherosclerotic plaque within bilateral cavernous carotids without stenosis. No vessel occlusion is a identified. The posterior circulation is intact. No intracranial aneurysm or dissection. IMPRESSION: No large vessel occlusion. No intracranial aneurysm. ACT 112: Negative or not required by law. Electronically signed by: Edson Palumbo M.D. 09/16/2023 10:23 AM Neck CTA 09/16/23 09:21 CT ANGIOGRAPHY OF THE NECK WITH CONTRAST CLINICAL HISTORY: neuro deficit, acute stroke suspected COMPARISON STUDY: MRA of the neck June 10, 2015. Technique: CT angiography of the carotid and vertebral arteries was obtained using Optiray and 3D reconstruction on an independent workstation. NASCET criteria was utilized. Automated exposure control was utilized for the study. A dose lowering technique was utilized adhering to the principles of ALARA. CT DOSE: 1047.29 mGy.cm Findings: Visualized portions of the lung apices are unremarkable. There are no cervical spine fracture. There is no cervical lymphadenopathy. There is moderate atherosclerotic plaque within the proximal bilateral internal carotid arteries without significant stenosis. The origin of the left vertebral artery is suboptimally assessed due to artifact. No definite stenoses within the vertebral arteries are present. There is no dissection or aneurysm within the neck. IMPRESSION: 1. Moderate atherosclerotic plaque within the proximal bilateral internal carotid arteries without significant stenosis. 2. No dissection or aneurysm within the neck. 3. Patent bilateral vertebral arteries. Suboptimal evaluation of the left vertebral artery origin. ACT 112: Negative or not required by law. Electronically signed by: Edson Palumbo M.D. 09/16/2023 10:21 AM Medications Administered Discontinued Medications Ioversol (Optiray 320 125ml) 112 ml IV ONCE ONE Stop: 09/16/23 09:51 Last Admin: 09/16/23 09:50 Dose: 112 ml Documented By: EZE Supervising Physician Co-Signing Physician Notes Attending Addendum: Case reviewed with the advanced practitioner. I have personally performed a history and physical examination on the patient. I have reviewed the advanced practitioner's documentation on the date of service referenced in note, and I agree with, and take responsibility for the plan of care. please refer to her notes for full details patient seen and examined, records reviewed by myself as well ASSESSMENT AND PLAN Left lower leg weakness, loss of coordination Possible TIA History of atrial fibrillation Brain MRI: No acute process, old left frontal lobe infarct CT angiogram head and neck: 1. Moderate atherosclerotic plaque within the proximal bilateral internal carotid arteries without significant stenosis. 2. No dissection or aneurysm within the neck. 3. Patent bilateral vertebral arteries. Suboptimal evaluation of the left vertebral artery origin. Echocardiogram: Mild to moderate mobile atherotic plaque in the aortic arch Patient was on metoprolol and Xarelto in the past for acute PE and A-fib in the setting of COVID-19, both medications discontinued for unknown reasons Resume anticoagulation, start Eliquis 5 mg p.o. twice daily Start Lipitor 40 mg p.o. daily Consult neurology Consult cardiology for mobile atherosclerotic plaque in the aortic arch Dizziness, likely secondary to acute vertigo Brain MRI: No acute CVA As needed meclizine PT evaluation for Yuri maneuver other diagnoses and plan of care as per advanced practitioner's notes Alexandre Betancourt MD (3) Hypothyroidism Hypothyroidism type: acquired Qualified Code(s): E03.9 - Hypothyroidism, unspecified
--- OUTSIDE RECORDS SUMMARY | 2023-09-16 11:03 | External Medical Summary | Summary of Care ---
Author Name Unknown Organization [facility] Address [address] [facility] [address] Phone [phone] Care Team Providers Care Mail Processing Machine Operator Name Role Phone Roberto rPuett MD Primary Care Provider [phone] Reason for Visit * Reason Onset Date Comments Medication Refill 07/31/2023 Medication Pre-auth 07/31/2023 Encounter Details Date Type Department Care Team (Late st Contact Info) Description 07/31/2023 Telephone Family Practice [facility] [address] [place] [address] Roberto Pruett MD [address] [place] [address] Medication Refill; Medication Pre-auth Allergies No known active allergiesdocumented as of this encounter (statuses as of 09/12/2023) Medications Medication Sig Dispensed Refills Start Date End Date Status Ventolin HFA 108 (90 Base) MCG/ACT Inhalation Aerosol SolutionIndications: Acute non-recurrent sinusitis, unspecified location Inhale by mouth 2 Puffs every 4 hours as needed for Wheezing. 8 g 1 11/25/2021 Active Rizatriptan Benzoate 10 MG Oral Tablet (Maxalt)Indications: Atypical migraine Take 1 Tablet by mouth as needed for Migraine. at onset of headache, may repeat every 2 hours up to 2 times. Up to 3 tablets in 24 hours 20 Tablet 3 07/26/2022 Active Ramelteon 8 MG Oral Tablet (Rozerem) Take 1 Tablet by mouth at bedtime. 90 Tablet 3 2023 Active Clobetasol Propionate 0.05 % External Cream (Temovate) Apply topically to affected area 2 times a day. To affected area for up to two weeks. 15 g 1 06/17/2023 Active LORazepam 1 MG Oral Tablet (Ativan)Indications: Spinal stenosis of lumbar region with neurogenic claudication,Lumbar radicular pain Take one tablet by mouth thirty minutes prior to procedure. 1 Tablet 07/24/2023 Active Escitalopram Oxalate 5 MG Oral Tablet (Lexapro)Indications :Depression with anxiety Take 1 Tablet by mouth in the morning. 90 Tablet 2 05/01/2023 4 Discontinue d(Refill) Levothyroxine Sodium 112 MCG Oral Tablet (Levoxyl)Indications :Acquired hypothyroidism take 1 tablet by mouth once daily AT LEAST 30 MINUTES PRIOR TO BREAKFAST OR OTHER MEDS 90 Tablet 2 05/01/2023 4 Discontinue d(Refill) Meloxicam 15 MG Oral Tablet (Mobic)Indications:C hronic right-sided low back pain with right-sided sciatica TAKE ONE TABLET BY MOUTH EVERY MORNING FOR PAIN 30 Tablet 06/18/2023 4 Discontinue d(Refill) traMADol HCl 50 MG Oral Tablet (Ultram)Indications: Nontraumatic complete tear of right rotator cuff,Primary osteoarthritis involving multiple joints Take 1 Tablet by mouth every 6 hours as needed (take 1 tablet by mouth every 6 hours if needed for severe pain). 30 Tablet 06/18/2023 4 Discontinue d(Refill) Zolpidem Tartrate 10 MG Oral Tablet (Ambien)Indications: Chronic insomnia Take 1 Tablet by mouth at bedtime. for sleep. 30 Tablet 06/18/2023 4 Discontinue d(Refill) Zolpidem Tartrate 10 MG Oral Tablet (Ambien)Indications: Chronic insomnia Take 1 Tablet by mouth at bedtime. for sleep. 30 Tablet 08/01/2023 4 Discontinue d(Refill) traMADol HCl 50 MG Oral Tablet (Ultram)Indications: Nontraumatic complete tear of right rotator cuff,Primary osteoarthritis involving multiple joints Take 1 Tablet by mouth every 6 hours as needed (take 1 tablet by mouth every 6 hours if needed for severe pain). 30 Tablet 08/01/2023 4 Discontinue d(Refill) Meloxicam 15 MG Oral Tablet (Mobic)Indications:C hronic right-sided low back pain with right-sided sciatica TAKE ONE TABLET BY MOUTH EVERY MORNING FOR PAIN 30 Tablet 08/01/2023 4 Discontinue d(Refill) documented as of this encounter (statuses as of 09/12/2023) Active Problems Problem Noted Date Diagnosed Date Overweight (BMI 25.0-29.9) 07/26/2022 Acute recurrent frontal sinusitis 07/26/2022 Atypical migraine 11/08/2021 Chronic insomnia 06/18/2021 Prediabetes 03/07/2021 History of atrial fibrillation 03/06/2021 History of pulmonary embolism 07/09/2020 Overview: Bilateral in setting of covid19 and immobility Depression with anxiety 10/24/2018 Acquired hypothyroidism 07/02/2013 documented as of this encounter (statuses as of 09/12/2023) Resolved Problems Problem Noted Date Diagnosed Date Resolved Date Obesity, Class I, BMI 30.0-3 4.9 (see actual BMI) 06/20/2021 05/31/2023 Paroxysmal atrial fibrillation 07/09/2020 03/06/2021 Insomnia 07/02/2013 06/18/2021 Acute sinusitis 07/08/2012 07/02/2013 Anxiety state 12/25/2007 07/02/2013 NONE 05/11/2004 12/25/2007 documented as of this encounter (statuses as of 09/12/2023) Immunizations Name Administration Dates Next Due COVID-19 mRNA, LNP-s, No Pre serve, 2-Dose Series (Moderna) 11/13/2020,10/01/2020 Pneumococcal Conjugate Vacc, 13 Valent (Prevnar) 03/09/2019 Pneumococcal Polysaccharide PPV23 (Pneumovax) 01/04/2020 Season Influenza, Quad, PF, Adjuvanted, 65+ Yrs, IM (FLUAD) 01/04/2020 Seasonal Influenza Virus Vac cine, Unspecified Formulation 03/07/2018,2015,03/12/2012 Seasonal Influenza, Quadriva lent, No Preserve, IM 03/07/2018 Seasonal Influenza, Split, I IV3, With Preserve, Inj 03/12/2012 TDAP (age 10 and older)(Boostrix) 10/25/2019, Varicella Zoster Vaccine (Adult) 09/19/2015 Zoster Vaccine Recombinant (Shingrix) 09/06/2022 documented as of this encounter Social History Tobacco Use Types Packs/Day Years Used Date Smoking Tobacco: Former Cigarettes Q uit: 03/04/1994 Smokeless Tobacco: Never Alcohol Use Standard Drinks/Week Comments Yes 0 (1 standard drink = 0.6 oz pur e alcohol) rare PHQ-2 Answer Date Recorded PHQ Adult Total Score 0 07/15/2020 Hunger Vital Sign Answer Date Recorded Worried About Running Out of Food in the Last Ye ar Never true 04/20/2019 Ran Out of Food in the Last Year Never true 04/20/2019 Sex and Gender Information Value Date Recorded Sex Assigned at Not on file Gender Identity Not on file Sexual Orientation Not on file Job Start Date Occupation Industry Not on file Not on file Not on file documented as of this encounter Miscellaneous Notes * Telephone Encounter - Angle Garcia RP - 08/02/2023 8:43 AM EDT Upon chart review - patient refused to try alternatives that are covered on plan. She prefers to pay out of pocket for the zolpidem. No PA needed at this time. Closing encounter. Thank you, Angle Garcia PharmD Clinical Pharmacist [facility]) 08/02/23 8:44 AM [phone] * Telephone Encounter - Melba Fletcher two needle machine operator - 08/02/2023 8:31 AM EDT Mai calling from [facility]. Needs clinical information sent over for Zolpidem tart 10mg. Please fax information to [phone] or drop in [facility] chat by 4pm today under EOC [id number] Thanks, Melba Fletcher Wort Extractor III [facility]) 08/02/2023,8:31 AM * Telephone Encounter - Roberto Pruett MD - 08/01/2023 3:01 PM EDTSigned Prescriptions: Disp Refills Zolpidem Tartrate 10 MG Oral Tablet (Ambie*30 Tab*0 Sig: Take 1 Tablet by mouth at bedtime. for sleep. Authorizing Provider: ROBERTO PRUETT traMADol HCl 50 MG Oral Tablet (Ultram) 30 Tab*0 Sig: Take 1 Tablet by mouth every 6 hours as needed (take 1 tablet by mouth every 6 hours if needed for severe pain). Author izing Provider: ROBERTO PRUETT Meloxicam 15 MG Oral Tablet (Mobic) 30 Tab*0 Sig: TAKE ONE TABLET BY MOUTH EVERY MORNING FOR PAIN Authorizing Provider: ROBERTO PRUETT * Telephone Encounter - Roberto Ornelas [facility] - 08/01/2023 1:48 PM EDT Pending Prescriptions: Disp Refills Zolpidem Tartrate 10 MG Oral Tablet (Ambie*30 Tab*0 Sig: Take 1 Tablet by mouth at bedtime. for sleep. traMADol HCl 50 MG Oral Tablet (Ultram) 30 Tab*0 Sig: Take 1 Tablet by mouth every 6 hours as needed (take 1 tablet by mouth every 6 hours if needed for severe pain). Meloxicam 15 MG Oral Tablet (Mobic) 30 Tab* 0 Sig: TAKE ONE TABLET BY MOUTH EVERY MORNING FOR PAIN * Telephone Encounter - Roberto Ornelas [facility] - 08/01/2023 1:47 PM EDT I have reviewed the patients controlled substance dispensing history in the Prescription Drug Monitoring Program in compliance with the [facility] regulations before prescribing a controlled substance. PDMP checked on 08/01/2023. Pending Prescriptions: Disp Refills Zolpidem Tartrate 10 MG Oral Tablet (Ambi*30 Tab*0 Sig: Take 1 Tablet by mouth at bedtime. for sleep. traMADol HCl 50 MG Oral Tablet (Ultram) 30 Tab*0 Sig: Take 1 Tablet by mouth every 6 hours as needed (take 1 tablet by mouth every 6 hours if needed for severe pain). Meloxicam 15 MG Oral Tablet (Mobic) 30 Tab*0 Sig: TAKE ONE TABLET BY MOUTH EVERY MORNING FOR PAIN Last Visit: 05/31/2023 (in office), 03/03/2020 (telemedicine) Next Visit: Visit date not found Date medication was last filled: 06/17 06/17 Date medication is due for refill: 07/16 06/23 Pharmacy: [facility] [address] [place] [address] Is this request for a controlled substance? Yes and Urine Drug Screen Not completed Toxicology results: No results found for this or any previous visit. Please approve if appropriate. Thanks, Roberto Ornelas, PharmD Clinical Pharmacist [facility](formerly telepharmacy) [phone] 08/01/2023, 1:47 PM * Telephone Encounter - Rita Todd CPhT - 07/31/2023 10:22 AM EDT Did you pend patient's preferred pharmacy and medication before forwarding?yes Pharmacy: [facility] [address] [place] [address] Pending Prescriptions: Disp Refills Zolpidem Tartrate 10 MG Oral Tablet (Ambi*30 Tab*0 Sig: Take 1 Tablet by mouth at bedtime. for sleep. traMADol HCl 50 MG Oral Tablet (Ultram) 30 Tab*0 Sig: Take 1 Tablet by mouth every 6 hours as needed (take 1 tablet by mouth every 6 hours if needed for severe pain). Meloxicam 15 MG Oral Tablet (Mobic) 30 Tab*0 Sig: TAKE ONE TABLET BY MOUTH EVERY MORNING FOR PAIN Last Visit: 05/31/2023 (in office), 03/03/2020 (telemedicine) Next Visit: Visit date not found If no future appointments scheduled, and last appointment is greater than a year ago, please schedule patient for a follow-up appointment Last date the medication was ordered: 06/18/2023 Is this request for a controlled substance?Yes, What was the last refill date 06/18/2023 w/ and dosage 30 and Urine Drug Screen Not completed Urine Drug Screen:No results found for this or any previous visit. Patient Phone Numbers Labs: Lab Results Component Value Date/Time CREAT 0.9 06/03/2023 11:45 AM CREAT 0.8 03/05/2019 11:02 AM POTASSIUM 3.9 06/03/2023 11:45 AM POTASSIUM 4.8 03/05/2019 11:02 AM TSH 0.83 11/13/2022 04:30 PM TSH 2.46 03/05/2019 11:02 AM LDLCALC 125 11/13/2022 04:30 PM LDLCALC 153 (H) 09/25/2016 10:51 AM ALT 20 03/05/2019 11:02 AM HGBA1C 6.2 (H) 11/13/2022 04:30 PM documented in this encounter Plan of Treatment Upcoming Encounters Date Type Department Care Team (Latest Contact Info) Description 09/26/2023 1:20 PM EDT Hospital Encounter [facility], Operating Room [facility] [address] [place] [phone] Jonathan Ball DO [address] [place] [phone] 09/26/2023 1:20 PM EDT - 09/26/2023 1:45 PM EDT Surgery OR [facility], Operating Room [facility] [address] [place] [phone] Jonathan Ball DO [address] [place] [phone] INJECTION SPINE LUMBAR OR SACRAL 09/30/2023 1:15 PM EDT Imaging Radiology [address] [place] [phone] 10/04/2023 8:20 AM EDT Office Visit Family Practice [address] [place] [address] Ishan Galvin PA-C [address] [place] [address] Scheduled Procedures Name Priority Associated Diagnoses Date/Ti me INJECTION SPINE LUMBAR OR SACRAL Spinal stenosis of lumbar region with neurogenic claudication 09/26/2023 1:20 PM EDT COLONOSCOPY FLEXIBLE PROXIMAL DIAGNOSTIC Recall Special screening for malignant neoplasms, colon Health Maintenance Due Date Last Done Comments DXA Scan 1953 Cologuard 1998 Sigmoidoscopy 1998 Colonoscopy 12/05/2020 12/05/2010, 05/18/2008 Depression Monitoring 07/15/2021 07/15/2020 Zoster Vaccines (3 of 3) 11/01/2022 09/06/2022, 09/01 COVID-19 Vaccine (3 - 2022- season) 2022 11/13/2020, 10/01/2020 Colorectal Cancer Screening 03/09/2023 Fecal Occult Blood Test 03/09/2023 03/09/19, 03/09/2022, 11/23/2020, Additional history exists Mammogram 09/25/2023 09/24/2022, 09/02, 07/15/2020, Additional history exists Influenza Vaccine (FLU shot) (#1) 2023 01/04/2020, 03/07/2018, 03/07/2018, Additional history exists HbA1c 11/14/2023 11/13/2022, 03/06/2021 TSH 11/14/2023 11/13/2022, 10/0 06/2021, 03/06/2021, Additional history exists Lipid Panel 11/14/2027 11/13/2022, 07/2 07/2016, 09/19/2015, Additional history exists DTaP,Tdap,and Td Vaccines (3 - Td or Tdap) 10/24/2029 10/25/2019, 07/14/2012 Pneumococcal Vaccine: 65+ Years Completed 01/04/2020, 03/09/2019 HPV (Gardasil) Vaccine Aged Out No lo nger eligible based on patient's age to complete this topic Hepatitis B Vaccine Aged Out No longe r eligible based on patient's age to complete this topic MENINGOCOCCAL (MENACTRA/MENVEO) Aged Out No longer eligible based on patient's age to complete this topic documented as of this encounter Medical Devices Not on filedocumented as of this encounter Visit Diagnoses Diagnosis Chronic insomnia Insomnia, unspecified Nontraumatic complete tear of right rotator cuff Primary osteoarthritis involving multiple joints Chronic right-sided low back pain with right-sided sciatica Spinal stenosis of lumbar region with neurogenic claudication Spinal stenosis, lumbar region, with neurogenic claudication documented in this encounter Care Teams Mail Processing Machine Operator Relationship Specialty Start Date End Date Roberto Pruett MD [address] [place] [address] PCP - General Family Medicine 07/14/20 documented as of this encounter
--- OUTSIDE RECORDS SUMMARY | 2023-09-16 11:04 | External Medical Summary | Summary of Care ---
Author Name Unknown Organization [facility] Address [address] [place] [address] Phone [phone] Care Team Providers Care Obstetrics Nurse Practitioner Name Role Phone Emery Plummer MD Primary Care Provider [phone] Reason for Visit * Reason Comments eRx-Medication Refill Encounter Details Date Type Department Care Team (Late st Contact Info) Description 09/11/2023 Refill [facility] Practice [facility] [address] [facility] [address] [place] [address] Emery Plummer MD [address] [address] Chronic right-sided low back pain with right-sided sciatica Allergies No known active allergiesdocumented as of this encounter (statuses as of 09/11/2023) Medications Medication Sig Dispensed Refills Start Date [...] prior to procedure. 1 Tablet 07/24/2023 Active Zolpidem Tartrate 10 MG Oral Tablet (Ambien)Indications: Chronic insomnia Take 1 Tablet by mouth at bedtime. for sleep. 30 Tablet 08/27/2023 Active traMADol HCl 50 MG Oral Tablet (Ultram)Indications: Nontraumatic complete tear of right rotator cuff,Primary osteoarthritis involving multiple joints Take 1 Tablet by mouth every 6 hours as needed (take 1 tablet by mouth every 6 hours if needed for severe pain). 30 Tablet 08/27/2023 Active Escitalopram Oxalate 5 MG Oral Tablet [...] as of this encounter (statuses as of 09/11/2023) Active Problems Problem Noted Date Diagnosed Date Overweight (BMI 25.0-29.9) 07/26/2022 Acute recurrent frontal sinusitis 07/26/2022 Atypical migraine 11/08/2021 Chronic insomnia 06/18/2021 Prediabetes 03/07/2021 History of atrial fibrillation 03/06/2021 History of pulmonary embolism 07/09/2020 Overview: Bilateral in setting of covid19 and immobility Depression with anxiety 10/24/2018 Acquired hypothyroidism 07/02/2013 documented as of this encounter (statuses as of 09/11/2023) Resolved Problems Problem Noted Date Diagnosed Date Resolved Date Obesity, Class I, BMI 30.0-3 4.9 (see actual BMI) 06/20/2021 05/31/2023 Paroxysmal atrial fibrillation 07/09/2020 03/06/2021 Insomnia 07/02/2013 06/18/2021 Acute sinusitis 07/08/2012 07/02/2013 Anxiety state 12/25/2007 07/02/2013 NONE 05/11/2004 12/25/2007 documented as of this encounter (statuses as of 09/11/2023) Immunizations Name Administration Dates Next Due COVID-19 [...] in the Last Year Never true 04/20/2019 Utilities Answer Date Recorded Do you have trouble paying y our heating, water, or electric bill? (Adult - for ages 18 years and over) Not on file 08/20/2023 Is your family able to pay t he heat, water, or electric bill? (Household - for ages 0-17 years) Not on file 08/20/2023 Does your family have access to good internet? (Household - for ages 0-17 years) Not on file 08/20/2023 Social Connections Answer Date Recorded How often do you feel lonely or isolated from those around you? (Adult - for ages 18 years and over) Not on file 08/20/2023 Sex and Gender Information Value Date Recorded Sex Assigned at Not on file Gender Identity Not on file Sexual Orientation Not on file Job Start Date Occupation Industry Not on file Not on file Not on file documented as of this encounter Miscellaneous Notes * Telephone Encounter - Phan Lance RPh - 09/11/2023 12:55 PM EDT Refused Prescriptions: Disp Refills Meloxicam 15 MG Oral Tablet (Mobic) 30 Tab*0 Sig: TAKE ONE TABLET BY MOUTH EVERY MORNING FOR PAINRefused By: PHAN LANCE for Refusal: Duplicate Reque st documented in this encounter Plan of Treatment Upcoming Encounters Date Type Department Care Team (Latest Contact Info) Description 09/26/2023 1:20 PM EDT Hospital Encounter [facility] Room [facility] [address] [place] [phone] Jonathan Ball DO [address] [place] [phone] 09/26/2023 1:20 PM EDT - 09/26/2023 1:45 PM EDT Surgery OR [facility], Operating Room [facility] [address] [place] [phone] Jonathan Ball, DO [address] [place] [phone] INJECTION SPINE LUMBAR OR SACRAL 09/30/2023 1:15 PM EDT Imaging Radiology [address] [place] [address] 10/04/2023 8:20 AM EDT Office [facility] [address] [place] [address] Ishan Galvin PA-C [address] [place] [address] Scheduled Procedures Name Priority Associated Diagnoses Date/Ti [...] of 3) 11/01/2022 09/06/2022, 09/01 COVID-19 Vaccine ( season) 2022 11/13/2020, 10/01/2020 Colorectal Cancer Screening 03/09/2023 Fecal Occult Blood Test 03/09/2023 03/09/19 23, 03/09/2022, 11/23/2020, Additional history exists Mammogram 09/25/2023 09/24/2022, 09/02, 07/15/2020, Additional history exists Influenza Vaccine (FLU shot) (#1) 2023 01/04/2020, 03/07/2018, 03/07/2018, Additional history exists HbA1c 11/14/2023 11/13/2022, 03/06/2021 TSH 11/14/2023 11/13/2022, 10/0 06/2021, 03/06/2021, Additional history exists Lipid Panel 11/14/2027 11/13/2022, 09/02, 09/19/2015, Additional history exists DTaP,Tdap,and Td Vaccines [...] of this encounter Visit Diagnoses Diagnosis Chronic right-sided low back pain with right-sided sciatica Spinal stenosis of lumbar region with neurogenic claudication Spinal stenosis, lumbar region, with neurogenic claudication documented in this encounter Care Teams Obstetrics Nurse Practitioner Relationship Specialty Start Date End Date Emery Plummer MD [address] [place] [address] PCP - General Family Medicine 07/14/20 documented as of this encounter
--- OUTSIDE RECORDS SUMMARY | 2023-09-16 11:04 | External Medical Summary | Summary of Care ---
Author Name Unknown Organization [facility] Address [address] [place] [address] Phone [phone] Care Team Providers Care Cheese Tester Name Role Phone Roberto Pruett MD Primary Care Provider [phone] Reason for Visit * Reason Onset Date Comments Medication Refill 08/27/2023 Encounter Details Date Type Department Care Team (Late st Contact Info) Description 08/27/[address] [facility] [place] [address] Roberto Pruett MD [address] [place] [address] Chronic insomnia; Nontraumatic complete tear of right rotator cuff; Primary osteoarthritis involving multiple joints Allergies No known active allergiesdocumented as of this encounter (statuses as of 08/27/2023) Medications Medication Sig Dispensed Refills Start Date [...] at bedtime. 90 Tablet 3 2023 Active Escitalopram Oxalate 5 MG Oral Tablet (Lexapro)Indications :Depression with anxiety Take 1 Tablet by mouth in the morning. 90 Tablet 2 05/01/2023 Active Levothyroxine Sodium 112 MCG Oral Tablet (Levoxyl)Indications :Acquired hypothyroidism take 1 tablet by mouth once daily AT LEAST 30 MINUTES PRIOR TO BREAKFAST OR OTHER MEDS 90 Tablet 2 05/01/2023 Active Clobetasol Propionate 0.05 % External Cream (Temovate) Apply topically to affected area 2 times a day. To affected area for up to two weeks. 15 g 1 06/17/2023 Active LORazepam 1 MG Oral Tablet (Ativan)Indications: Spinal stenosis of lumbar region with neurogenic claudication,Lumbar radicular pain Take one tablet by mouth thirty minutes prior to procedure. 1 Tablet 07/24/2023 Active Meloxicam 15 MG Oral Tablet (Mobic)Indications:C hronic right-sided low back pain with right-sided sciatica TAKE ONE TABLET BY MOUTH EVERY MORNING FOR PAIN 30 Tablet 08/01/2023 Active Zolpidem Tartrate 10 MG Oral Tablet [...] for severe pain). 30 Tablet 08/27/2023 Active Zolpidem Tartrate 10 MG Oral Tablet [...] pain). 30 Tablet 08/01/2023 4 Discontinue d(Refill) documented as of this encounter (statuses as of 08/27/2023) Active Problems Problem Noted Date Diagnosed Date Overweight (BMI 25.0-29.9) 07/26/2022 Acute recurrent frontal sinusitis 07/26/2022 Atypical migraine 11/08/2021 Chronic insomnia 06/18/2021 Prediabetes 03/07/2021 History of atrial fibrillation 03/06/2021 History of pulmonary embolism 07/09/2020 Overview: Bilateral in setting of covid19 and immobility Depression with anxiety 10/24/2018 Acquired hypothyroidism 07/02/2013 documented as of this encounter (statuses as of 08/27/2023) Resolved Problems Problem Noted Date Diagnosed Date Resolved Date Obesity, Class I, BMI 30.0-3 4.9 (see actual BMI) 06/20/2021 05/31/2023 Paroxysmal atrial fibrillation 07/09/2020 03/06/2021 Insomnia 07/02/2013 06/18/2021 Acute sinusitis 07/08/2012 07/02/2013 Anxiety state 12/25/2007 07/02/2013 NONE 05/11/2004 12/25/2007 documented as of this encounter (statuses as of 08/27/2023) Immunizations Name Administration Dates Next Due COVID-19 [...] encounter Miscellaneous Notes * Telephone Encounter - Roberto Prutet MD - 08/27/2023 4:33 PM EDTSigned Prescriptions: Disp Refills Zolpidem Tartrate [...] severe pain). Author izing Provider: ROBERTO PRUETT * Telephone Encounter - Harsh Kee [facility] - 08/27/2023 4:23 PM EDTPending Prescriptions: Disp Refills Zolpidem Tartrate 10 MG Oral Tablet (Ambie*30 Tab*0 Sig: Take 1 Tablet by mouth at bedtime. for sleep. traMADol HCl 50 MG Oral Tablet (Ultram) 30 Tab*0 Sig: Take 1 Tablet by mouth every 6 hours as needed (take 1 tablet by mouth every 6 hours if needed for severe pain). * Telephone Encounter - Harsh Kee [facility] - 08/27/2023 4:22 PM EDT I have reviewed the patients controlled substance dispensing history in the Prescription Drug Monitoring Program in compliance with the [facility] regulations before prescribing a controlled substance. PDMP checked on 08/27/2023. Pending Prescriptions: Disp Refills Zolpidem Tartrate 10 MG Oral Tablet (Ambi*30 Tab*0 Sig: Take 1 Tablet by mouth at bedtime. for sleep. traMADol HCl 50 MG Oral Tablet (Ultram) 30 Tab*0 Sig: Take 1 Tablet by mouth every 6 hours as needed (take 1 tablet by mouth every 6 hours if needed for severe pain). Last Visit: 05/31/2023 (in office), 03/03/2020 (telemedicine) Next Visit: Visit date not found Date medication was last filled: 08/02/2023; 08/01/2023 Date medication is due for refill: 08/31/2023; 08/07/2023 Pharmacy: [facility] Is this request for a controlled substance? Yes and Urine Drug Screen Not completed Toxicology results: No results found for this or any previous visit. Please approve if appropriate. Thanks, Harsh Kee Pharm.D. Clinical Pharmacist [facility] ([facility]) [phone] 08/27/2023, 4:22 PM * Telephone Encounter - Rita Todd CPhT - 08/27/2023 8:44 AM EDT Did you pend patient's preferred pharmacy and medication before forwarding?yes Pharmacy: [facility] [address] [place] [address] Pending Prescriptions: Disp Refills Zolpidem Tartrate 10 MG Oral Tablet (Ambi*30 Tab*0 Sig: Take 1 Tablet by mouth at bedtime. for sleep. traMADol HCl 50 MG Oral Tablet (Ultram) 30 Tab*0 Sig: Take 1 Tablet by mouth every 6 hours as needed (take 1 tablet by mouth every 6 hours if needed for severe pain). Last Visit: 05/31/2023 (in office), 03/03/2020 (telemedicine) Next Visit: Visit date not found If no future appointments scheduled, and last appointment is greater than a year ago, please schedule patient for a follow-up appointment Last date the medication was ordered: 08/01/2023 Is this request for a controlled substance?Yes, What was the last refill date 08/01/2023 w/ [id number] and dosage 10,50 and Urine Drug Screen Not completed Urine [...] EDT Hospital Encounter OR [facility], Operating Room [facility] [address] [place] [address] Jonathan Ball, DO [address] [place] [address] 09/26/2023 1:20 PM EDT - 09/26/2023 1:45 PM EDT Surgery OR [facility], Operating Room [facility] [address] [place] [phone] Jonathan Ball, DO [address] [place] [address] INJECTION SPINE LUMBAR OR SACRAL 09/30/2023 1:15 PM EDT Imaging Radiology [address] [place] [address] 10/04/2023 8:20 AM EDT Office Visit Family Practice [address] [place] [address] Ishan Galvin PA-C [address] [place] [address] Scheduled Procedures Name Priority Associated Diagnoses Date/Ti [...] 11/01/2022 09/06/2022, 09/01 COVID-19 Vaccine (3 - season) 2022 11/13/2020, 10/01/2020 Colorectal Cancer Screening 03/09/2023 Fecal Occult Blood Test 03/09/2023 03/09/19 23, 03/09/2022, 11/23/2020, Additional history exists Mammogram 09/25/2023 09/24/2022, 09/02, 07/15/2020, Additional history exists Influenza Vaccine (FLU shot) (Season Ended) 2023 01/04/2020, 03/07/2018, 03/07/2018, Additional history exists HbA1c 11/14/2023 11/13/2022, 03/06/2021 TSH 11/14/2023 11/13/2022, 06/2021, 03/06/2021, Additional history exists Lipid Panel 11/14/2027 11/13/2022, 09/02, 09/19/2015, Additional history exists DTaP,Tdap,and Td Vaccines (3 - Td or Tdap) 10/24/2029 10/25/2019, 07/14/2012 Pneumococcal Vaccine: 65+ Years Completed 01/04/2020, 03/09/2019 GARDASIL-HPV IMMUNIZATION SERIES Aged Out No longer eligible based on patient's age to complete this topic Hepatitis B Aged Out No longer eligi ble based on patient's age to complete this topic MENINGOCOCCAL (MENACTRA/MENVEO) Aged Out No longer eligible based on patient's age to complete this topic documented as of this encounter Medical Devices Not on filedocumented as of this encounter Visit Diagnoses Diagnosis Chronic insomnia Insomnia, unspecified Nontraumatic complete tear of right rotator cuff Primary osteoarthritis involving multiple joints Spinal stenosis of lumbar region with neurogenic claudication Spinal stenosis, lumbar region, with neurogenic claudication documented in this encounter Care Teams Cheese Tester Relationship Specialty Start Date End Date Roberto Pruett MD [address] [place] [address] PCP - General Family Medicine 07/14/20 documented as of this encounter
--- OUTSIDE RECORDS SUMMARY | 2023-09-16 11:04 | External Medical Summary | Summary of Care ---
Author Name Unknown Organization [facility] Address [address] [place] [address] Phone [phone] Care Team Providers Care Overweaver Name Role Phone Emery Plummer MD Primary Care Provider [phone] Reason for Visit * Reason Onset Date Comments Medication Refill 07/31/2023 Encounter Details Date Type Department Care Team (Late st Contact Info) Description 07/31/2023 [facility]ill [facility] [place] [address] Emery Plummer MD [address] [facility] [place] [address] Allergies No known active allergiesdocumented as of this encounter (statuses as of 08/17/2023) Medications Medication Sig Dispensed Refills Start Date End Date Status Ventolin HFA 108 (90 Base) MCG/ACT Inhalation Aerosol SolutionIndications:Ac [place] non-recurrent sinusitis, unspecified location Inhale by mouth 2 Puffs every 4 hours as needed for Wheezing. 8 g 1 11/25/2021 Active Rizatriptan Benzoate 10 MG Oral Tablet (Maxalt)Indications:At ypical migraine Take 1 Tablet by mouth as needed for Migraine. at onset of headache, may repeat every 2 hours up to 2 times. Up to 3 tablets in 24 hours 20 Tablet 3 07/26/2022 Active Ramelteon 8 MG Oral Tablet (Rozerem) Take 1 Tablet by mouth at bedtime. 90 Tablet 3 2023 Active Escitalopram Oxalate 5 MG Oral Tablet (Lexapro)Indications:D epression with anxiety Take 1 Tablet by mouth in the morning. 90 Tablet 2 05/01/2023 Active Levothyroxine Sodium 112 MCG Oral Tablet (Levoxyl)Indications:A cquired hypothyroidism take 1 tablet by mouth once daily AT LEAST 30 MINUTES PRIOR TO BREAKFAST OR OTHER MEDS 90 Tablet 2 05/01/2023 Active Clobetasol Propionate 0.05 % External Cream (Temovate) Apply topically to affected area 2 times a day. To affected area for up to two weeks. 15 g 1 06/17/2023 Active LORazepam 1 MG Oral Tablet (Ativan)Indications:Sp inal stenosis of lumbar region with neurogenic claudication,Lumbar radicular pain Take one tablet by mouth thirty minutes prior to procedure. 1 Tablet 07/24/2023 Active documented as of this encounter (statuses as of 08/17/2023) Active Problems Problem Noted Date Diagnosed Date Overweight (BMI 25.0-29.9) 07/26/2022 Acute recurrent frontal sinusitis 07/26/2022 Atypical migraine 11/08/2021 Chronic insomnia 06/18/2021 Prediabetes 03/07/2021 History of atrial fibrillation 03/06/2021 History of pulmonary embolism 07/09/2020 Overview: Bilateral in setting of covid19 and immobility Depression with anxiety 10/24/2018 Acquired hypothyroidism 07/02/2013 documented as of this encounter (statuses as of 08/17/2023) Resolved Problems Problem Noted Date Diagnosed Date Resolved Date Obesity, Class I, BMI 30.0-3 4.9 (see actual BMI) 06/20/2021 05/31/2023 Paroxysmal atrial fibrillation 07/09/2020 03/06/2021 Insomnia 07/02/2013 06/18/2021 Acute sinusitis 07/08/2012 07/02/2013 Anxiety state 12/25/2007 07/02/2013 NONE 05/11/2004 12/25/2007 documented as of this encounter (statuses as of 08/17/2023) Immunizations Name Administration Dates Next Due COVID-19 [...] encounter Miscellaneous Notes * Telephone Encounter - Мария Smith CPhT - 07/31/2023 10:43 AM EDT Pt calling to request Clobetasol Propionate 0.05 % External Cream (Temovate) . Informed pt that RX is available at their pharmacy. Pt verbalized understanding and stated they will check with their pharmacy regarding this medication. Thank you, Мария Smith CPhT Dry Drug Worker II [facility] Services ([facility]) (Formerly Telepharmacy) 07/31/2023,10:44 AM documented in this encounter Plan of Treatment Upcoming Encounters Date Type Department Care Team (Latest Contact Info) Description 09/26/2023 1:20 PM EDT Hospital Encounter OR [facility], Operating Room [facility] [address] [place] [phone] Jonathan Ball, DO [address] [place] [address] 09/26/2023 1:20 PM EDT - 09/26/2023 1:45 PM EDT Surgery OR [facility], Operating Room [facility] [address] [place] [phone] Jonathan Ball, [address] [place] [address] INJECTION SPINE LUMBAR OR SACRAL 09/30/2023 1:15 PM EDT Imaging Radiology [address] [place] [address] 10/04/2023 8:20 AM EDT Office Visit Family Practice [address] [place] [address] Ishan Galvin PA-C [address] [place] [address] Scheduled Procedures Name Priority Associated Diagnoses Date/Ti [...] Not on filedocumented as of this encounter Care Teams Overweaver Relationship Specialty Start Date End Date Emery Plummer MD [address] [facility] [place] [address] PCP - General Family Medicine 07/14/20 documented as of this encounter
--- OUTSIDE RECORDS SUMMARY | 2023-09-16 11:04 | External Medical Summary | Summary of Care ---
Author Name Unknown Organization [facility] Address [address] [place] [address] Phone [phone] Care Team Providers Care Mail Weigher Name Role Phone Roberto Pruett MD Primary Care Provider [phone] Reason for Referral * Medication Prior Authorization - Pending Review Specialty Diagnoses / Procedures Referred By Conttessa t Referred To Contact Diagnoses Chronic insomnia Roberto Pruett MD [address] [place] [address] Referral ID Status Reason Start Date Expiration Date V isits Requested Visits Authorized [id number] Pending Review [id number] Reason for Visit * Reason Onset Date Comments Medication Refill 07/31/2023 Medication Pre-auth 07/31/2023 Encounter Details Date Type Department Care Team (Late st Contact Info) Description 07/31/2023 Telephone Family Practice [facility] [address] [facility] [place] [address] Roberto Pruett MD [address] [place] [address] Medication Refill; Medication Pre-auth Allergies No known active allergiesdocumented as of this encounter (statuses as of 08/02/2023) Medications Medication Sig Dispensed Refills Start Date [...] at bedtime. for sleep. 30 Tablet 08/01/2023 Active traMADol HCl 50 MG Oral Tablet (Ultram)Indications: Nontraumatic complete tear of right rotator cuff,Primary osteoarthritis involving multiple joints Take 1 Tablet by mouth every 6 hours as needed (take 1 tablet by mouth every 6 hours if needed for severe pain). 30 Tablet 08/01/2023 Active Meloxicam 15 MG Oral Tablet (Mobic)Indications:C hronic right-sided low back pain with right-sided sciatica TAKE ONE TABLET BY MOUTH EVERY MORNING FOR PAIN 30 Tablet 08/01/2023 Active Meloxicam 15 MG Oral Tablet (Mobic)Indications:C [...] sleep. 30 Tablet 06/18/2023 4 Discontinue d(Refill) documented as of this encounter (statuses as of 08/02/2023) Active Problems Problem Noted Date Diagnosed Date Overweight (BMI 25.0-29.9) 07/26/2022 Acute recurrent frontal sinusitis 07/26/2022 Atypical migraine 11/08/2021 Chronic insomnia 06/18/2021 Prediabetes 03/07/2021 History of atrial fibrillation 03/06/2021 History of pulmonary embolism 07/09/2020 Overview: Bilateral in setting of covid19 and immobility Depression with anxiety 10/24/2018 Acquired hypothyroidism 07/02/2013 documented as of this encounter (statuses as of 08/02/2023) Resolved Problems Problem Noted Date Diagnosed Date Resolved Date Obesity, Class I, BMI 30.0-3 4.9 (see actual BMI) 06/20/2021 05/31/2023 Paroxysmal atrial fibrillation 07/09/2020 03/06/2021 Insomnia 07/02/2013 06/18/2021 Acute sinusitis 07/08/2012 07/02/2013 Anxiety state 12/25/2007 07/02/2013 NONE 05/11/2004 12/25/2007 documented as of this encounter (statuses as of 08/02/2023) Immunizations Name Administration Dates Next Due COVID-19 [...] encounter Miscellaneous Notes * Telephone Encounter - Melba Fletcher end frazer - 08/02/2023 8:31 AM EDT Mai calling from [facility]. Needs clinical information sent over for Zolpidem tart 10mg. Please fax information to [phone] or drop in [facility] chat by 4pm today under EOC [id number] Melba Etienne Devulcanizer Operator III [facility] ([facility]) 08/02/2023,8:31 [...] PRUETT * Telephone Encounter - Roberto Ornelas [facility] - 08/01/2023 1:48 PM EDT Pending Prescriptions: [...] PAIN * Telephone Encounter - Roberto Ornelas [facility] - 08/01/2023 1:47 PM EDT I have reviewed the patients controlled substance dispensing history in the Prescription Drug Monitoring Program in compliance with the [facility] regulations before prescribing a controlled substance. PDMP [...] is due for refill: 07/16 06/23 Pharmacy: [facility] [address] [place] [address] Is this request for a controlled substance? Yes and Urine Drug Screen Not completed Toxicology results: No results found for this or any previous visit. Please approve if appropriate. Thanks, Roberto Ornelas, PharmD Clinical Pharmacist [facility] Services(formerly telepharmacy) [phone] 08/01/2023, 1:47 PM * Telephone Encounter - Rita Todd CPhT - 07/31/2023 10:22 AM EDT Did you pend patient's preferred pharmacy and medication before forwarding?yes Pharmacy: [facility] [address] [place] [address] Pending Prescriptions: Disp Refills Zolpidem Tartrate 10 [...] was the last refill date 06/18/2023 w/ [id number] and dosage 30 and Urine Drug Screen [...] OR [facility], Operating Room [facility] [address] [place] [phone] Jonathan Ball DO [address] [place] [address] 09/26/2023 1:20 PM EDT - 09/26/2023 1:45 PM EDT Surgery OR [facility], Operating Room [facility] [address] [place] [phone] Jonathan Ball DO [address] [place] [address] INJECTION SPINE LUMBAR OR SACRAL 09/30/2023 1:15 PM EDT Imaging Radiology [facility] [address] [place] [address] 10/04/2023 8:20 AM EDT Office Visit Family Practice [address] [place] [address] Ishan Galvin PA-C [address] [place] [address] Scheduled Procedures Name Priority Associated Diagnoses Date/Ti me INJECTION SPINE LUMBAR OR SACRAL Spinal stenosis of lumbar region with neurogenic claudication 09/26/2023 1:20 PM EDT COLONOSCOPY FLEXIBLE PROXIMAL DIAGNOSTIC Recall Special screening for malignant neoplasms, colon Health Maintenance Due Date Last Done Comments DXA Scan 1953 Cologuard 1998 Sigmoidoscopy 1998 Colonoscopy 12/05/2020 12/05/2010, 05/18/2008 Zoster Vaccines (3 of 3) 11/01/2022 09/06/2022, [...] documented in this encounter Care Teams Mail Weigher Relationship Specialty Start Date End Date Roberto Pruett MD [address] [place] [address] PCP - General Family Medicine 07/14/20 documented as of this encounter
--- OUTSIDE RECORDS SUMMARY | 2023-09-16 11:04 | External Medical Summary | Summary of Care ---
Author Name Unknown Organization [facility] Address [address] [place] [address] Phone [phone] Care Team Providers Care Supply Officer Name Role Phone Emery Plummer MD Primary Care Provider [phone] Reason for Visit * Reason Onset Date Comments Films 08/05/2023 Encounter Details Date Type Department Care Team (Late st Contact Info) Description 08/05/2023 Telephone Family Practice [facility] [address] [place] [address] Emery Plummer MD [address] [facility] [place] [address] Films Allergies No known active allergiesdocumented as of this encounter (statuses as of 08/05/2023) Medications Medication Sig Dispensed Refills Start Date End Date Status Ventolin HFA 108 (90 Base) MCG/ACT Inhalation Aerosol SolutionIndications:Ac [place] non-recurrent sinusitis, unspecified location Inhale by mouth [...] Active Zolpidem Tartrate 10 MG Oral Tablet (Ambien)Indications:Ch ronic insomnia Take 1 Tablet by mouth at bedtime. for sleep. 30 Tablet 08/01/2023 Active traMADol HCl 50 MG Oral Tablet (Ultram)Indications:No ntraumatic complete tear of right rotator cuff,Primary osteoarthritis involving multiple joints Take 1 Tablet by mouth every 6 hours as needed (take 1 tablet by mouth every 6 hours if needed for severe pain). 30 Tablet 08/01/2023 Active Meloxicam 15 MG Oral Tablet (Mobic)Indications:Chr onic right-sided low back pain with right-sided sciatica TAKE ONE TABLET BY MOUTH EVERY MORNING FOR PAIN 30 Tablet 08/01/2023 Active documented as of this encounter (statuses as of 08/05/2023) Active Problems Problem Noted Date Diagnosed Date Overweight (BMI 25.0-29.9) 07/26/2022 Acute recurrent frontal sinusitis 07/26/2022 Atypical migraine 11/08/2021 Chronic insomnia 06/18/2021 Prediabetes 03/07/2021 History of atrial fibrillation 03/06/2021 History of pulmonary embolism 07/09/2020 Overview: Bilateral in setting of covid19 and immobility Depression with anxiety 10/24/2018 Acquired hypothyroidism 07/02/2013 documented as of this encounter (statuses as of 08/05/2023) Resolved Problems Problem Noted Date Diagnosed Date Resolved Date Obesity, Class I, BMI 30.0-3 4.9 (see actual BMI) 06/20/2021 05/31/2023 Paroxysmal atrial fibrillation 07/09/2020 03/06/2021 Insomnia 07/02/2013 06/18/2021 Acute sinusitis 07/08/2012 07/02/2013 Anxiety state 12/25/2007 07/02/2013 NONE 05/11/2004 12/25/2007 documented as of this encounter (statuses as of 08/05/2023) Immunizations Name Administration Dates Next Due COVID-19 [...] encounter Miscellaneous Notes * Telephone Encounter - Eloina Cherry OSA - 08/05/2023 10:23 AM EDT Patient requested for 07-11-2023 MRI Image(s) be prepared and available for pickup Disc created and placed at [facility] first front ventilator with patient right of access form Patient/medicare sales representative notified that disc ready for pickup documented in this encounter Plan of Treatment Upcoming Encounters Date Type Department Care Team (Latest Contact Info) Description 09/26/2023 1:20 PM EDT Hospital Encounter OR [facility], Operating Room [facility] [address] [place] [phone] Jonathan Ball, [address] [place] [address] 09/26/2023 1:20 PM EDT - 09/26/2023 1:45 PM EDT Surgery OR [facility], Operating Room [facility] [address] [place] [phone] Jonathan Ball, [address] [place] [phone] INJECTION SPINE LUMBAR OR SACRAL 09/30/2023 1:15 PM EDT Imaging Radiology [address] [place] [address] 10/04/2023 8:20 AM EDT Office Visit Family Practice [address] [place] [address] Ishan Galvin PA-C [address] [place] [address] Scheduled Procedures Name Priority Associated Diagnoses Date/Ti [...] filedocumented as of this encounter Care Teams Supply Officer Relationship Specialty Start Date End Date Emery Plummer MD [address] [place] [address] PCP - General Family Medicine 07/14/20 documented as of this encounter
--- OUTSIDE RECORDS SUMMARY | 2023-09-16 11:04 | External Medical Summary | Summary of Care ---
Author Name Unknown Organization [facility] Address [address] [place] [address] Phone [phone] Care Team Providers Care Tin Pourer Name Role Phone Roberto Pruett MD Primary Care Provider [phone] Reason for Referral * Medication Prior Authorization - Pending Review Specialty Diagnoses / Procedures Referred By Conttessa t Referred To Contact Diagnoses Chronic insomnia Roberto Pruett MD [address] [place] [address] Referral ID Status Reason Start Date Expiration Date V isits Requested Visits Authorized [id number] Pending Review [phone] Reason for Visit * Reason Onset Date Comments Medication Refill 07/31/2023 Medication Pre-auth 07/31/2023 Encounter Details Date Type Department Care Team (Late st Contact Info) Description 07/31/2023 Telephone Family Practice [facility] [address] [place] [address] Roberto Pruett MD [address] [place] [address] Medication Refill; Medication Pre-auth Allergies No known [...] Notes * Telephone Encounter - Angle Garcia RPh - 08/02/2023 8:43 AM EDT Upon chart review - patient refused to try alternatives that are covered on plan. She prefers to pay out of pocket for the zolpidem. No PA needed at this time. Closing encounter. Thank you, Angle Garcia, DavidD Clinical Pharmacist [facility] ([facility]) 08/02/23 8:44 AM [phone] * Telephone Encounter - Melba Fletcher edger hand - 08/02/2023 8:31 AM EDT Mai granda from [facility]. Needs clinical information sent over for Zolpidem tart 10mg. Please fax information to [phone] or drop in [facility] chat by 4pm today under EOC [id number] [place], Melba Fletcher Co Founder And Director III [facility] Pharmacy Services ([facility]) 08/02/2023,8:31 AM * [...] PRUETT * Telephone Encounter - Roberto Ornelas [facility] - 08/01/2023 1:48 PM EDT Pending Prescriptions: [...] PAIN * Telephone Encounter - Roberto Ornelas [facility] - 08/01/2023 1:47 PM EDT I have reviewed the patients controlled substance dispensing history in the Prescription Drug Monitoring Program in compliance with the [facility] regulations before prescribing a controlled substance. [...] is due for refill: 07/16 06/23 Pharmacy: [facility] [address] [place] [address] Is this request for a controlled substance? Yes and Urine Drug Screen Not completed Toxicology results: No results found for this or any previous visit. Please approve if appropriate. Thanks, Roberto Ornelas, PharmD Clinical Pharmacist [facility](formerly telepharmacy) [phone] 08/01/2023, 1:47 PM * Telephone Encounter - Rita Todd CPhT - 07/31/2023 10:22 AM EDT Did you pend patient's preferred pharmacy and medication before forwarding?yes Pharmacy: [facility] [address] [place] [address] Pending Prescriptions: Disp Refills Zolpidem Tartrate 10 [...] was the last refill date 06/18/2023 w/ [id number] and dosage 30 and Urine Drug Screen [...] Hospital Encounter OR [facility], Operating Room [facility] [address] [place] [address] [place] [phone] Jonathan Ball, DO [address] [place] [phone] 09/26/2023 1:20 PM EDT - 09/26/2023 1:45 PM EDT Surgery OR [facility], Operating Room [facility] [address] [place] [phone] Jonathan Ball, DO [address] [place] [phone] INJECTION SPINE LUMBAR OR [facility] 09/30/2023 1:15 PM EDT Imaging Radiology [address] [place] [address] 10/04/2023 8:20 AM EDT Office Visit Family [facility] [address] [place] [address] Ishan Galvin PA-C [address] [place] [address] Scheduled Procedures Name Priority Associated Diagnoses Date/Ti [...] of 3) 11/01/2022 09/06/2022, 09/01 COVID-19 Vaccine (2022- season) 2022 11/13/2020, 10/01/2020 Colorectal Cancer Screening [...] claudication documented in this encounter Care Teams Tin Pourer Relationship Specialty Start Date End Date Roberto Pruett MD [address] [place] [address] PCP - General Family Medicine 07/14/20 documented as of this encounter
--- OUTSIDE RECORDS SUMMARY | 2023-09-16 11:04 | External Medical Summary | Summary of Care ---
Author Name Unknown Organization [facility] Address [address] [place] [address] Phone [phone] Care Team Providers Care Wood Carver Name Role Phone Emery Plummer MD Primary Care Provider [phone] Reason for Visit * Reason Onset Date Comments Appointment 07/24/2023 Encounter Details Date Type Department Care Team (Late st Contact Info) Description 07/24/2023 Telephone Family Practice [facility] [address] [place] [address] Emery Plummer MD [address] [facility] [place] [address] Appointment Allergies No known active allergiesdocumented as of this encounter (statuses as of 07/25/2023) Medications Medication Sig Dispensed Refills Start Date End Date Status Ventolin HFA 108 (90 Base) MCG/ACT Inhalation Aerosol SolutionIndications:[place] non-recurrent sinusitis, unspecified location Inhale by mouth [...] OTHER MEDS 90 Tablet 2 05/01/2023 Active Meloxicam 15 MG Oral Tablet (Mobic)Indications:Chr onic right-sided low back pain with right-sided sciatica TAKE ONE TABLET BY MOUTH EVERY MORNING FOR PAIN 30 Tablet 06/18/2023 Active traMADol HCl 50 MG Oral Tablet (Ultram)Indications:No ntraumatic complete tear of right rotator cuff,Primary osteoarthritis involving multiple joints Take 1 Tablet by mouth every 6 hours as needed (take 1 tablet by mouth every 6 hours if needed for severe pain). 30 Tablet 06/18/2023 Active Zolpidem Tartrate 10 MG Oral Tablet (Ambien)Indications:Ch ronic insomnia Take 1 Tablet by mouth at bedtime. for sleep. 30 Tablet 06/18/2023 Active Clobetasol Propionate 0.05 % External Cream [...] as of this encounter (statuses as of 07/25/2023) Active Problems Problem Noted Date Diagnosed Date Overweight (BMI 25.0-29.9) 07/26/2022 Acute recurrent frontal sinusitis 07/26/2022 Atypical migraine 11/08/2021 Chronic insomnia 06/18/2021 Prediabetes 03/07/2021 History of atrial fibrillation 03/06/2021 History of pulmonary embolism 07/09/2020 Overview: Bilateral in setting of covid19 and immobility Depression with anxiety 10/24/2018 Acquired hypothyroidism 07/02/2013 documented as of this encounter (statuses as of 07/25/2023) Resolved Problems Problem Noted Date Diagnosed Date Resolved Date Obesity, Class I, BMI 30.0-3 4.9 (see actual BMI) 06/20/2021 05/31/2023 Paroxysmal atrial fibrillation 07/09/2020 03/06/2021 Insomnia 07/02/2013 06/18/2021 Acute sinusitis 07/08/2012 07/02/2013 Anxiety state 12/25/2007 07/02/2013 NONE 05/11/2004 12/25/2007 documented as of this encounter (statuses as of 07/25/2023) Immunizations Name Administration Dates Next Due COVID-19 [...] encounter Miscellaneous Notes * Telephone Encounter - Milady Galvez OSA - 07/25/2023 8:52 AM EDT Appt scheduled with pt * Telephone Encounter - Emery Plummer MD - 07/24/2023 7:40 PM EDT US ordered for probable benign kidney lesion. Patient aware of finding. Please schedule us. documented in this encounter Plan of Treatment Upcoming Encounters Date Type Department Care Team (Latest Contact Info) Description 07/31/2023 10:15 AM EDT Imaging Radiology [facility] [address] [place] [address] 09/26/2023 1:20 PM EDT Hospital Encounter OR [facility], Operating Room [facility] [address] [place] [phone] Jonathan Ball, [address] [place] [phone] 09/26/2023 1:20 PM EDT - 09/26/2023 1:45 PM EDT Surgery OR [facility], Operating Room [facility] [address] [place] [phone] Jonathan Ball, [address] [place] [phone] INJECTION SPINE LUMBAR OR [facility] 09/30/2023 1:15 PM EDT Imaging Radiology [address] [place] [address] 10/04/2023 8:20 AM EDT Office Visit Family Practice [address] [place] [address] Ishan Galvin PA-C [address] [place] [address] Scheduled Orders Name Type Priority Associated Diagnoses Orde r Schedule US RENAL Medical Imaging Routine Renal cyst Expected: 07/25/2023, Expires: 08/23/2024 Scheduled Procedures Name Priority Associated Diagnoses Date/Ti [...] as of this encounter Visit Diagnoses Diagnosis Renal cyst- Primary Unspecified congenital cystic kidney disease Spinal stenosis of lumbar region with neurogenic claudication Spinal stenosis, lumbar region, with neurogenic claudication documented in this encounter Care Teams Wood Carver Relationship Specialty Start Date End Date Emery Plummer MD [address] [place] [address] PCP - General Family Medicine 07/14/20 documented as of this encounter
--- OUTSIDE RECORDS SUMMARY | 2023-09-16 11:04 | External Medical Summary | Summary of Care ---
Author Name Unknown Organization [facility] Address [address] [place] [address] Phone [phone] Care Team Providers Care Cargo Trimmer Name Role Phone Roberto Pruett MD Primary Care Provider [phone] Reason for Visit * Reason Onset Date Comments Medication Refill 09/10/2023 Encounter Details Date Type Department Care Team (Late st Contact Info) Description 09/10/2023 Refill Family Practice [facility] [address] [facility] [place] [address] Roberto Pruett MD [address] [facility] [place] [address] Chronic right-sided low back pain with right-sided sciatica; Acquired hypothyroidism; Depression with anxiety Allergies No known active allergiesdocumented as of [...] for severe pain). 30 Tablet 08/27/2023 Active Meloxicam 15 MG Oral Tablet (Mobic)Indications:C hronic right-sided low back pain with right-sided sciatica TAKE ONE TABLET BY MOUTH EVERY MORNING FOR PAIN 90 Tablet 09/11/2023 Active Levothyroxine Sodium 112 MCG Oral Tablet (Levoxyl)Indications :Acquired hypothyroidism take 1 tablet by mouth once daily AT LEAST 30 MINUTES PRIOR TO BREAKFAST OR OTHER MEDS 90 Tablet 09/11/2023 Active Escitalopram Oxalate 5 MG Oral Tablet (Lexapro)Indications :Depression with anxiety Take 1 Tablet by mouth in the morning. 90 Tablet 09/11/2023 Active Escitalopram Oxalate 5 MG Oral Tablet [...] PAIN 30 Tablet 08/01/2023 4 Discontinue d(Refill) Meloxicam 15 MG Oral Tablet (Mobic)Indications:C hronic right-sided low back pain with right-sided sciatica TAKE ONE TABLET BY MOUTH EVERY MORNING FOR PAIN 30 Tablet 09/11/2023 4 Discontinue d(Refill) documented as of this [...] Miscellaneous Notes * Telephone Encounter - Phan Lacne, [facility] - 09/11/2023 1:00 PM EDTSigned Prescriptions: Disp Refills Meloxicam 15 MG Oral Tablet (Mobic) 90 Tab*0 Sig: TAKE ONE TABLET BY MOUTH EVERY MORNING FOR PAINAuthorizing Provider: ROBERTO PRUETT User: PHAN LANCE Levothyroxine Sodium 112 MCG Oral Tablet (*90 Tab*0 Sig: take 1 tablet by mouth once daily AT LEAST 30 MINUTES PRIOR TO BREAKFAST OR OTHER MEDSAuthorizing Provider: ROBERTO PRUETT User: PHAN LANCE Escitalopram Oxalate 5 MG Oral Tablet (Omer*90 Tab*0 Sig:Take 1 Tablet by mouth in the morning.Authorizing Provider: ROBERTO PRUETT User: PHAN LANCE * Telephone Encounter - Phan Lance [facility] - 09/11/2023 12:59 PM EDT Patient is switching pharmacies. Reissued balance of refills on current maintenance prescription(s)to Mail Order per note below. Also sent 30 DS of Meloxicam to [facility] as patient requesting refills now and will call back to set up mail order account. Thank You Phan Lance, Yomi Clinical Pharmacist [facility] ([facility]) [phone] / [phone] 09/11/2023, 12:59 PM * Telephone Encounter - Nuzhat Jaffe PHARM Tech - 09/10/2023 9:58 AM EDT Pt wants to switch to mail order but will call back to set up acct. 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 Did you pend patient's preferred pharmacy and medication before forwarding?yes Pharmacy: [facility] [id number] Pending Prescriptions: Disp Refills Meloxicam 15 MG Oral Tablet (Mobic) 30 Tab*0 Sig: TAKE ONE TABLET BY MOUTH EVERY MORNING FOR PAIN Last Visit: 05/31/2023 (in office), 03/03/2020 (telemedicine) Next Visit: Visit date not found If no future appointments scheduled, and last appointment is greater than a year ago, please schedule patient for a follow-up appointment Last date the medication was ordered: Is this request for a controlled substance?No Urine Drug Screen:No results found for this [...] Operating Room [facility] [address] [place] [phone] Jonathan Ball, [address] [place] [phone] 09/26/2023 1:20 PM EDT - 09/26/2023 1:45 PM EDT Surgery OR [facility], Operating Room [facility] [address] [place] [phone] Jonathan Ball DO [address] [place] [phone] INJECTION SPINE LUMBAR OR [facility] 09/30/2023 1:15 PM EDT Imaging Radiology [address] [place] [address] 10/04/2023 8:20 AM EDT Office Visit Family Practice [address] [place] [address] Ishna Galvin PA-C [address] [place] [address] Scheduled Procedures Name Priority Associated Diagnoses Date/Ti [...] right-sided low back pain with right-sided sciatica Acquired hypothyroidism Unspecified hypothyroidism Depression with anxiety Dysthymic disorder Spinal stenosis of lumbar region with neurogenic claudication Spinal stenosis, lumbar region, with neurogenic claudication documented in this encounter Care Teams Cargo Trimmer Relationship Specialty Start Date End Date Roberto Pruett MD [address] [place] [address] PCP - General Family Medicine 07/14/20 documented as of this encounter
--- OUTSIDE RECORDS SUMMARY | 2023-09-16 11:04 | External Medical Summary | Summary of Care ---
Author Name Unknown Organization [facility] Address [address] [place] [address] Phone [phone] Care Team Providers Care Sound Technician Supervisor Name Role Phone Emery Plummer MD Primary Care Provider [phone] Reason for Visit * Reason Comments Back Pain * Evaluate & Treat - Unlimited Visits (Within 10 days (routine)) - Authorized Specialty Diagnoses / Procedures Referred By Contac t Referred To Contact Pain Management / Pain Medicine Diagnoses Spinal stenosis of lumbar region without neurogenic claudication Emery Plummer MD [address] [place] [address] Jonathan Ball DO [address] [place] [address] Referral ID Status Reason Start Date Expiration Date Visits Requested Visits Authorized [id number] Authorized Specialty Services Required 07/14/[phone] Encounter Details Date Type Department Care Team (Late st Contact Info) Description 07/24/2023 12:30 PM EDT Office Visit [facility], [facility] [address] [place] [phone] Saritha Mendoza PA-C [address] [place] [phone] Spinal stenosis of lumbar region with neurogenic claudication*; Lumbar radicular pain Allergies No known active allergiesdocumented as of this encounter (statuses as of 07/24/2023) Medications Medication Sig Dispensed Refills Start Date End Date Status Ventolin HFA 108 (90 Base) MCG/ACT Inhalation Aerosol SolutionIndications:Ac [place] non-recurrent sinusitis, unspecified location Inhale by mouth [...] as of this encounter (statuses as of 07/24/2023) Active Problems Problem Noted Date Diagnosed Date Overweight (BMI 25.0-29.9) 07/26/2022 Acute recurrent frontal sinusitis 07/26/2022 Atypical migraine 11/08/2021 Chronic insomnia 06/18/2021 Prediabetes 03/07/2021 History of atrial fibrillation 03/06/2021 History of pulmonary embolism 07/09/2020 Overview: Bilateral in setting of covid19 and immobility Depression with anxiety 10/24/2018 Acquired hypothyroidism 07/02/2013 documented as of this encounter (statuses as of 07/24/2023) Resolved Problems Problem Noted Date Diagnosed Date Resolved Date Obesity, Class I, BMI 30.0-3 4.9 (see actual BMI) 06/20/2021 05/31/2023 Paroxysmal atrial fibrillation 07/09/2020 03/06/2021 Insomnia 07/02/2013 06/18/2021 Acute sinusitis 07/08/2012 07/02/2013 Anxiety state 12/25/2007 07/02/2013 NONE 05/11/2004 12/25/2007 documented as of this encounter (statuses as of 07/24/2023) Immunizations Name Administration Dates Next Due COVID-19 [...] on file documented as of this encounter Progress Notes * Saritha Mendoza PA-C - 07/24/2023 12:19 PM EDT GENERAL HISTORY & PHYSICAL EXAMINATION - Anesthesia and Pain Service Name: Shakila Goncalves Location: [facility] REFERRING PHYSICIAN: Emery Plummer MD Thank you for referring Shakila Goncalves. CHIEF COMPLAINT: Low back pain HPI: Shakila Goncalves is a 68 year old female who complains of low back and buttock pain. This pain started more than two years ago without preceding injury. Minimal relief with conservative care including physical therapy, chiropractic manipulation (two to three times per week,) medication management, massage therapy. Followed with PCP who updated L spine MRI and placed referral to our clinic to discuss possible injections. Symptoms occur daily. Describes pain as "zaragoza." Pain is constant, rated4/10 on average, increases to 10/10 at worst. Generally worse at night. Aggravating factors include: walking, standing. +++ shopping cart sign. Alleviating factors include: sitting, transitional movem ent. Difficulty sitting in chair and car. Associated LE weakness/fatigue with activity, needs to rest frequently for relief. Denies associated paresthesia. Denies bowel or bladder incontinence. Denies hx spine surgery or injections. 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 Reviewed L spine MRI 07/11/23 - listhesis L4/5, no compression changes, severe central stenosis L4/5with severe facet arthropathy, moderate B foraminal narrowing L5/S1, mild to moderate central stenosis L3/4. Incidental finding L renal lesion, angiomyolipoma. Radiology recommending U/S. Per patient, has never been diagnosed with renal lesion. Significant past medical hx includes: pulmonary embolism, paroxysmal atrial fibrillation. Current medications used for pain: mobic, tramadol. Past medications used for pain: ibuprofen. Anticoagulation therapy: no Diabetic: no Presents with sister, Bianca. PAST MEDICAL HISTORY: Past Medical History: Diagnosis Date Atypical migraine 11/08/2021 Chronic insomnia 06/18/2021 Depression with anxiety 10/24/2018 Diverticulosis of colon History of pulmonary embolism 07/09/2020 Bilateral in setting of covid19 and immobility Obesity, Class I, BMI 30.0-34.9 (see actual BMI) 06/20/2021 Overweight (BMI 25.0-29.9) 07/26/2022 Paroxysmal atrial fibrillation (HCC) 07/09/2020 Prediabetes 03/07/2021 Past Medical History - Pertinent Findings: (-) clotting disorder PAST SURGICAL HISTORY: Past Surgical History: Procedure Laterality Date ABDOMEN SURGERY PROCEDURE NEC 05/2013 tummy tuck ARTHROSCOPY OF JOINT knee CARPAL TUNNEL SURGERY rt hand COLONOSCOPY, DIAGNOSTIC (RECTUM) 05/18/08 normal, repeat in 10 yrs COLONOSCOPY, DIAGNOSTIC (RECTUM) 12/05/10 diverticulosis INSERTION OF LENS PROSTHESIS 10/13/2012 left eye INSERTION OF LENS PROSTHESIS rt eye REMOVE KNEE CARTILAGE, MED/LATERAL Right 09/13/14 Meniscus Repair, Arthrotomy FAMILY HISTORY: Family History Problem Relation Name Age of Onset Heart Disorder Father heart attack, at age 68, smoker Family History - Pertinent Findings: (-) clotting disorder SOCIAL HISTORY: Social History Tobacco Use Smoking status: Former Current packs/day: 0.00 Types: Cigarettes Quit date: 03/04/1994 Years since quittin.4 Smokeless tobacco: Never Vaping Use Vaping status: Never Used Substance Use Topics Alcohol use: Yes Comment: rare Drug use: No CURRENT MEDICATIONS: Note that discontinued and completed medications (per the MAR) continue to display for 24 hours. Ordered medications to be given in the future also display. Current Outpatient Medications Medication Sig Dispense Refill Ventolin HFA 108 (90 Base) MCG/ACT Inhalation Aerosol Solution Inhale by mouth 2 Puffs every 4 hours as needed for Wheezing. 8 g 1 Rizatriptan Benzoate 10 MG Oral Tablet (Maxalt) Take 1 Tablet by mouth as needed for Migraine. at onset of headache, may repeat every 2 hours up to 2 times. Up to 3 tablets in 24 hours 20 Tablet 3 Ramelteon 8 MG Oral Tablet (Rozerem) Take 1 Tablet by mouth at bedtime. 90 Tablet 3 Escitalopram Oxalate 5 MG Oral Tablet (Lexapro) Take 1 Tablet by mouth in the morning. 90 Tablet 2 Levothyroxine Sodium 112 MCG Oral Tablet (Levoxyl) take 1 tablet by mouth once daily AT LEAST 30 MINUTES PRIOR TO BREAKFAST OR OTHER MEDS 90 Tablet 2 Meloxicam 15 MG Oral Tablet (Mobic) TAKE ONE TABLET BY MOUTH EVERY MORNING FOR PAIN 30 Tablet 0 traMADol HCl 50 MG Oral Tablet (Ultram) Take 1 Tablet by mouth every 6 hours as needed (take 1 tablet by mouth every 6 hours if needed for severe pain). 30 Tablet 0 Zolpidem Tartrate 10 MG Oral Tablet (Ambien) Take 1 Tablet by mouth at bedtime. for sleep. 30 Tablet 0 Clobetasol Propionate 0.05 % External Cream (Temovate) Apply topically to affected area 2 times a day. To affected area for up to two weeks. 15 g 1 No current facility-administered medications for this visit. ALLERGIES: Patient has no known allergies. ROS: Constitutional: Negative for fatigue, fever, appetite change, unexplained weight loss. ENT: Negative for hearing loss, sore throat. Respiratory: Negative for cough, shortness of breath, dyspnea. Musculoskeletal: Negative for neck, mid-back pain. + low back pain - see HPI Neurological: Negative for headaches, seizures. Genitourinary: Negative for dysuria, urinary frequency, hematuria. Hematologic/ Lymphatic: Negative for easy bleeding, bruising, lymphadenopathy. Gastrointestinal: Negative for abdominal pain, nausea, vomiting, constipation, diarrhea. Cardiovascular: Negative for chest pain, palpitations, ankle swelling, orthopnea. PHYSICAL EXAMINATION: Most Recent Vital Signs: There were no vitals filed for this visit. General Appearance: Patient appears to be about stated age, pleasant and cooperative with normal affect. HEENT: head normocephalic and pupils equal round and reactive to light and accommodation, EOMI Chest: No gross abnormality. Nonlabored breathing. Lumbar Spine: Normal lumbar lordatic curvature is present. Skin is intact without gross abnormalities. No masses palpable. Midline, B paravertebral musculature and B sacroiliac joint nontender. No evidence of myofascial trigger points. Limited active ROM with flexion and extension of the lumbar spine. Lower Extremity Strength: Hip Flexion 5/5 bilaterally. Hip Abductor 5/5 bilaterally. Hip Adductor 5/5 bilaterally. Extensor Hallicus Longus 5/5 bilaterally. Deep Tendon Reflex: Patellar: 2/4 bilaterally. Achilles: 2/4 bilaterally. Low Back Provocative Testing: REYES test: negative bilaterally. Straight Leg Raise Test: negative bilaterally. Lumbar Facet Loading: mildly positive bilaterally. Sensation: Dermatomal sensation not formally tested. Grossly normal and symmetric unless otherwise specified. Gait: Intact, no sign of ataxia. Ambulates without assistance. IMAGING: MRI L SPINE WO CONTRAST - 07/11/2023 3:10 pm For the purpose of this report, 5 lumbar type vertebrae are assumed. Please refer to sagittal T2 weighted images of the lumbar spine for designated vertebral labeling. There is grade 1 anterolisthesis of L4 on L5, likely degenerative in etiology. Endplate degenerative changes are noted at L4-L5 and L5-S1 levels. A few Schmorl's nodes are noted at T10-T11, T11-T12 and T12-L1 levels. Vertebral bodies demonstrate normal signal intensity on all sequences. There are no compression fractures. The conus medullaris terminates at the level of L1-L2. The distal spinal cord signal intensity is normal. Multilevel disc desiccation is seen in the lumbar spine. Bilateral peripelvic renal cysts are seen. Afat containing lesion is seen in the interpolar region of the left kidney, likely representing angiomyolipoma. This could be further evaluated with ultrasonography, if clinically indicated. The aortais normal. L1-L2: Mild disc. There is mild bilateral facet arthropathy. There is no neuroforaminal stenosis. There is no spinal canal stenosis. L2-L3: Mild disc bulge. There is klim-sa-jdjoypbp right and mild left facet arthropathy. There is mild bilateral neuroforaminal stenosis. There is ligamentum flavum infolding. There is mild spinal canal stenosis. L3-L4: Mild disc bulge. There is moderate bilateral facet arthropathy. There is no neuroforaminal stenosis. There is ligamentum flavum infolding. There is pxen-zb-fluorqba spinal canal stenosis. L4-L5: Mild disc bulge. There is severe bilateral facet arthropathy. There is mild bilateral neuroforaminal stenosis. There is ligamentum flavum infolding. There is severe spinal canal stenosis with compression of the nerve roots of cauda equina. L5-S1: Hbiq-wq-xolhqjzb disc bulge. There is moderate bilateral facet arthropathy. There is moderate bilateral neuroforaminal stenosis. There is no spinal canal stenosis. IMPRESSION 1. Multilevel degenerative changes in the lumbar spine as described above, more pronounced at L4-N5ghbol with resultant severe spinal canal stenosis and compression of the nerve roots of cauda equina at this level. 2. A fat containing lesion in the interpolar region of the left kidney, likely representing angiomyolipoma. This could be further evaluated with ultrasonography, if clinically indicated. ASSESSMENT: Spinal stenosis with neurogenic claudication Severe L4/5 PLAN: Chronic low back pain with neurogenic claudication despite conservative care. Symptoms are affecting ADL. Neurologically intact. Reviewed L spine MRI 07/11/23 - listhesis L4/5, no compression changes,severe central stenosis L4/5 with severe facet arthropathy, moderate B foraminal narrowing L5/S1, mild to moderate central stenosis L3/4. Discussed spinal stenosis, neurogenic claudication, consideration of injection and/or surgical consultation. Declines surgical consultation at this time. Is interested in LESI using fluoroscopy. Risks including, but not limited to epidural hematoma, infection, worsening pain, failure to alleviate pain, nerve injury and possible steroid side effects were reviewed. Pre-procedure instructions reviewed - needs test car driver, stop mobic three days prior. Due to severity and duration of symptoms, will schedule DELMA L5/S1. Requesting medication for anxiety regarding such procedure - one time dose ativan provided, will take thirty minutes prior to procedure - reiterated importance of test car driver. Incidental finding L renal lesion, angiomyolipoma. Radiology recommending U/S. Per patient, has never been diagnosed with renal lesion. Will message PCP/ordering provider regarding possible U/S. Requesting disc copy of L spine MRI, staff message sent to radiology to assist. Saritha Mendoza PA-C 07/24/2023 documented in this encounter Nursing Notes * Shelbi Santana LPN - 07/24/2023 12:23 PM EDT Patient presents with low back and occ b/l lower ext pain x2yrs Failed chiro/PT/massage therapy Relieved with sitting in chair or car MRI in chart Worse with certain movements-"takes my breath away", worse at night documented in this encounter Plan of Treatment Upcoming Encounters Date Type Department Care Team (Latest Contact Info) Description 09/26/2023 1:20 PM EDT Hospital Encounter OR [facility], Operating Room [facility] [address] [place] [phone] Jonathan Ball, [address] [place] [phone] 09/26/2023 1:20 PM EDT - 09/26/2023 1:45 PM EDT Surgery OR [facility], Operating Room [facility] [address] [place] [phone] Jonathan Ball, [address] [place] [phone] INJECTION SPINE LUMBAR OR [facility] 09/30/2023 1:15 PM EDT Imaging Radiology [address] [place] [address] 10/04/2023 8:20 AM EDT Office Visit Family Practice [address] [place] [address] Ishan Galvin PA-C [address] [place] [address] Scheduled Orders Name Type Priority Associated Diagnoses Orde r Schedule INJECT DX/THER SUBSTANCE INTERLAMINAR LUMBAR/SACRAL W IMAGE GUIDE Procedures Routine Spinal stenosis of lumbar region with neurogenic claudication Lumbar radicular pain Expected: 10/24/2023 (Approximate), Expires: 08/23/2024 Scheduled Procedures Name Priority Associated [...] as of this encounter Visit Diagnoses Diagnosis Spinal stenosis of lumbar region with neurogenic claudication- Primary Spinal stenosis, lumbar region, with neurogenic claudication Lumbar radicular pain Thoracic or lumbosacral neuritis or radiculitis, unspecified Spinal stenosis of lumbar region with neurogenic claudication Spinal stenosis, lumbar region, with neurogenic claudication documented in this encounter Care Teams Sound Technician Supervisor Relationship Specialty Start Date End Date [facility]ummer [facility] [place] [address] PCP - General Family Medicine 07/14/20 documented as of this encounter
--- OUTSIDE RECORDS SUMMARY | 2023-09-16 11:04 | External Medical Summary | Summary of Care ---
Author Name Unknown Organization [facility] Address [address] [place] [address] Phone [phone] Care Team Providers Care Neckties Painter Name Role Phone Roberto Pruett MD Primary Care Provider [phone] Reason for Referral * Medication Prior Authorization - Pending Review Specialty Diagnoses / Procedures Referred By Conttessa t Referred To Contact Diagnoses Chronic insomnia Roberto Pruett MD [address] [place] [address] Referral ID Status Reason Start Date Expiration Date V isits Requested Visits Authorized [id number] Pending Review [phone] Reason for Visit * Reason Onset Date Comments Medication Refill 07/31/2023 Encounter Details Date Type Department Care Team (Late st Contact Info) Description 07/31/[address] [facility] [address] [place] [phone] Roberto Pruett MD [address] [place] [address] Chronic insomnia; Nontraumatic complete tear of right rotator cuff; Primary osteoarthritis involving multiple joints; Chronic right-sided low back pain with right-sided sciatica Allergies No known active allergiesdocumented as of this encounter (statuses as of 08/01/2023) Medications Medication Sig Dispensed Refills Start Date [...] as of this encounter (statuses as of 08/01/2023) Active Problems Problem Noted Date Diagnosed Date Overweight (BMI 25.0-29.9) 07/26/2022 Acute recurrent frontal sinusitis 07/26/2022 Atypical migraine 11/08/2021 Chronic insomnia 06/18/2021 Prediabetes 03/07/2021 History of atrial fibrillation 03/06/2021 History of pulmonary embolism 07/09/2020 Overview: Bilateral in setting of covid19 and immobility Depression with anxiety 10/24/2018 Acquired hypothyroidism 07/02/2013 documented as of this encounter (statuses as of 08/01/2023) Resolved Problems Problem Noted Date Diagnosed Date Resolved Date Obesity, Class I, BMI 30.0-3 4.9 (see actual BMI) 06/20/2021 05/31/2023 Paroxysmal atrial fibrillation 07/09/2020 03/06/2021 Insomnia 07/02/2013 06/18/2021 Acute sinusitis 07/08/2012 07/02/2013 Anxiety state 12/25/2007 07/02/2013 NONE 05/11/2004 12/25/2007 documented as of this encounter (statuses as of 08/01/2023) Immunizations Name Administration Dates Next Due COVID-19 [...] Miscellaneous Notes * Telephone Encounter - Roberto Pruett MD [...] ROBERTO PRUETT * Telephone Encounter - Roberto Ornelas, [facility] - 08/01/2023 1:48 PM EDT Pending Prescriptions: [...] FOR PAIN * Telephone Encounter - Roberto Ornelas, [facility] - 08/01/2023 1:47 PM EDT I have reviewed the patients controlled substance dispensing history in the Prescription Drug Monitoring Program in compliance with the [facility] regulations before prescribing a controlled substance. PDMP [...] is due for refill: 07/16 06/23 Pharmacy: [facility] [address] [place] [address] Is this request for a controlled substance? Yes and Urine Drug Screen Not completed Toxicology results: No results found for this or any previous visit. Please approve if appropriate. Thanks, Roberto Ornelas, PharmD Clinical Pharmacist [facility](formerly telepharmacy) [phone] 08/01/2023, 1:47 PM * Telephone Encounter - Rita Todd CPhT - 07/31/2023 10:22 AM EDT Did you pend patient's preferred pharmacy and medication before forwarding?yes Pharmacy: [facility] [address] [place] [address] Pending Prescriptions: Disp Refills Zolpidem Tartrate 10 [...] was the last refill date 06/18/2023 w/ [id number] and dosage 30 and Urine Drug Screen [...] EDT Hospital Encounter OR [facility], Operating Room [facility] [address] [place] [phone] Jonathan Ball, [address] [place] [phone] 09/26/2023 1:20 PM EDT - 09/26/2023 1:45 PM EDT Surgery OR [facility], Operating Room [facility] [address] [place] [phone] Jonathan Ball DO [address] [place] [phone] INJECTION SPINE LUMBAR OR [facility]AL 09/30/2023 1:15 PM EDT Imaging Radiology [address] [place] [address] 10/04/2023 8:20 AM EDT Office Visit Family Practice [address] [place] [address] Ishan Galvin PA-C [address] [place] [address] Scheduled Procedures Name Priority Associated Diagnoses Date/Ti [...] HbA1c 11/14/2023 11/13/2022, 03/06/2021 TSH 11/14/2023 11/13/2022, 1006/2021, 03/06/2021, Additional history exists Lipid Panel 11/14/2027 [...] claudication documented in this encounter Care Teams Neckties Painter Relationship Specialty Start Date End Date Roberto Pruett MD [address] [place] [address] PCP - General Family Medicine 07/14/20 documented as of this encounter
--- OUTSIDE RECORDS SUMMARY | 2023-09-16 11:04 | External Medical Summary | Summary of Care ---
Author Name Unknown Organization [facility] Address [address] [place] [address] Phone [phone] Care Team Providers Care Sheet Rock Applier Name Role Phone Emery Pulmmer MD Primary Care Provider [phone] Reason for Visit * Reason Onset Date Comments Test Results 07/13/2023 Unexpected or In determinate Result Encounter Details Date Type Department Care Team (Late st Contact Info) Description 07/13/2023 Telephone Radiology [address] [facility] [place] [address] Emery Plummer MD [address] [place] [facility] [place] [address] Test Results (Unexpected or Indeterminate ... Allergies No known active allergiesdocumented as of this encounter (statuses as of 07/16/2023) Medications Medication Sig Dispensed Refills Start Date [...] EVERY MORNING FOR PAIN 30 Tablet 0 06/18/2023 Active traMADol HCl 50 MG Oral Tablet (Ultram)Indications:No ntraumatic complete tear of right rotator cuff,Primary osteoarthritis involving multiple joints Take 1 Tablet by mouth every 6 hours as needed (take 1 tablet by mouth every 6 hours if needed for severe pain). 30 Tablet 0 06/18/2023 Active Zolpidem Tartrate 10 MG Oral Tablet (Ambien)Indications:Ch ronic insomnia Take 1 Tablet by mouth at bedtime. for sleep. 30 Tablet 0 06/18/2023 Active Clobetasol Propionate 0.05 % External Cream (Temovate) Apply topically to affected area 2 times a day. To affected area for up to two weeks. 15 g 1 06/17/2023 Active documented as of this encounter (statuses as of 07/16/2023) Active Problems Problem Noted Date Diagnosed Date Overweight (BMI 25.0-29.9) 07/26/2022 Acute recurrent frontal sinusitis 07/26/2022 Atypical migraine 11/08/2021 Chronic insomnia 06/18/2021 Prediabetes 03/07/2021 History of atrial fibrillation 03/06/2021 History of pulmonary embolism 07/09/2020 Overview: Bilateral in setting of covid19 and immobility Depression with anxiety 10/24/2018 Acquired hypothyroidism 07/02/2013 documented as of this encounter (statuses as of 07/16/2023) Resolved Problems Problem Noted Date Diagnosed Date Resolved Date Obesity, Class I, BMI 30.0-3 4.9 (see actual BMI) 06/20/2021 05/31/2023 Paroxysmal atrial fibrillation 07/09/2020 03/06/2021 Insomnia 07/02/2013 06/18/2021 Acute sinusitis 07/08/2012 07/02/2013 Anxiety state 12/25/2007 07/02/2013 NONE 05/11/2004 12/25/2007 documented as of this encounter (statuses as of 07/16/2023) Immunizations Name Administration Dates Next Due COVID-19 [...] encounter Miscellaneous Notes * Telephone Encounter - Christelle Pierce LPN - 07/16/2023 10:44 AM EDT Duplicate - Addressed in a tele encounter from 07/14/23 * Telephone Encounter - Audrey Andino OSA - 07/13/2023 6:14 PM EDT Hello- The radiologist discovered an unexpected or indeterminate finding on [place] ([id number]) and asks that you review the following report. Study Type: MRI L SPINE WO CONTRAST Date of Study: 07/11/2023 IMPRESSION 1. Multilevel degenerative changes in the lumbar spine as described above, more pronounced at [id number] with resultant severe spinal canal stenosis and compression of the nerve roots of cauda equina at this level. 2. A fat containing lesion in the interpolar region of the left kidney, likely representing angiomyolipoma. This could be further evaluated with ultrasonography, if clinically indicated. Please respond to this encounter to acknowledge receipt of this message and take responsibility to ensure this report is reviewed. Thank you, NORBERTO Branch Client Service [facility] [place] documented in this encounter Plan of Treatment Upcoming Encounters Date Type Department Care Team (Late st Contact Info) Description 07/24/2023 12:30 PM EDT Office Visit [facility] [address] [place] [address] Saritha Mendoza PA-C [address] [place] [address] 09/30/2023 1:15 PM EDT Imaging Radiology [facility] [address] [place] [address] 10/04/2023 8:20 AM EDT Office Visit [facility] [place] [facility] [place] [address] [place] [address] Ishan Galvin PA-C [address] [place] [address] Scheduled Procedures Name Priority Associated Diagnoses Date/Ti me COLONOSCOPY FLEXIBLE PROXIMA L DIAGNOSTIC Recall Special screening for malignant neoplasms, [...] filedocumented as of this encounter Care Teams Sheet [place] Applier Relationship Specialty Start Date End Date Emery Plummer MD [address] [place] [address] PCP - General Family Medicine 07/14/20 documented as of this encounter
[2023-09-16] MEDS: LORazepam 1 MG TAB PO ONE (12:07)
--- NOTE | 2023-09-16 13:02 | Electrocardiogram Report ---
Test Reason : Blood Pressure : / mmHG Vent. Rate : 074 BPM Atrial Rate : 074 BPM P-R Int : 178 ms QRS Dur : 082 ms QT Int : 388 ms P-R-T Axes : 056 034 039 degrees QTc Int : 430 ms Normal sinus rhythm Low voltage QRS Borderline ECG When compared with ECG of 23-MAY-2023 10:16, No significant change was found Confirmed by Jeremy Handy ([id number]) on 09/16/2023 1:02:01 PM Referred By: REFERRED SELF Confirmed By:Jeremy Handy
--- NOTE | 2023-09-16 13:10 | Magnetic Resonance Report ---
MRI OF THE BRAIN WITHOUT CONTRAST CLINICAL HISTORY: Stroke like symptoms. Dizziness and left leg numbness. COMPARISON STUDY: MRI of the brain June 09, 2015. Head CT and CTA of the head performed earlier today . TECHNIQUE: Utilizing a 1.5 Adry magnet and dedicated coil, multiplanar, multiecho imaging of the bra in was performed without IV contrast. Thin cut FLAIR imaging was performed. FINDINGS: There are no foci of restricted diffusion to suggest acute infarct. No acute intracranial h emorrhage, midline shift or mass effect is present. Ventricular system is normal. Basal cisterns are patent. There are no extra-axial collections. Flow-voids for the major intracranial vessels are prese nt. No intracranial masses identified on unenhanced exam. Numerous small white matter T2 hyperintense foci have progressed since MRI of June 09, 2015 and suggest small vessel disease. 9 mm T2 hyperinten se focus within the left frontal lobe white matter on coronal FLAIR image is new since previ ous MRI. A 0.9 cm T2 hyperintense focus within the left upper lobe is unchanged. This favors a promin ent perivascular space Calvarial signal is normal. There is no evidence for sinusitis. IMPRESSION: 1. No acute intracranial findings. 2. Progression of white matter T2 hyperintense foci since MRI of June 09, 2015. These favor small ves alistair disease. 3. 9 mm T2 hyperintense focus within the left frontal lobe white matter which may reflect an old smal l infarct. ACT 112: Negative or not required by law. Electronically signed by: Edson Palumbo M.D. 09/16/2023 1:08 PM
[2023-09-16] MEDS ORDERED: MELOXICAM 7.5 MG TAB PO PRN (15:45)
[2023-09-16] MEDS: APIXABAN 5 MG TABLET PO SCH (17:10)
[2023-09-16] MEDS: MECLIZINE 12.5 MG TAB PO PRN (20:16)
[2023-09-16] MEDS: ZOLPIDEM TARTRATE 5 MG TAB PO PRN (21:17)
[2023-09-17] MEDS: LEVOTHYROXINE SODIUM 112 MCG TABLET PO SCH (06:05)
[2023-09-17 06:33] LABS: Basophils # (auto) 0.06 K/uL (0.00-0.20); Eosinophils # (auto) 0.34 K/uL (0.00-0.50); Eosinophils % (auto) 5.4 %; Hematocrit (blood only) 38.6 % (37.0-47.0); Hemoglobin 12.4 g/dl (12.0-16.0); Immature Granulocytes # (auto) 0.02 K/uL (0.01-0.20); Immature Granulocytes % (auto) 0.3 %; Lymphocytes # (auto) 1.71 K/uL (1.20-3.40); Lymphocytes % (auto) 27.3 %; Mean Corpuscular Hemoglobin 29.5 pg (25.0-34.0); Mean Corpuscular Hgb Conc 32.1 g/dL (32.0-36.0); Mean Corpuscular Volume 91.7 fL (80.0-100.0); Mean Platelet Volume 9.9 fL (9.4-12.4); Monocytes # (auto) 0.54 K/uL (0.11-0.59); Monocytes % (auto) 8.6 %; Neutrophils % (auto) 57.4 %; Platelet Count 267 K/uL (130-400); RDW Standard Deviation 47.2 fL (36.4-46.3); Red Blood Count 4.21 M/uL (4.20-5.40); White Blood Count 6.27 K/ul (4.8-10.8)
[2023-09-17 06:49] LABS: BUN Creatinine Ratio 23.4 (10-20); Calcium 8.8 mg/dl (8.6-10.3); Chol HDL Ratio 4.1 (0-5); Creatinine Clr Calc Pharmacy 66.2 ml/min; Est GFR (African American) 90.7 ml/min; Est GFR (Non-African American) 78.2 ml/min
[2023-09-17 07:04] LABS: Thyroid Stimulating Hormone 0.176 uIu/ml (0.300-4.500)
[2023-09-17 07:39] LABS: T4 Free Thyroxine 0.92 ng/dl (0.61-1.60)
[2023-09-17 07:56] LABS: Estimated Average Glucose 128 mg/dl; Hemoglobin A1C 6.1 % (4.5-5.6)
--- NOTE | 2023-09-17 09:35 | Neurology Consultation ---
Date of Consultation September 17, 2023 Assessment & Plan (1) Vertigo: Vertigo when standing in a 68F with a PMH of afib, not on anticoagulation, and Prior PEs. Her exam while lying in bed is normal. Imaging shows no LVO, severe stenosis or stroke. I have a low suspicion for stroke or vestibulitis since her symptoms resolve completely when in bed. BPPV or orthostatic hypotension could produce similar symptoms. Plan -- echo read pending -- recommend Eliquis given history of afib -- orthostatic vitals -- PT/OT -- outpatient zio patch -- ok to d/c from my perspective Telehealth Consultation Telehealth Information Telehealth Information: I performed this visit using a real-time telehealth connection between my location and the patients location ([facility]). After connecting through interactive tele-video, patient was identified by name and date of and/or wristband check.Patient (or authorized healthcare sales support representative) was informed that this was a telemedicine visit and it was being conducted confidentially over secure lines. My office door was closed and no one else was present in the room with me.Patient (or authorized healthcare sales support representative) provided consent to proceed with the visit, expressed an understanding of privacy and security of the telemedicine visit, and gave permission to have a hospital sales support representative in the room in order to assist with the visit and to conduct portions of the visit, as needed. I informed the patient (or authorized healthcare sales support representative) that I reviewed their record and presented the opportunity for them to ask any questions regarding the visit today. The patient agreed to participate. History of Present Illness Reason for Consultation: stroke like symtpoms Attending Physician: Alberto Gordon DO History of Present Illness Shakila Goncalves is a 68F with a PMH of afib (not on anticoagualtion), non-flow limiting carotid stenosis, depression, who presents with vertigo while standing up. Her symptoms started last Saturday. She was sitting at work and when she went to stand she was having trouble controlling her left leg while walking. These symptoms lastsed for about 20 minutes and then resolved. She did go home and take a nap and then felt fine. Then yesterday she was in bed and when she went to get up the room was spinning. She says it only occurs when she stands up and then resolves with lying down. She denies any double vision, slurred speech or dysphagia. She also denies recent infections, fevers, chills, nausea, vomiting or headache. She does have a history of afib and PEs when she had COVID. Allergies Allergy/AdvReac Type Severity Reaction Status Date / Time prednisone Allergy Intermediate RASH Verified 06/04/23 06:13 Home Medications Medication Instructions Recorded Confirmed Type escitalopram oxalate 5 mg tablet 5 mg PO QAM 09/04/19 09/16/23 History levothyroxine 112 mcg tablet 112 mcg PO QAM 09/04/19 09/16/23 History zolpidem 10 mg tablet 5 mg PO HS PRN Sleep 09/04/19 09/16/23 History meloxicam 15 mg tablet 15 mg PO QAM PRN Pain 09/16/23 09/16/23 History Patient History Medical History (Updated 09/16/23 @ 19:18 by Chelsea Mendes PA-C) Diverticulosis of colon Atypical migraine Pinched nerve lower back, takes meloxicam prn History of depression controlled with med History of COVID-19 (~2019) admitted to hospital Hx pulmonary embolism (~2019) had COVID, admitted to [facility], blood thinners Surgical History H/O abdominoplasty H/O colonoscopy Hx of cataract removal with insertion of prosthetic lens H/O arthroscopic knee surgery Hx of tooth extraction (~2021) with implants History of bilateral carpal tunnel release Family History (Updated 09/16/23 @ 10:59 by Chelsea Mendes PA-C) Other Heart disease Social History Smoking Status: Former smoker Tobacco Type: Cigarettes Cigarettes Per Day: socially; Second Hand Exposure: No; Do You Dip or Chew Tobacco: No; Tobacco Cessation Education Requested by Patient: No Hx Alcohol Use: Yes Alcohol type: beer Hx Substance Use: No Preferred Language: Chadian Communication Ability: Effective Air Compressor Engineer Required: No Beliefs That Will Affect Care: None Current Living Situation: Alone Other Information That Helps Us Care for You: No Feels Safe at Home: Yes Safety Concerns: Feels Safe At This Time Assistive Devices: None Physical Exam Mental Status:alert, oriented to time, place, person, normal recent memory, normal remote memory, normal attention span, normal concentration, normal language, and normal fund of knowledge Cranial Nerves: CN 2 - no visual defect on confrontation and pupils round, equal, reactive to light CN 3, 4, 6 - extra-ocular movements intact and no nystagmus CN 5 - facial sensation intact CN 7 - no facial asymmetry CN 8 - intact hearing CN 9, 10 - palate symmetric, normal gag CN 11 - good shoulder shrug CN 12 - tongue midline MOTOR: Strength was at least antigravity throughout, Pronator drift was absent, and There were no abnormal movements SENSATION: intact and symmetric to pinprick, light touch, vibration and joint position GAIT: deferred COORDINATION: no ataxia with finger to nose testing and heel to rehman testing REFLEXES: cannot assess over telemedicine Results & Data Vital Signs (Past 12 Hours) Vital Signs Temp Pulse Pulse Resp BP Pulse Ox O2 Del Method 09/17/23 07:43 36.3 C L 73 18 106/72 95 Room Air 09/17/23 03:41 36.7 C 71 20 96/61 L 97 Room Air 09/16/23 23:35 80 09/16/23 23:16 36.7 C 85 16 113/67 97 Room Air Laboratory Results Abnormal Lab Results 09/16/23 09/17/23 09:15 05:59 WBC 6.27 RBC 4.21 Hgb 12.4 Hct 38.6 MCV 91.7 MCH 29.5 MCHC 32.1 RDW Std Deviation 47.2 H RDW Coeff of Mis 14.0 Plt Count 267 MPV 9.9 Immature Gran % (Auto) 0.3 Neut % (Auto) 57.4 Lymph % (Auto) 27.3 Pender % (Auto) 8.6 Eos % (Auto) 5.4 Baso % (Auto) 1.0 Neut # (Auto) 3.60 Lymph # (Auto) 1.71 Pender # (Auto) 0.54 Eos # (Auto) 0.34 Baso # (Auto) 0.06 Immature Gran # (Auto) 0.02 PT 10.5 INR 1.0 APTT 23 PTT Ratio 0.9 Sodium 139 139 Potassium 4.3 4.0 Chloride 108 H 107 Carbon Dioxide 25 26 Anion Gap 6 6 BUN 18 18 Creatinine 0.82 0.77 Est Cr Clr Drug Dosing 62.9 66.2 Est GFR ( Amer) 84.0 90.7 Est GFR (Non-Af Amer) 72.5 78.2 BUN/Creatinine Ratio 22.0 H 23.4 H Glucose 98 106 H Estimat Average Glucose 128 Hemoglobin A1c 6.1 H Calcium 9.1 8.8 Magnesium 1.9 Total Bilirubin 0.4 AST 14 ALT 13 Alkaline Phosphatase 58 Troponin I High Sens 3.2 Total Protein 6.5 Albumin 4.0 Globulin 2.5 Albumin/Globulin Ratio 1.6 Triglycerides 73 Cholesterol 181 LDL Cholesterol, Calc 122 VLDL Cholesterol, Calc 15 HDL Cholesterol 44 Cholesterol/HDL Ratio 4.1 TSH 0.176 L Free T4 0.92 Diagnostic Findings Chest X-Ray 09/16/23 09:21 XR chest 1V portable CLINICAL HISTORY: neuro deficit, acute stroke suspected TECHNIQUE: Single frontal radiograph of the chest was obtained. Comparison: Comparison is made to chest radiograph 03/01/2020 FINDINGS: No lines and tubes are seen. The cardiomediastinal silhouette is normal. The lungs are clear. No evidence of pleural effusion or pneumothorax. IMPRESSION: No acute chest disease. ACT 112: Negative or not required by law. Electronically signed by: Myke Arredondo M.D. 09/16/2023 9:[address] 09/16/23 09:21 CT head/brain wo con CLINICAL HISTORY: neuro deficit, acute stroke suspected Technique: Contiguous axial CT images of the head were acquired from the base of the skull to the vertex without intravenous contrast administration. Images were viewed in brain, subdural and bone windows. Automated dose lowering techniques and/or adjustment according to patient size were utilized for this exam. Comparison: None available at the time of this dictation. Findings: The ventricles, basal cisterns, and cerebral sulci are normal. There is no acute intracranial hemorrhage or evidence of acute territorial infarction. Neither mass effect, shift of the midline structures, nor abnormal extra-axial fluid collections are shown. Imaged portions of the paranasal sinuses and mastoid air cells are clear. The orbits appear normal. There are no acute fractures of the calvaria or scalp swelling. Impression: No acute intracranial hemorrhage, no evidence of acute territorial infarction or other acute intracranial disease process. ACT 112: Negative or not required by law. Electronically signed by: Myke Arredondo M.D. 09/16/2023 10:03 AM Head CTA 09/16/23 09:21 CTA ANGIOGRAPHY OF THE HEAD CLINICAL HISTORY: neuro deficit, acute stroke suspected COMPARISON STUDY: MRA of the head June 10, 2015. TECHNIQUE: Helical axial images of the head were obtained following uneventful intravenous administration of 112 cc of Optiray. Sagittal and coronal reconstructions were viewed as well as maximal intensity projections on an independent 3-D workstation. Automated exposure control was utilized for the study. A dose lowering technique was utilized adhering to the principles of ALARA. FINDINGS: No acute intracranial hemorrhage is identified. Ventricular system is normal. Basal cisterns are patent. There are no extra-axial collections. There is moderate atherosclerotic plaque within bilateral cavernous carotids without stenosis. No vessel occlusion is a identified. The posterior circulation is intact. No intracranial aneurysm or dissection. IMPRESSION: No large vessel occlusion. No intracranial aneurysm. ACT 112: Negative or not required by law. Electronically signed by: Edson Palumbo M.D. 09/16/2023 10:23 AM Neck CTA 09/16/23 09:21 CT ANGIOGRAPHY OF THE NECK WITH CONTRAST CLINICAL HISTORY: neuro deficit, acute stroke suspected COMPARISON STUDY: MRA of the neck June 10, 2015. Technique: CT angiography of the carotid and vertebral arteries was obtained using Optiray and 3D reconstruction on an independent workstation. NASCET criteria was utilized. Automated exposure control was utilized for the study. A dose lowering technique was utilized adhering to the principles of ALARA. CT DOSE: 1047.29 mGy.cm Findings: Visualized portions of the lung apices are unremarkable. There are no cervical spine fracture. There is no cervical lymphadenopathy. There is moderate atherosclerotic plaque within the proximal bilateral internal carotid arteries without significant stenosis. The origin of the left vertebral artery is suboptimally assessed due to artifact. No definite stenoses within the vertebral arteries are present. There is no dissection or aneurysm within the neck. IMPRESSION: 1. Moderate atherosclerotic plaque within the proximal bilateral internal carotid arteries without significant stenosis. 2. No dissection or aneurysm within the neck. 3. Patent bilateral vertebral arteries. Suboptimal evaluation of the left vertebral artery origin. ACT 112: Negative or not required by law. Electronically signed by: Edson Palumbo M.D. 09/16/2023 10:21 AM Brain MRI 09/16/23 11:43 MRI OF THE BRAIN WITHOUT CONTRAST CLINICAL HISTORY: Stroke like symptoms. Dizziness and left leg numbness. COMPARISON STUDY: MRI of the brain June 09, 2015. Head CT and CTA of the head performed earlier today. TECHNIQUE: Utilizing a 1.5 Adry magnet and dedicated coil, multiplanar, multiecho imaging of the brain was performed without IV contrast. Thin cut FLAIR imaging was performed. FINDINGS: There are no foci of restricted diffusion to suggest acute infarct. No acute intracranial hemorrhage, midline shift or mass effect is present. Ventricular system is normal. Basal cisterns are patent. There are no extra- axial collections. Flow-voids for the major intracranial vessels are present. No intracranial masses identified on unenhanced exam. Numerous small white matter T2 hyperintense foci have progressed since MRI of June 09, 2015 and suggest small vessel disease. 9 mm T2 hyperintense focus within the left frontal lobe white matter on coronal FLAIR image 15 of is new since previous MRI. A 0.9 cm T2 hyperintense focus within the left upper lobe is unchanged. This favors a prominent perivascular space Calvarial signal is normal. There is no evidence for sinusitis. IMPRESSION: 1. No acute intracranial findings. 2. Progression of white matter T2 hyperintense foci since MRI of June 09, 2015. These favor small vessel disease. 3. 9 mm T2 hyperintense focus within the left frontal lobe white matter which may reflect an old small infarct. ACT 112: Negative or not required by law. Electronically signed by: Edson Palumbo M.D. 09/16/2023 1:08 PM
[2023-09-17] MEDS: ATORVASTATIN 40 MG TAB PO SCH (09:41)
[2023-09-17] MEDS: ESCITALOPRAM OXALATE 10 MG TAB PO SCH (09:41)
[2023-09-17] MEDS: diazePAM 2 MG TABLET PO PRN (09:44)
--- NOTE | 2023-09-17 09:44 | Cardiology Consultation ---
Date of Consultation September 17, 2023 Assessment & Plan (1) Stroke-like symptoms: (2) Vertigo: (3) PAF (paroxysmal atrial fibrillation): (4) Carotid arterial disease: Patient with noted strokelike symptoms several days ago, and now symptoms of vertigo. Telemetry performed while hospitalized reveals sinus rhythm in the 70s without evidence of recurrent atrial fibrillation. Previous Zio patch monitor dating back to February, revealed a 9-second episode of paroxysmal atrial fibrillation at that time. It would appear that her anticoagulation was discontinued after she had been on treatment for a year for provoked pulmonary embolism which had occurred in the setting of stasis and COVID-19 illness. Given history of atrial fibrillation would recommend resuming anticoagulation with Eliquis 5 mg twice daily as has already occurred. Echocardiogram suggest mild to moderate atherosclerotic plaque in the aortic arch. I reviewed the images of her CT angiogram of the head and neck vessels and no significant aortic plaque was noted on the CT images, but was present in the carotids. I do not think performing a STEPHANIE to evaluate for aortic arch plaque would change the patient's treatment. Would recommend addition of statin for LDL goal of less than 70 mg/dL and the patient is agreeable to this. Agree with neurology recommendation to proceed with outpatient Zio patch for evaluation of alternative cause of disequilibrium and to reassess atrial fibrillation burden. Even if the Zio patch reveals no atrial fibrillation however I would still favor ongoing anticoagulation. History of Present Illness Attending Physician: Alberto Gordon DO History of Present Illness Shakila Goncalves is 68 year old female seen in cardiology consultation per the request of Dr Betancourt for the evaluation of stroke like symptoms and findings of atherosclerotic plaque in the aortic arch as visualized on transthoracic echocardiogram. Patient notes that 3 days prior to presentation she had an episode of clumsiness of her left leg. 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 She took a nap and symptoms resolved. She sought treatment yesterday. At present her left leg symptoms have resolved, but she has a separate symptom of a vertigo sensation when she gets up to walk. She denies any subjective palpitations at present. Patient had initially been seen in outpatient cardiology consultation by Dr. Phillips of our practice in March,. Per review of outpatient progress notes, she was diagnosed with COVID-19 in January, and recovered at home. She was immobilized in bed for nearly 8 days. In February, she presented to the emergency department with hypoxia and was diagnosed with bilateral pulmonary embolism. She was subsequently prescribed Xarelto for anticoagulation. In late February, she developed subjective palpitations and a Zio patch revealed a 9-second ashleigh of paroxysmal atrial fibrillation. Echocardiogram performed as an outpatient in April, revealed normal biventricular chamber size and systolic function. LVEF in the range of 55 to 59%. No evidence of pulmonary hypertension at that time. Mild left atrial enlargement noted. At the time of most recent cardiology follow-up visit in 2020 ongoing anticoagulation was recommended given development of paroxysmal atrial fibrillation. Per review of records, Xarelto 20 mg daily was discontinued as of March,, however progress notes available did not seem to clearly delineate the rationale for discontinuing the anticoagulation. Social History: owns and manages a restaurant, [employer] former smoker Allergies Allergy/AdvReac Type Severity Reaction Status Date / Time prednisone Allergy Intermediate RASH Verified 06/04/23 06:13 Home Medications Medication Instructions Recorded Confirmed Type escitalopram oxalate 5 mg tablet 5 mg PO QAM 09/04/19 09/16/23 History zolpidem 10 mg tablet 5 mg PO HS PRN Sleep 09/04/19 09/16/23 History meloxicam 15 mg tablet 15 mg PO QAM PRN Pain 09/16/23 09/16/23 History apixaban 5 mg tablet (Eliquis) 5 mg PO BID #60 tabs 09/17/23 Rx aspirin 81 mg tablet,delayed 81 mg PO DAILY #90 tabs 09/17/23 Rx release (Ecotrin Low Strength) atorvastatin 40 mg tablet 40 mg PO QAM #30 tabs 09/17/23 Rx diazepam 2 mg tablet 2 mg PO TID PRN Dizziness #12 tabs 09/17/23 Rx levothyroxine 88 mcg tablet 88 mcg PO DAILYBB 30 days #30 tabs 09/17/23 Rx (Synthroid) meclizine 25 mg tablet 25 mg PO TID PRN Dizziness #90 tabs 09/17/23 Rx Patient History Medical History Diverticulosis of colon Atypical migraine Pinched nerve lower back, takes meloxicam prn History of depression controlled with med History of COVID-19 (~2019) admitted to hospital Hx pulmonary embolism (~2019) had COVID, admitted to [facility], blood thinners Surgical History H/O abdominoplasty H/O colonoscopy Hx of cataract removal with insertion of prosthetic lens H/O arthroscopic knee surgery Hx of tooth extraction (~2021) with implants History of bilateral carpal tunnel release Family History (Updated 09/16/23 @ 10:59 by Chelsea Mendes PA-C) Other Heart disease Social History Smoking Status: Former smoker Tobacco Type: Cigarettes Cigarettes Per Day: socially; Second Hand Exposure: No; Do You Dip or Chew Tobacco: No; Tobacco Cessation Education Requested by Patient: No Hx Alcohol Use: Yes Alcohol type: beer Hx Substance Use: No Preferred Language: Yi Communication Ability: Effective Medical Apparatus Model Maker Required: No Beliefs That Will Affect Care: None Current Living Situation: Alone Other Information That Helps Us Care for You: No Feels Safe at Home: Yes Safety Concerns: Feels Safe At This Time Assistive Devices: None Physical Exam Physical Exam: General: no acute distress and stated age Eyes: conjunctiva are pink and non-injected, sclera clear Neck: normal jugular venous pulse, no hepatojugular reflux Chest: normal shape and normal respiratory effort Lungs: clear to auscultation and percussion Cardiac Exam: - regular heart sounds, no murmurs, rubs, or gallops, no jugular venous distention Abdomen: abdomen soft, non-tender, no abnormal masses and no hepatosplenomegaly Musculoskeletal: no gait disturbance, no weakness Extremities: no edema and no cyanosis Neuro:awake, conversant, follows commands, no focal motor deficits Psych: appropriate affect and insight. Results & Data Vital Signs (Past 12 Hours) Vital Signs Temp Pulse Pulse Resp BP Pulse Ox O2 Del Method 09/17/23 07:43 36.3 C L 73 18 106/72 95 Room Air 09/17/23 03:41 36.7 C 71 20 96/61 L 97 Room Air 09/16/23 23:35 80 09/16/23 23:16 36.7 C 85 16 113/67 97 Room Air Laboratory Results Troponin x 1 negative at 3.2 Total cholesterol 181 LDL 122 HDL 44 Triglycerides 73 Transthoracic echocardiogram performed 09/16/2023 and interpret independently: Bubble study from previous echocardiogram performed in 2016 documented no interatrial shunt and therefore full study was not repeated Mild concentric left ventricular perjury present LV wall motion is normal, LVEF in the range of 55 to 60% Grade 1 diastolic dysfunction There is suggestion of mild to moderate mobile atherosclerotic plaque in the aortic arch on technically limited images Diagnostic Findings Moderate atherosclerotic plaque was noted in the proximal bilateral internal carotid arteries without significant stenosis on CT angiogram of the neck MRI of the brain performed 09/16/2023 1. No acute intracranial findings. 2. Progression of white matter T2 hyperintense foci since MRI of June 09, 2015. These favor small vessel disease. 3. 9 mm T2 hyperintense focus within the left frontal lobe white matter which may reflect an old small infarct. (4) Carotid arterial disease Carotid artery disease type: unspecified Laterality: unspecified laterality Qualified Code(s): I77.9 - Disorder of arteries and arterioles, unspecified
--- NOTE | 2023-09-17 10:15 | Discharge Summary ---
Discharge Summary Date of Service September 17, 2023 Principal Dx & Hospital Course #1 = Principal Diagnosis (1) Vertigo: (2) Hypothyroidism: (3) PAF (paroxysmal atrial fibrillation): (4) Prediabetes: Plan Patient was observed in the hospital. She was monitored on telemetry. There was no evidence of arrhythmias or atrial fibrillation. Patient continued with significant vertiginous symptoms most specifically with changes in position. History is very consistent with benign positional vertigo. Is also noted that her TSH was slightly suppressed. She was evaluated by neurology on the day of discharge. MRI of the brain was performed which was negative for acute infarct. She was ruled out for acute stroke. Her other vital signs and blood pressures were well-controlled. She was able to get up and ambulate with a walker. She felt competent she was able to care for herself at home. As mentioned her symptoms consistent with positional vertigo. She was started on meclizine and Valium. This significantly improved her symptoms. She was seen by physical therapy. Patient does have reported history of paroxysmal atrial fibrillation in the setting of acute illness. She is a high risk for recurrent episodes of paroxysmal atrial fibrillation. She started on Eliquis and this should be continued outpatient. Patient be discharged home outpatient follow-up with the PCP recommending outpatient therapy for ongoing Yuri maneuvers and recommend outpatient Zio patch for monitoring of atrial fibrillation. Notes For Next Care Provider Recommend Zio patch monitoring TSH in 4 to 6 weeks Outpatient therapies for vertigo Consider oral medical treatment for prediabetes Medication Changes From Visit Eliquis for paroxysmal atrial fibrillation Meclizine and Valium for vertigo Synthroid dose decreased due to suppressed TSH Admission HPI Per Admitting Provider This is a 68 y/o female with history of PAF, no longer on AC, hx PE associated with COVID-19 infection, prediabetes, hypothyroidism, and other history as outlined who presents to the ED today with stroke-like symptoms. 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 She sat down to rest and was evaluated by a medic who was there. These symptoms resolved within about half an hour so she did not come to the ED for additional evaluation. No sense of dysequilibrium at that time. Over the weekend, she reports working long days at her business and felt fine without recurrence of the symptoms. Today woke up around 4 am to go to the bathroom and has trouble walking due to sense of dysequilibrium, balance off which caused legs not to function. Describes sensation of her head spinning, especially when she tries to walk or turns her head to the side. She denies visual changes, numbness or tingling. No overt weakness in the arms or legs. Does note a new left hand tremor today. She is right-hand dominant. She has a history of migraines with associated difficulty speaking - her one was 2-3 weeks ago. She denies LEVIN at present and current symptoms feel different from prior migraines. She denies dysphagia, N/V. Currently feels hungry and asking to eat. She was diagnosed with paroxysmal atrial fibrillation when she had COVID and was placed on Xarelto but reports this was discontinued for unknown reasons. Currently, she denies chest pain, palpitations, syncope, near-syncope. Admission Exam Per Admitting Provider See H&P Discharge Exam Constitutional: Alert HEENT: Mucous membranes moist. Lungs: Clear to auscultation, decreased, no wheezes rales or rhonchi CV: S1-S2, regular Abdomen: Soft, nontender, nondistended Extremities: No significant edema Neuro: No focal deficits, some vertiginous symptoms with changes in position, and a stroke score equals 0 Psych: Cooperative, normal mood Updated Medication List Medication Instructions Recorded Confirmed Type escitalopram oxalate 5 mg tablet 5 mg PO QAM 09/04/19 09/16/23 History levothyroxine 112 mcg tablet 112 mcg PO QAM 09/04/19 09/16/23 History zolpidem 10 mg tablet 5 mg PO HS PRN Sleep 09/04/19 09/16/23 History meloxicam 15 mg tablet 15 mg PO QAM PRN Pain 09/16/23 09/16/23 History apixaban 5 mg tablet (Eliquis) 5 mg PO BID #60 tabs 09/17/23 Rx aspirin 81 mg tablet,delayed 81 mg PO DAILY #90 tabs 09/17/23 Rx release (Ecotrin Low Strength) atorvastatin 40 mg tablet 40 mg PO QAM #30 tabs 09/17/23 Rx diazepam 2 mg tablet 2 mg PO TID PRN Dizziness #12 tabs 09/17/23 Rx levothyroxine 88 mcg tablet 88 mcg PO DAILYBB 30 days #30 tabs 09/17/23 Rx (Synthroid) meclizine 25 mg tablet 25 mg PO TID PRN Dizziness #90 tabs 09/17/23 Rx Hospital Stay Data Consultations 09/16/23 11:01 ED Decision to Admit Stat 09/16/23 14:05 Consult Neurology Routine 09/16/23 21:22 Consult Cardiology Routine Diagnostic Imagining Performed 09/16/23 09:21 CT angio head w con Stat CT angio neck with con Stat CT head/brain wo con Stat 09/16/23 11:43 MRI Brain [MR brain wo con] Urgent Reviewed imaging, laboratory and diagnostic studies. Pertinent findings as below. MRI brain negative for acute infarct TSH 0.17 Hemoglobin A1c 6.1% Pending Results Patient Have Any Pending Studies at Discharge: No Discharge Instructions Given to Patient (Per Discharging Provider) Recommend outpatient Zio patch Recommend outpatient vestibular training with therapy Recommend checking TSH in 4 to 6 weeks Discussed possible early treatment beyond diet control for prediabetes Total Time Total Time Spent Total Time Spent (In Minutes): 41
[2023-09-17] MEDS: MECLIZINE HCL 25 MG TAB PO SCH (14:30)
[2023-09-18] MEDS ORDERED: LEVOTHYROXINE SODIUM 88 MCG TABLET PO SCH (06:30)
== END 2023-09-17 15:43 | disposition home or self-care (01) | DRG 149 ==
LOC: ED 09:10 → 4W 11:01 → SUATTDRO 11:01 → 4W 13:45